=== PATIENT | male | born 1975 | race Caucasian/White ===

== ENCOUNTER 2023-11-08 01:48 | Day surgery (SDC) | payer BC, SELFPAY ==
[2023-10-27 09:20] VITALS: BMI 40.2
[2023-11-08 10:56] VITALS: BP 140/90; PULSE 82; RESP 18; TEMP 36.1; O2SAT 100
--- NOTE | 2023-11-08 11:04 | P.PNAN_ITS ---
Anes - Initial Pre Proc Eval Procedure: Operation Date: 11/08/23 15:00 Proposed Procedures p Colonoscopy - Miguel Jett MD Date/Time: 11/08/23 11:04 Surgeon: Miguel Jett MD Pre Op Diagnosis: anemia Patient Data Age: 48 Gender: M Height: 1.73 m Weight: 114.8 kg Last Vital Signs Temp 96.9 F L 11/08/23 10:56 Pulse 82 11/08/23 10:56 Resp 82 H 11/08/23 10:56 BP 140/90 11/08/23 10:56 Pulse Ox 100 11/08/23 10:56 O2 Del Method Room Air 11/08/23 10:56 Allergies Allergy/AdvReac Type Severity Reaction Status Date / Time No Known Allergies Allergy Verified 11/08/23 10:53 Home Medications Medication Instructions Recorded Confirmed Type amlodipine 10 mg-benazepril 40 mg 1 cap PO DAILY 10/27/23 11/08/23 History capsule atorvastatin 10 mg tablet 10 mg PO DAILY 10/27/23 11/08/23 History metformin 500 mg tablet 1,000 mg PO BID 10/27/23 11/08/23 History metoprolol tartrate 50 mg tablet 50 mg PO BID 10/27/23 11/08/23 History semaglutide 2 mg/dose (8 mg/3 mL) 2 mg subcut WEEKLY 10/27/23 11/08/23 History subcutaneous pen injector (Ozempic) triamterene 37.5 1 tablet PO DAILY 10/27/23 11/08/23 History mg-hydrochlorothiazide 25 mg tablet Patient hx anesthesia problems: none Family hx anesthesia problems: none Results Review: All pre-operative results and documents have been reviewed as part of the pre- operative evaluation. PMFSH Social History Social History Drinks per week: 1 Living arrangements: with family Spiritual care concerns: No Anes - Eval Final PreProcedure Day of Procedure 11/08/23 11:04 Patient weight: obese Heart: regular rate and rhythm Lungs: clear to auscultation Airway: Mallampati scale class II Neurological: alert and oriented Last oral intake: >/= 8 hours ASA classification: III Emergent: no Anesthetic plan: proceed Anesthesia type and monitoring: general GIVS and standard monitoring Results Review: All pre-operative results and documents have been reviewed as part of the pre- operative evaluation. Informed Consent: The patient's anesthetic plan and its attendant risks and benefits were discussed with the patient/family/POA. Questions were solicited and answers provided to the satisfaction of the patient/family/POA.
[2023-11-08] MEDS: LACTATED RINGERS 1,000 ML 150 ML IV CONT (11:06)
[2023-11-08 11:07] LABS: Glucose Point of Care 120 mg/dl (65-105)
--- NOTE | 2023-11-08 11:10 | PM.HPGS ---
History of Present Illness History of Present Illness Consent: Risks, benefits, and alternatives have been discussed and questions answered. Patient agrees to proceed with procedure. Chief complaint: anemia Narrative: Reji Smith is a 48 year old male with anemia, also noted small amount of blood after defecation- ? hemorrhoids, never had colonoscopy Review of Systems Review of Systems: All systems reviewed & are unremarkable except as noted in HPI and below PMFSH Past Medical History Medical History (Updated 11/08/23 @ 11:11 by Miguel Jett MD) Anemia Social History Social History Drinks per week: 1 Living arrangements: with family Spiritual care concerns: No Meds Home Medications and Allergies Home Medications Medication Instructions Recorded Confirmed Type amlodipine 10 mg-benazepril 40 mg 1 cap PO DAILY 10/27/23 11/08/23 History capsule atorvastatin 10 mg tablet 10 mg PO DAILY 10/27/23 11/08/23 History metformin 500 mg tablet 1,000 mg PO BID 10/27/23 11/08/23 History metoprolol tartrate 50 mg tablet 50 mg PO BID 10/27/23 11/08/23 History semaglutide 2 mg/dose (8 mg/3 mL) 2 mg subcut WEEKLY 10/27/23 11/08/23 History subcutaneous pen injector (Ozempic) triamterene 37.5 1 tablet PO DAILY 10/27/23 11/08/23 History mg-hydrochlorothiazide 25 mg tablet Allergies Allergy/AdvReac Type Severity Reaction Status Date / Time No Known Allergies Allergy Verified 11/08/23 10:53 Vital Signs Vital Signs - 24 hr 11/08/23 10:56 Temperature 96.9 F L Pulse Rate 82 Respiratory Rate 82 H Blood Pressure 140/90 Pulse Oximetry 100 Oxygen Delivery Room Air Exam Const: General: comfortable and no acute distress HENMT: Face/Nose/Sinus: Normal nares present Eyes: General: appearance normal, both eyes and all related structures Neck: Neck: no JVD Resp: Auscultation: clear to auscultation bilaterally Cardio: Rate: regular rate Rhythm: regular rhythm GI: Inspection: non-distended GI Palp: Yes Soft to palpation Skin: General skin exam: normal color Neuro: General: gait normal Speech: normal speech Extrem: General: normal to inspection Psych: Mental Status: mental status grossly normal Assessment and Plan Assessment and plan (1) Anemia: Code(s): D64.9 - Anemia, unspecified Status: Acute Assessment and Plan: colonoscopy
[2023-11-08 11:28] VITALS: BP 117/70; PULSE 83; RESP 20; O2SAT 100
[2023-11-08 11:38] VITALS: BP 136/91; PULSE 82; RESP 17; O2SAT 99
[2023-11-08 11:48] VITALS: BP 139/94; PULSE 83; RESP 18; O2SAT 98
== END 2023-11-08 12:02 | disposition home or self-care (01) ==
PROVIDERS: Visit Provider Internal Medicine Gastroenterology
PROC: 0DJD8ZZ Inspection of Lower Intestinal Tract, Via Natural or Artificial Opening Endoscopic (ICD-10-PCS; CPT 45378; principal; 2023-11-08 15:00)
DX: C20 Malignant neoplasm of rectum (principal); D64.9 Anemia, unspecified; E66.9 Obesity, unspecified; Z68.38 Body mass index [BMI] 38.0-38.9, adult; Z79.84 Long term (current) use of oral hypoglycemic drugs; Z79.85 Long-term (current) use of injectable non-insulin antidiabetic drugs
CPT/HCPCS: 45380; 82948; 88305; 88342; J2704; J7120

== ENCOUNTER 2023-11-11 13:08 | Outpatient (CLI) | payer BC, SELFPAY ==
--- NOTE | ~2023-11-11 | CT_ITS ---
CT of the Abdomen and Pelvis: Indication: Rectal mass Technique: 2.5 mm axial scans were obtained through the abdomen and pelvis following intravenous adm inistration of 100 cc of Omnipaque 350. Dose reduction technique was used on this scan by utilizing a utomated exposure control and iterative reconstruction technique. The dose-length product (DLP) was 1 194.42 mGy-cm. Findings: Scans through the lung bases are unremarkable. The liver, spleen, pancreas, gallbladder, adrenals and kidneys are within normal limits. No evidence of aortic aneurysm. No para-aortic lymphadenopathy. There is circumferential wall thickening of the distal rectum, consistent with rectal adenocarcinoma. No bowel obstruction. Images through the pelvis were performed. There is an enlarged left pelvic sidewall lymph node measur ing 2.1 x 1.7 cm (axial image 154). There are enlarged bilateral inguinal lymph nodes, measuring 4.0 x 2.2 cm on the left, and 4.0 x 2.4 cm and the right. Suspected mildly enlarged right pelvic lymph no de measuring 1.6 cm in diameter (axial image 150). Impression: Circumferential wall thickening of distal rectum is consistent with rectal adenocarcinoma. Lesion racheal sures approximately 7 cm in length. Probable metastatic lymphadenopathy in the bilateral inguinal regions, left pelvic sidewall, and ques tionably in the posterior pelvis. Please see details above. Consider PET/CT to further evaluate/stage, as indicated. Reviewed, dictated and finalized at [facility]. Impression: Circumferential wall thickening of distal rectum is consistent with rectal bonnie ocarcinoma. Lesion measures approximately 7 cm in length. Probable metastatic lymphadenopathy in the bilateral inguinal regions, left pel toyin sidewall, and questionably in the posterior pelvis. Please see details abov e. Consider PET/CT to further evaluate/stage, as indicated.
[2023-11-11 13:30] LABS: Estimated Glomerular Filt Rate > 60
== END 2023-11-11 13:09 ==
PROVIDERS: PCP Internal Medicine Gastroenterology; Visit Provider Internal Medicine Gastroenterology
DX: D64.9 Anemia, unspecified (principal); K62.89 Other specified diseases of anus and rectum
CPT/HCPCS: 74177; Q9967

== ENCOUNTER 2023-11-15 11:38 | Outpatient (CLI) | payer BC, SELFPAY ==
[2023-11-15 11:55] LABS: Basophils Percent Auto 0.4 % (0.2-1.2); Eosinophils Absolute Auto 0.2 K/mm3 (0-0.3); Eosinophils Percent Auto 2.2 % (0-4.4); Hematocrit 30.2 % (42.0-52.0); Hemoglobin 9.3 g/dL (14.0-18.0); Immature Granulocyte Absolute 0.04 K/mm3 (0.00-0.031); Immature Granulocyte Percent A 0.4 % (0-0.5); Lymphocytes Absolute Auto 1.88 K/mm3 (0.9-3.2); Lymphocytes Percent Auto 18.7 % (18.3-44.2); Mean Corpuscular HGB Conc 30.8 g/dl (32-36); Mean Corpuscular Hemoglobin 24.3 pg (26-34); Mean Corpuscular Volume 78.9 fl (80-100); Mean Platelet Volume 8.3 fl (7.4-10.4); Monocytes Absolute Auto 0.6 K/mm3 (0.1-0.6); Neutrophils Absolute Auto 7.3 K/mm3 (1.3-6.7); Neutrophils Percent Auto 72.3 % (45.5-73.1); Platelet Count Result 369 k/mm3 (150-375); Red Blood Count 3.83 M/mm3 (4.6-6.20); Red Cell Distribution Width 15.8 % (11.5-14.5); White Blood Count 10.1 K/mm3 (4.5-10.0)
[2023-11-15 12:00] LABS: Anisocytosis 1+; Microcytosis 1+ (NORMAL); Platelet Estimate Adequate (Adequate); Schistocytes None Seen; Stomatocytes 1+
[2023-11-15 19:37] LABS: Iron 40 ug/dL (49-181)
[2023-11-15 19:59] LABS: Percent Iron Saturation 9 % (20-50)
[2023-11-15 20:01] LABS: Alanine Aminotransferase 12 U/L (6-50); Albumin Level 4.2 g/dL (3.5-5.1); Alkaline Phosphatase 82 U/L (38-126); Anion Gap 8 mmol/L (8-16); Aspartate Amino Transferase 18 U/L (17-59); Bilirubin,Total 0.6 mg/dL (0.2-1.3); Blood Urea Nitrogen 19 mg/dL (9-20); Calcium 9.6 mg/dL (8.4-10.2); Carbon Dioxide 25 mmol/L (22-30); Chloride 101 mmol/L (98-107); Estimated Glomerular Filt Rate > 60; Glucose 154 mg/dL (65-110); Potassium 4.3 mmol/L (3.4-5.0); Sodium 134 mmol/L (137-145)
[2023-11-15 20:14] LABS: Ferritin 7.42 ng/mL (17.9-464)
[2023-11-15 21:07] LABS: Folic Acid > 20.0 ng/mL (2.76->20)
== END 2023-11-15 11:39 | disposition home or self-care (01) ==
LOC: ANHLAB 11:39
PROVIDERS: PCP Internal Medicine Gastroenterology; Visit Provider Internal Medicine Hematology & Oncology
DX: D64.9 Anemia, unspecified (principal)
CPT/HCPCS: 36415; 80053; 82607; 82728; 82746; 83540; 83550; 85025

== ENCOUNTER 2023-11-18 08:51 | Outpatient (CLI) | payer BC, SELFPAY ==
--- NOTE | ~2023-11-18 | PE_ITS ---
EXAMINATION: PET skull to mid thigh DATE: 11/18/2023 11:38 INDICATION: Rectal cancer metastasized intrapelvic lymph node. TECHNIQUE: Blood glucose level was 130 mg/dL. 10.295 mCi of 18-fluorodeoxyglucose (18-FDG) was admini stered i.v. Low dose computed tomography (CT) images were acquired from the base of the brain to the proximal thighs for attenuation correction and anatomic localization. Automated exposure control was employed. Dose-length product (DLP) was 1430 mGy-cm. Positron emission tomography (PET) images were a cquired in the same distribution. COMPARISON: CT abdomen and pelvis 11/11/2023 FINDINGS: Head/neck: There are no pathologically enlarged lymph nodes. Chest: The lungs demonstrate mosaic attenuation, likely small airways disease. No pleural effusion. T he heart size is normal. No pericardial effusion. There are coronary artery calcifications. There are no pathologically enlarged lymph nodes. Abdomen/pelvis/proximal thighs: There is a 2.1 cm mass in left hepatic lobe with maximum SUV of 6.2. The gallbladder is distended, likely secondary to fasting. The spleen, pancreas, adrenal glands, and kidneys are normal. The bladder is distended. There are bilateral inguinal hernias containing fat. Th ere is wall thickening of the anus and rectum with maximum SUV of 19.8. There are no dilated loops of bowel. There are enlarged perirectal, bilateral internal iliac, left external iliac, and bilateral i nguinal lymph nodes with increased activity. For example, a 3.9 x 2.4 cm right inguinal node demonstr ates maximum SUV of 10.1. There is no free intraperitoneal fluid. IMPRESSION: 1. Wall thickening of the anus and rectum with increased activity, consistent with primary malignancy . 2. Pelvic lymphadenopathy and liver mass with increased activity, consistent with metastatic disease. Reviewed, dictated and finalized at location A. IMPRESSION: 1. Wall thickening of the anus and rectum with increased activity, consistent w ith primary malignancy. 2. Pelvic lymphadenopathy and liver mass with increased activity, consistent wi th metastatic disease.
[2023-11-18 09:18] LABS: Glucose Point of Care 130 mg/dl (65-105)
== END 2023-11-18 08:52 | disposition home or self-care (01) ==
PROVIDERS: Visit Provider Internal Medicine Hematology & Oncology
DX: C20 Malignant neoplasm of rectum (principal); C77.5 Secondary and unspecified malignant neoplasm of intrapelvic lymph nodes
CPT/HCPCS: 78815; A9552

== ENCOUNTER 2023-11-24 02:06 | Day surgery (SDC) | payer BC, SELFPAY ==
[2023-11-16 13:08] VITALS: BMI 38.6
--- NOTE | 2023-11-16 13:12 | PC.NURSE ---
Report to the Outpatient Waiting Room, entrance under the green pavilion located off [facility], at time 0630 on date 11/24/23. Planned Procedure Time: 0830. Time changes happen often and if your time is changed the preop area will call you the afternoon before. - You and your visitor will be asked to self-screen and do not enter if you have any COVID symptoms. - A mask is optional within the hospital at this time. Patients may have clear liquids (water, carbonated beverages, clear teas, apple juice) until 3 hours prior to surgery with a maximum of 20 ounces. - No food from midnight until time of surgery Take the following medications with a SIP of water the morning of surgery: METOPROLOL DO NOT STOP ANY OF YOUR OTHER PRESCRIPTION MEDICATIONS PRIOR TO SURGERY ?EXCEPT THE FOLLOWING Medications to discontinue per physician: VITAMINS/SUPPLEMENTS Date to take last dose: 11/20/23 Please no make-up, nail upper sorbian, hairspray, perfume, deodorant, or body powder the day of surgery. No jewelry (including any body piercings) or valuables the day of surgery, leave them at home. Please take a shower or bath the night before, or the morning of, surgery with an antibacterial soap. Wear comfortable, loose fitting clothing. - Jewelry must be removed prior to entering the operating room. Rings and piercings that are not removed may be cut off. - The hospital will not accept responsibility for valuables. - Please leave all valuables, including medications, at home the day of surgery. If you are going home after surgery, a licensed tower truck driver must drive you home. - NO public transportation without another adult if you receive anesthesia. - We recommend that an adult stay with you for 24 hours following discharge. - We also recommend that you do not drive, make important decision, drink alcoholic beverages, or take any drugs that were not prescribed by your health care provider for at least 24 hours after your discharge time. Follow any additional instructions given to you from your surgeon. If you or anyone in your household have experienced Covid symptoms in the past week, please notify your surgeon or the nurse liaison at the phone number below for possible testing. Telephone instructions given to NAGELA BURGOS and asked if any additional questions and then verbalized understanding. Patient advised to call surgeon office or pre surgery nurse liaison [phone] if any additional questions.
--- NOTE | 2023-11-23 17:43 | PM.SD2 ---
Same Day Admit/Disch: HPI History of Present Illness Chief complaint: Stage IV rectal cancer Narrative: Reji Smith is a 48 year old male with a large adenocarcinoma the rectum diagnosed at colonoscopy with biopsy. PET CT scan shows a suspicious lesion in the liver as well as inguinal suspicious lesions. He has been referred for placement of a Port-A-Cath as neoadjuvant chemo radiation therapy is planned. He is taken to the operating room at this time for Port-A-Cath placement. [facility] Past Medical History Medical History Anemia Rectal mass Social History Social History Smoking status: Never smoker Alcohol intake: current Drinks per week: 1 Alcohol use details: VERY RARE Substance use: never Substance use type: does not use Living arrangements: with family Spiritual care concerns: No Same Day Admit/Disch: Med Pre-admit Medications Home Medications Medication Instructions Recorded Confirmed Type amlodipine 10 mg-benazepril 40 mg 1 cap PO DAILY 10/27/23 11/23/23 History capsule atorvastatin 10 mg tablet 10 mg PO DAILY 10/27/23 11/23/23 History metformin 500 mg tablet 1,000 mg PO BID 10/27/23 11/23/23 History metoprolol tartrate 50 mg tablet 50 mg PO BID 10/27/23 11/23/23 History semaglutide 2 mg/dose (8 mg/3 mL) 2 mg subcut WEEKLY 10/27/23 11/23/23 History subcutaneous pen injector (Ozempic) triamterene 37.5 1 tablet PO DAILY 10/27/23 11/23/23 History mg-hydrochlorothiazide 25 mg tablet ascorbic acid (vitamin C) 500 mg 500 mg PO DAILY 11/16/23 11/23/23 History tablet (Vitamin C) ferrous sulfate 325 mg (65 mg 325 mg PO BID 11/16/23 11/23/23 History iron) tablet (Iron (ferrous sulfate)) ibuprofen 600 mg tablet 600 mg PO Q6H PRN pain #14 tabs 11/24/23 Rx oxycodone-acetaminophen 5 mg-325 0.5 - 1 tablet PO Q6H PRN pain #10 11/24/23 Rx mg tablet tabs Review of Systems Review of Systems All systems reviewed & are unremarkable except as noted in HPI and below (HPI) Exam Const: General: comfortable, no acute distress, alert and awake HENMT: Head: normocephalic and atraumatic Mouth: Yes Normal oral and palatal mucosa present Eyes: Conjunctivae: conjunctivae normal Pupils: Equal, round and reactive pupils present EOM: EOMs intact bilaterally Neck: Neck: normal visual inspection, no lymphadenopathy and nontender Resp: Effort & Inspection: normal respiratory effort Auscultation: clear to auscultation bilaterally Cardio: Rate: regular rate Rhythm: regular rhythm Heart sounds: no gallops, no murmurs and no rubs GI: Inspection: non-distended GI Palp: Yes Soft to palpation, No Tenderness to palpation present (GI), No Hepatomegaly present and No Splenomegaly present Skin: Lesions: no lesions Rashes: no rashes Neuro: General: no focal motor deficits and CN's II-XI intact bilaterally Cranial nerves: Yes Equal, round and reactive pupils present, Yes Bilaterally intact EOM present, Yes facial symmetry and Yes Midline tongue present Speech: normal speech Motor exam (neuro): 5/5 motor strength present throughout and Motor abnormalities not present Extrem: General: no clubbing, cyanosis or edema and edema Psych: Affect: normal affect Thought process: Normal thought process present Insight: Good insight present (Psych) DS: Summary Time Spent with Patient Time attestation: Total time spent providing and/or coordinating discharge services: DS: Admitting Diagnosis Discharge Date 11/24/2023 Admitting Diagnosis Stage IV rectal cancer Inadequate venous access for chemotherapy-plan to proceed with placement of Port-A-Cath under anesthesia using ultrasound and fluoroscopic guidance. I discussed the procedure, risks, alternatives, benefits with the patient. The usual length of the procedure as well as recovery were discussed. All questions were answered. He unders
--- NOTE | ~2023-11-24 | XR_ITS ---
EXAMINATION: XR chest port-a-cath/central DATE: 11/24/2023 10:26 INDICATION: Port placement. TECHNIQUE: A single frontal view of the chest was obtained. COMPARISON: PET/CT 11/18/2023 FINDINGS: There is no pneumonia, pleural effusion, or pneumothorax. The heart size is normal. There i s a left subclavian port with tip at superior cavoatrial junction. IMPRESSION: 1. Port tip at superior cavoatrial junction. Reviewed, dictated and finalized at location A.
--- NOTE | ~2023-11-24 | XR_ITS ---
EXAMINATION: XR fl guide central line place DATE: 11/24/2023 09:16 INDICATION: Port placement. TECHNIQUE: 2 intraoperative fluoroscopic views of the chest were obtained. I was not present. Fluoros copy exposure time was 42 seconds. COMPARISON: Chest single view 11/24/2023 FINDINGS: There is a left subclavian port with tip not included. IMPRESSION: 1. Left subclavian port with tip not included, but at least to the superior vena cava. Reviewed, dictated and finalized at location A. IMPRESSION: 1. Left subclavian port with tip not included, but at least to the superior wai a cava.
[2023-11-24] MEDS: LACTATED RINGERS 1,000 ML 30 ML IV CONT (07:20)
[2023-11-24] MEDS: KETOROLAC 15 MG/ML VIAL (*BKC) IV PUSH (08:08)
[2023-11-24 08:11] VITALS: BP 138/89; PULSE 91; RESP 16; TEMP 37; O2SAT 100
--- NOTE | 2023-11-24 08:12 | WPDHPUPDATE1 ---
History and Physical Update Update Date/Time: 11/24/23 08:12 History and Physical has been reviewed, including an updated exam of the patient. There are NO changes in the patient's condition. Risks, benefits, and alternatives have been discussed and questions answered. Patient agrees to proceed with procedure.
--- NOTE | 2023-11-24 08:21 | WPDANESEPPF ---
Anes - Initial Pre Proc Eval Procedure: Operation Date: 11/24/23 08:30 Proposed Procedures p Insertion Anahi Cath - Jason Woods MD Date/Time: 11/24/23 08:21 Surgeon: Jason Woods MD Pre Op Diagnosis: Stage IV rectal cancer Patient Data Age: 48 Gender: M Height: 1.74 m Weight: 117 kg Last Vital Signs Temp 98.6 F 11/24/23 08:11 Pulse 91 11/24/23 08:11 Resp 16 11/24/23 08:11 BP 138/89 11/24/23 08:11 Pulse Ox 100 11/24/23 08:11 O2 Del Method Room Air 11/24/23 08:11 Allergies Allergy/AdvReac Type Severity Reaction Status Date / Time No Known Allergies Allergy Verified 11/24/23 06:37 Home Medications Medication Instructions Recorded Confirmed Type amlodipine 10 mg-benazepril 40 mg 1 cap PO DAILY 10/27/23 11/23/23 History capsule atorvastatin 10 mg tablet 10 mg PO DAILY 10/27/23 11/23/23 History metformin 500 mg tablet 1,000 mg PO BID 10/27/23 11/23/23 History metoprolol tartrate 50 mg tablet 50 mg PO BID 10/27/23 11/23/23 History semaglutide 2 mg/dose (8 mg/3 mL) 2 mg subcut WEEKLY 10/27/23 11/23/23 History subcutaneous pen injector (Ozempic) triamterene 37.5 1 tablet PO DAILY 10/27/23 11/23/23 History mg-hydrochlorothiazide 25 mg tablet ascorbic acid (vitamin C) 500 mg 500 mg PO DAILY 11/16/23 11/23/23 History tablet (Vitamin C) ferrous sulfate 325 mg (65 mg 325 mg PO BID 11/16/23 11/23/23 History iron) tablet (Iron (ferrous sulfate)) Laboratory Tests 11/24/23 07:29 PT Pending INR Pending APTT Pending Patient hx anesthesia problems: none and other (Pts reports that the pt was restless during his colonoscopy anesthetic. ) Family hx anesthesia problems: none Results Review: All pre-operative results and documents have been reviewed as part of the pre-operative evaluation. [facility] Past Medical History Medical History Anemia Rectal mass Social History Social History Smoking status: Never smoker Alcohol intake: current Drinks per week: 1 Alcohol use details: VERY RARE Substance use: never Substance use type: does not use Living arrangements: with family Spiritual care concerns: No Anes - Eval Final PreProcedure Day of Procedure 11/24/23 08:21 Patient weight: obese Heart: regular rate and rhythm Lungs: clear to auscultation Airway: Mallampati scale class II Neurological: alert and oriented Last oral intake: >/= 8 hours ASA classification: III Emergent: no Anesthetic plan: proceed Anesthesia type and monitoring: general and standard monitoring Results Review: All pre-operative results and documents have been reviewed as part of the pre-operative evaluation. Informed Consent: The patient's anesthetic plan and its attendant risks and benefits were discussed with the patient/family/POA. Questions were solicited and answers provided to the satisfaction of the patient/family/POA.
[2023-11-24 08:29] LABS: Prothrombin Time 13.5 Seconds (11.1-14.7)
[2023-11-24 08:30] LABS: Partial Thromboplastin Time 26.7 Seconds (22.3-36.8)
[2023-11-24 08:37] LABS: Glucose Point of Care 124 mg/dl (65-105)
[2023-11-24] MEDS: ceFAZolin 2 GM/D5W 50 ML 2 GM/50 ML BAG IVPB (08:38)
--- NOTE | 2023-11-24 08:43 | P.OP_ITS ---
Procedure Note - Detailed Date of Procedure 11/24/23 Pre-op Diagnosis Stage IV rectal cancer, inadequate venous access for chemotherapy Post-op Diagnosis Same Procedure Performed Placement left subclavian Port-A-Cath under fluoroscopy Surgeon Jason Woosd MD [employer] Dodie Weathers [facility] Anesthesia MAC and Local Indications Patient has been found to have rectal cancer with liver metastases. He is going to be receiving chemo radiation therapy, then possibly surgery. He is taken for placement of a Port-A-Cath as requested by his oncologist. Findings Port-A-Cath tip in distal SVC, right atrial junction. Description of Procedure Patient was taken to surgery and anesthesia was introduced. The left upper chest and left neck were prepped and draped. The proposed Port-A-Cath incision was marked on the skin under the left clavicle. Local anesthetic was infiltrated in the area of the anticipated incision as well as the deeper subcutaneous tissues. Incision was made and dissection was carried down through the subcutaneous and through the pectoralis major fascia. More local was infiltrated. A subfascial pocket was then created. Cautery was used for hemostasis. The left subclavian vein was then cannulated and a guidewire was able to be passed into the superior vena cava as documented by C-arm fluoroscopy. The Port-A-Cath was then placed over the tract of the guidewire and the length of intravenous tubing was estimated. The Port-A-Cath tubing was then cut to the appropriate length. The tract was dilated and a sheath was left behind. The Port-A-Cath was passed through the sheath and into the distal SVC, right atrial junction. Port-A-Cath was tested and it aspirated blood easily and flushed well with heparin. All looked good. We closed the wound in layers with Vicryl suture. The skin was closed with running subcuticular 4-0 Monocryl skin suture. The wound was dressed with Exofin surgical adhesive. Patient was awakened and taken to recovery in good condition. Portable chest x-ray is pending. Sponge and needle counts were correct x2. Implants Vortex Port-A-Cath Estimated Blood Loss -5 Drains No Packing No Pathology None sent Complications No immediate complications Condition Stable Disposition Same day [facility] Billing Surgery - Charge Forward: Surgery Billing (Placement Port-A-Cath under fluoroscopy)
[2023-11-24] MEDS: BUPIVACAINE/EPINEPHRINE 0.5% 50 ML VIAL 30 ML INFILTRATE (09:01)
[2023-11-24] MEDS: HEPARIN SODIUM 1,000 UNITS/ML VIAL 1000 UNITS IV PUSH (09:01)
[2023-11-24 09:26] VITALS: BP 124/73; PULSE 91; RESP 16; O2SAT 99
[2023-11-24 09:35] LABS: Glucose Point of Care 155 mg/dl (65-105)
[2023-11-24 09:55] VITALS: BP 122/79; PULSE 92; RESP 16
[2023-11-24 10:13] VITALS: BP 129/85; PULSE 86; RESP 16
== END 2023-11-24 10:37 | disposition home or self-care (01) ==
PROVIDERS: Visit Provider Surgery
PROC: (CPT 36561; principal; 2023-11-24 08:30)
DX: C20 Malignant neoplasm of rectum (principal); C78.7 Secondary malignant neoplasm of liver and intrahepatic bile duct; D64.9 Anemia, unspecified; Z79.84 Long term (current) use of oral hypoglycemic drugs; Z79.85 Long-term (current) use of injectable non-insulin antidiabetic drugs
CPT/HCPCS: 36561; 36415; 77001; 82948; 85610; 85730; C1788; J0690; J1644; J1885; J2250; J2405; J2704; J3010; J7030; J7120

== ENCOUNTER 2023-12-06 13:18 | Outpatient (CLI) | payer BC, SELFPAY ==
--- NOTE | ~2023-12-06 | MR_ITS ---
EXAMINATION: MR abdomen wo/w con DATE: 12/06/2023 15:32 INDICATION: Liver mass. TECHNIQUE: Magnetic resonance imaging (MRI) of the abdomen was performed without and with 20 mL Multi Jael intravenous contrast. COMPARISON: PET/CT 11/18/2023 FINDINGS: There is low signal in the liver and spleen, consistent with siderosis. There is a 2.1 cm enhancing m ass in left hepatic lobe. There is a gallstone in the gallbladder, which is distended, likely seconda ry to fasting. There is an 8 mm cyst in the tail of the pancreas. The adrenal glands are normal. Ther e are cysts in the kidneys measuring up to 19 mm on the right. There are no dilated loops of bowel. T here are no pathologically enlarged lymph nodes. There is no free intraperitoneal fluid. IMPRESSION: 1. 2.1 cm enhancing mass in left hepatic lobe, consistent with metastatic disease. 2. 8 mm cyst in the tail of the pancreas. The differential diagnosis includes pseudocyst, intraductal papillary mucinous neoplasm (IPMN), mucinous cystic neoplasm (MCN), serous cystadenoma, and neuroend ocrine tumor. Consider abdomen MRI without and with contrast in one year. Reviewed, dictated and finalized at location E. IMPRESSION: 1. 2.1 cm enhancing mass in left hepatic lobe, consistent with metastatic disea se. 2. 8 mm cyst in the tail of the pancreas. The differential diagnosis includes p seudocyst, intraductal papillary mucinous neoplasm (IPMN), mucinous cystic neop lasm (MCN), serous cystadenoma, and neuroendocrine tumor. Consider abdomen MRI without and with contrast in one year.
== END 2023-12-06 13:19 | disposition home or self-care (01) ==
PROVIDERS: Visit Provider Radiology Radiation Oncology
DX: C78.7 Secondary malignant neoplasm of liver and intrahepatic bile duct (principal); K86.2 Cyst of pancreas
CPT/HCPCS: 74183; A9577

== ENCOUNTER 2023-12-07 09:05 | Outpatient (CLI) | payer BC, SELFPAY ==
[2023-11-30 15:01] VITALS: BMI 38.6
--- NOTE | 2023-11-30 15:01 | PC.NURSE ---
Pre Radiology instructions Report to the RADIOLOGY/IMAGING ENTRANCE on date 12/07/23 at time 0900 for procedure Time: 0930. YOU MAY BE MONITORED AT HOSPITAL FOR UP TO 4 HOURS AFTER YOUR PROCEDURE. A visitor will be allowed to accompany the patient into the hospital. You and your visitor will be asked to self-screen and do not enter if you have any COVID symptoms. A mask is OPTIONAL within the hospital. Patients are to have no food or drink 6 hours prior to procedure time Driving will be restricted after the procedure, you must have a person to drive you home. Labs will be drawn in preop area and once reviewed, you will be taken to radiology area for procedure. When the procedure is completed, you will be taken to outpatient where you will be monitored for several hours. You may have one visitor in this area. Other than holding anti-coagulants, patient may take other medication(s) as scheduled. Prior to your appointment date patients are instructed to hold anti-coagulants after discussing with ordering provider to stop. If unable to discontinue anti-coagulants please notify radiologist. ? No aspirin or warfarin (Coumadin) for 7 days prior to the procedure. ? No clopidogrel (Plavix), ticagrelor (Brilinta), prasugrel (Effient) or dabigatran (Pradaxa) for 5 days prior to the procedure. ? No rivaroxaban (Xarelto), apixaban (Eliquis), dipyridamole (Aggrenox or Persantine) or cilostazol (Pletal) for 2 days prior to the procedure. Medications to discontinue per physician: N/A Date to take last dose: N/A Please leave all valuables, including medications, at home the day of procedure. The hospital will not accept responsibility for valuables. Wear comfortable, loose fitting clothing.? Follow any additional instructions given to you from ordering provider. Telephone instructions given to ANGELA BURGOS and asked if any additional questions and then verbalized understanding. Patient advised to call scheduling provider office or registration scheduling [phone] if any additional questions.
[2023-12-07] VITALS (11 sets, daily range): BP systolic 109–128; BP diastolic 66–91; PULSE 83–88; O2SAT 98–100
--- NOTE | ~2023-12-07 | US_ITS ---
EXAMINATION: US biopsy liver DATE: 12/07/2023 10:35 INDICATION: FDG avid liver lesions suspicious for metastatic disease TECHNIQUE: The procedure including the risks and benefits was discussed with the patient. Risks discu ssed included bleeding and infection. The patient understood the risks and agreed to proceed. The sk in overlying the left hepatic lobe was prepped and draped in usual sterile fashion. Anesthetic was a dministered with 1% lidocaine subcutaneously. An 18 gauge core biopsy needle was advanced under cont inuous ultrasound observation to the lesion of interest. 4 core biopsy specimens were obtained. The needle was removed and the entry site was cleaned and dressed. Post procedure ultrasound demonstrat ed no hemorrhage. FINDINGS: Ultrasound images demonstrate subtle decreased echogenicity and associated bulge along the anterior capsule of the liver associated with the previous noted enhancing mass. The mass can also be identified by its position at the cephalad anterior margin of the hyperechoic fat at the left raheem hepatis. IMPRESSION: 1. Successful Ultrasound-guided biopsy of an approximately 2 cm left hepatic lobe mass. Reviewed, dictated and finalized at location A. IMPRESSION: 1. Successful Ultrasound-guided biopsy of an approximately 2 cm left hepatic lo be mass.
[2023-12-07 10:33] LABS: Glucose Point of Care 116 mg/dl (65-105)
== END 2023-12-07 14:27 | disposition home or self-care (01) ==
PROVIDERS: Referring Provider Radiology Radiation Oncology; Visit Provider Radiology Diagnostic Radiology
PROC: BF45ZZZ Ultrasonography of Liver (ICD-10-PCS; CPT 47000; principal; 2023-12-07 09:30)
DX: C78.7 Secondary malignant neoplasm of liver and intrahepatic bile duct (principal)
CPT/HCPCS: 47000; 76942; 82948; 88307; 88342

== ENCOUNTER 2024-02-22 08:37 | Outpatient (CLI) | payer BC, SELFPAY ==
--- NOTE | ~2024-02-22 | CT_ITS ---
CT chest abdomen pelvis w con Ordering provider: Olaf Nath MD History: . RECTAL CANCER METASTASIZED . Comparison: November 11, 2023 Technique: CT chest, abdomen and pelvis was performed following timed intravenous injection of contr ast. Thin slice axial images and reformatted coronal images were obtained. Three dimensional reformat nova images of the chest were also obtained using a [employer] workstation. Radiation reduction technique utilized. DLP is 1849.64 mGy. 100 mL of Omnipaque 350 was given IV. FINDINGS: Left central line with the tip in the superior vena cava. CHEST: --THORACIC AORTA: Mild atheromatous disease. No aneurysm, dissection or mediastinal hematoma. --GREAT VESSELS: Normal as visualized. --PULMONARY ARTERIES: No pulmonary embolus. --VISUALIZED THORACIC INLET: Normal. --MEDIASTINUM: Coronary arteries: Mild atheromatous disease. Heart/other: The heart is not enlarged. Lymph nodes: No mediastinal or hilar adenopathy. Small paratracheal and prevascular lymph nodes are n oted. --LUNGS: No pulmonary nodules or masses. No infiltrates or effusions. No pneumothorax. Focal atelectatic focus seen in the right lower lobe laterally. --MUSCULOSKELETAL: Superficial soft tissues: The superficial soft tissues are normal. Bones: Age appropriate degenerative changes of the spine. ABDOMEN/PELVIS: --MUSCULOSKELETAL: Bones: Age appropriate degenerative changes of the spine. Superficial soft tissues: Bilateral fat containing inguinal hernias. Bilateral inguinal enlarged lymp h nodes measuring 3.5 cm. Otherwise, The superficial soft tissues are normal. --UPPER ABDOMINAL ORGANS: Liver: Small focal area seen near to the interlobar fissure which measures 1.5 cm most likely focal f at infiltration. Metastatic lesion cannot be excluded although less likely. Follow-up advised.. Gallbladder: Distended with no stones. Spleen: Slight splenomegaly measuring 16 cm. Stomach/duodenum: Normal. Pancreas: Normal. Adrenals: tiny cysts in the left kidney upper pole and lower pole. Very tiny calcifications in the le ft kidney lower pole. Tiny cyst in the right kidney upper, middle and lower poles. Kidneys: Normal. --PELVIC ORGANS: The bladder is normal. No bladder stones. --BOWEL AND MESENTERY: Colon: Slightly thickened wall of the rectum. Clinical evaluation advised. No definite mass is seen i n the colon. Fecal material is filling of the colon. The appendix is not well demonstrated. Small Bowel: Normal. No obstruction. Peritoneum/mesentery: No free air or free fluid. No mesenteric lymphadenopathy. Left pararectal lymph node measuring 1.3 cm is noted. --RETROPERITONEUM: No retroperitoneal lymphadenopathy. Small are aortic lymph nodes are noted with t he largest measures 1.8 cm. --ARTERIES: ABDOMINAL AORTA: Mild atheromatous disease. No aneursym or dissection. IMPRESSION: CHEST: 1. ABDOMEN/PELVIS: 1. Thickening of the wall of the rectum. Clinical evaluation and sigmoidoscopy is advised. Left para rectal lymph node is noted. 2. No definite metastatic lesions in the liver. Small focal area seen near to the interlobar fissure which is most likely fat infiltration area unchanged from previous examination. 3. Enlarged bilateral inguinal lymph nodes. 4. Bilateral tiny renal cysts. 5. Splenomegaly. 6. Bilateral fat containing inguinal hernias. Reviewed, dictated and finalized at location A. IMPRESSION: CHEST: 1. ABDOMEN/PELVIS: 1. Thickening of the wall of the rectum. Clinical evaluation and sigmoidoscopy is advised. Left pararectal lymph node is noted. 2. No definite metastatic lesions in the liver. Small focal area seen near to the interlobar fiss
== END 2024-02-22 08:38 | disposition home or self-care (01) ==
LOC: ANHIMG 08:41
PROVIDERS: Visit Provider Internal Medicine Hematology & Oncology
DX: C20 Malignant neoplasm of rectum (principal); C77.5 Secondary and unspecified malignant neoplasm of intrapelvic lymph nodes
CPT/HCPCS: 71260; 74177; Q9967

== ENCOUNTER 2024-05-03 20:35 | Emergency (ER) | payer BC, SELFPAY ==
--- NOTE | ~2024-05-03 | XR_ITS ---
XR heel RT min 2V Ordering provider: Jessi Colon PA-C History: . DM wound TO LATERAL SIDE OF CALCANEOUS . Comparison: None. FINDINGS: BONES: No acute fracture or dislocation. Calcaneal spur. JOINT SPACES: Well maintained. SOFT TISSUES: Soft tissue swelling seen on the plantar aspect in the area of the calcaneus. Radiopaqu e foreign bodies are seen in the area. IMPRESSION: No acute osseous abnormality. Cellulitis. Foreign bodies seen in the soft tissues in the same area. Reviewed, dictated and finalized at location A.
[2024-05-03 21:03] VITALS: BP 136/81; PULSE 105; RESP 20; TEMP 36.5; O2SAT 100
--- NOTE | 2024-05-03 21:35 | PC.NURSE ---
pt returned from imaging via wheelchair at this time.
[2024-05-03 22:11] LABS: Basophils Percent Auto 0.5 % (0.2-1.2); Eosinophils Absolute Auto 0.2 K/mm3 (0-0.3); Hematocrit 29.9 % (42.0-52.0); Hemoglobin 10.3 g/dL (14.0-18.0); Immature Granulocyte Absolute 0.04 K/mm3 (0.00-0.031); Immature Granulocyte Percent A 0.5 % (0-0.5); Lymphocytes Percent Auto 31.3 % (18.3-44.2); Mean Corpuscular HGB Conc 34.4 g/dl (32-36); Mean Corpuscular Hemoglobin 31.4 pg (26-34); Mean Corpuscular Volume 91.2 fl (80-100); Mean Platelet Volume 9.7 fl (7.4-10.4); Monocytes Absolute Auto 1.2 K/mm3 (0.1-0.6); Monocytes Percent Auto 15.3 % (2.6-8.5); Neutrophils Percent Auto 50.4 % (45.5-73.1); Platelet Count Result 278 k/mm3 (150-375); Red Blood Count 3.28 M/mm3 (4.6-6.20); Red Cell Distribution Width 17.2 % (11.5-14.5)
[2024-05-03 22:14] LABS: Hemoglobin A1C 7.5 % (<5.7)
[2024-05-03 22:17] LABS: Prothrombin Time 13.5 Seconds (11.1-14.7)
[2024-05-03 22:18] LABS: Partial Thromboplastin Time 26.8 Seconds (22.3-36.8)
[2024-05-03 22:20] LABS: Lactic Acid Reflex 2.3 mmol/L (0.7-2.0)
[2024-05-03 22:22] LABS: Alanine Aminotransferase 15 U/L (6-50); Albumin Level 4.6 g/dL (3.5-5.1); Alkaline Phosphatase 112 U/L (38-126); Anion Gap 15 mmol/L (4-12); Aspartate Amino Transferase 22 U/L (17-59); Blood Urea Nitrogen 42 mg/dL (9-20); CRP 4.1 mg/dL (<1.0); Calcium 9.2 mg/dL (8.4-10.2); Carbon Dioxide 23 mmol/L (22-30); Chloride 95 mmol/L (98-107); Estimated CRCL calculation 67 ml/min; Estimated Glomerular Filt Rate 54; Glucose 276 mg/dL (65-110); Potassium 3.9 mmol/L (3.4-5.0); Sodium 133 mmol/L (137-145)
--- NOTE | 2024-05-03 23:17 | ED.WOUNDLAC ---
HPI - Wound/Laceration General Chief Complaint: Wound/Laceration Stated Complaint: heal wound Time Seen by Provider: 05/03/24 21:23 Source: patient Mode of arrival: ambulatory Limitations: no limitations History of Present Illness HPI narrative: Patient is a 48-year-old male, with pmh of DM, metastatic rectal CA currently on [id number] chemotherapy infusions, who presents to the ED with c/o R foot wound. Patient reports over the last few days, he has noticed areas of streaking redness throughout his right foot and heel. He states this would wax and wane with rest. He then noticed a blood blister like lesion to his right outer he will today, which prompted him to come to the ED. patient denies any fevers. He does not routinely check his blood sugars. Denies numbness, known injury. Denies lower leg pain or swelling. Related Data Home Medications Medication Instructions Recorded Confirmed amlodipine 10 mg-benazepril 40 mg 1 cap PO DAILY 10/27/23 04/27/24 capsule atorvastatin 10 mg tablet 10 mg PO DAILY 10/27/23 04/27/24 metformin 500 mg tablet 1,000 mg PO BID 10/27/23 04/27/24 metoprolol tartrate 50 mg tablet 50 mg PO BID 10/27/23 04/27/24 semaglutide 2 mg/dose (8 mg/3 mL) 2 mg subcut WEEKLY 10/27/23 04/27/24 subcutaneous pen injector (Ozempic) triamterene 37.5 1 tablet PO DAILY 10/27/23 04/27/24 mg-hydrochlorothiazide 25 mg tablet ascorbic acid (vitamin C) 500 mg 500 mg PO DAILY 11/16/23 04/27/24 tablet (Vitamin C) ferrous sulfate 325 mg (65 mg 325 mg PO BID 11/16/23 04/27/24 iron) tablet (Iron (ferrous sulfate)) Allergies Allergy/AdvReac Type Severity Reaction Status Date / Time No Known Allergies Allergy Verified 05/03/24 21:02 Review of Systems Review of Systems: All systems reviewed & are unremarkable except as noted in HPI. All systems reviewed & are unremarkable except as noted in HPI and below PMFSH Past Medical History Medical History (Updated 05/04/24 @ 03:47 by Jessi Colon PA-C) Anemia Diabetes Rectal mass Secondary malignant neoplasm of liver and intrahepatic bile duct Social History Social History Smoking status: Never smoker Alcohol intake: current Drinks per week: 1 Alcohol use details: VERY RARE Substance use: never Substance use type: does not use Living arrangements: with family Spiritual care concerns: No Exam Narrative: GENERAL: Appears older than stated age, obese with BMI of 32.4, non-toxic, in no acute distress. HEAD: Normocephalic, atraumatic. RESPIRATORY: Airway patent, respirations nonlabored. CARDIOVASCULAR: Regular rate and rhythm without murmurs, rubs, or gallops. Peripheral pulses are intact and easily palpable. MUSCULOSKELETAL: Moves all extremities. No gross deformities. Right foot with small irregular streak like areas of erythema to medial heel and arch, as well as right lateral/outer heel. Minimal warmth. Pinpoint puncture wound vs foreign body to middle of heel on plantar surface. Blister formation vs abscess to plantar surface along lateral heel with a second pinpoint puncture wound vs foreign body. Focal TTP along this region with some fluctuance. Sensation intact. Capillary refill intact. No tenderness or swelling throughout right lower leg/calf. SKIN: Warm, dry, normal color. NEURO: A&O X3. Speech clear. Cranial nerves II-XII grossly intact. Steady gait. No ataxic movements. PSYCHIATRIC: Appropriate mood and affect. Normal interaction. Course Vital Signs Vital signs: Vital Signs Temperature 97.7 F 05/03/24 21:03 Pulse Rate 105 H 05/03/24 21:03 Respiratory Rate 20 05/03/24 21:03 Blood Pressure 136/81 05/03/24 21:03 Pulse Oximetry 100 05/03/24 21:03 Oxygen Delivery Room Air 05/03/24 21:03 Temperature 97.9 F 05/04/24 01:24 Pulse Rate 78 05/04/24 01:24 Respiratory Rate 16 05/04/24 01:24 Blood Pressure 137/79 /1
[2024-05-03 23:32] LABS: Erythrocyte Sedimentation Rate 89 mm/hr (0-20)
[2024-05-04] MEDS: levoFLOXacin 750 MG TABLET PO (00:18)
[2024-05-04] MEDS: SODIUM CHLORIDE 0.9% IV 1,000 ML 999 ML IV CONT (00:18)
[2024-05-04] MEDS: SULFAMETHOXAZOLE/TRIMETHOPRIM 800/160 MG DS TABLET 1 TAB PO (00:18)
[2024-05-04] MEDS: metroNIDAZOLE 500 MG TABLET PO (00:18)
[2024-05-04 01:03] LABS: Reflex Lactic Acid Yes or No Add Lactic
[2024-05-04 01:24] VITALS: BP 137/79; PULSE 78; RESP 16; TEMP 36.6; O2SAT 98
== END 2024-05-04 01:26 | disposition home or self-care (01) ==
PROVIDERS: Emergency Provider Physician Assistant
DX: L03.115 Cellulitis of right lower limb (principal); L02.611 Cutaneous abscess of right foot; M79.5 Residual foreign body in soft tissue; E11.9 Type 2 diabetes mellitus without complications; C20 Malignant neoplasm of rectum; C78.7 Secondary malignant neoplasm of liver and intrahepatic bile duct
CPT/HCPCS: 36415; 73650; 80053; 83036; 83605; 85025; 85610; 85652; 85730; 86140; 87040; 87070; 87205; 96360; 99283; A9270; J7030

== ENCOUNTER 2024-06-06 12:46 | Outpatient (CLI) | payer BC, SELFPAY ==
--- NOTE | ~2024-06-06 | CT_ITS ---
Clinical Indication: Rectal cancer CT Scan of the Chest, Abdomen, and Pelvis with Contrast: Technique: Contiguous sections were acquired throughout the chest, abdomen, and pelvis after intraven ous administration of 100 cc of Omnipaque 350. Dose reduction technique was used on this scan by magda delcid automated exposure control and iterative reconstruction technique. The dose-length product (DL P) was 1807.53 mGy-cm. Comparison: 02/22/2024 Findings: There is no evidence of any significant mediastinal, hilar or axillary lymphadenopathy. The mediastin al soft tissues appear normal. There is no evidence of pleural or pericardial effusion. There are grouped centimeter nodules focally at the right lung base, stable from prior exam, suggesti ve of small impacted airways or focal small airways infectious process. There is a new 6 mm left lowe r lobe pulmonary nodule (axial image 65).. The liver, spleen, pancreas, gallbladder, adrenals and kidneys are within normal limits. No evidence of aortic aneurysm. No lymphadenopathy. Suspected irregular wall thickening the very distal rectum, near the anal canal. No bowel obstruction . Multiple mildly prominent perirectal lymph nodes are noted, similar to prior exam. Largest node pro bably measures 12 mm in short axis (axial image 25).. Urinary bladder is unremarkable. No pelvic mass seen. No ascites. Fat-containing bilateral inguinal h ernias are present. Impression: Probable irregular wall thickening of distal rectum, consistent with history of rectal adenocarcinoma . Multiple mildly enlarged perirectal lymph nodes, suspicious for local perirectal chana metastatic dis ease. These are similar to prior exam. Reviewed, dictated and finalized at location . Impression: Probable irregular wall thickening of distal rectum, consistent with history of rectal adenocarcinoma. Multiple mildly enlarged perirectal lymph nodes, suspicious for local perirecta l chana metastatic disease. These are similar to prior exam.
== END 2024-06-06 12:47 | disposition home or self-care (01) ==
PROVIDERS: Visit Provider Internal Medicine Hematology & Oncology
DX: C20 Malignant neoplasm of rectum (principal); C77.5 Secondary and unspecified malignant neoplasm of intrapelvic lymph nodes
CPT/HCPCS: 71260; 74177; Q9967

== ENCOUNTER 2024-10-25 08:24 | Outpatient (CLI) | payer BC, SELFPAY ==
--- OUTSIDE RECORDS SUMMARY | 2024-10-25 08:39 | XMS_ITS | Clinical Summary ---
Author Organization [facility] Address [address] [address] Phone Care Team Providers Care Locomotive Engineer Diesel Name Role Phone John Paul Antunez NP Primary Care Provider [phone] Miguel Serrano MD Unavailable + Lane Montano MD Unavailable [phone] Olaf Nath MD Unavailable [phone] Chidi Simons MD Unavailable Allergies No known active allergies Medications docosahexaenoi c acid-epa 120-180 mg capsule Take by mouth daily 7 Active blood glucose diagnostic (OneTouch Verio test strips) strip daily Active blood-glucose meter mis OneTouch Verio Reflect Meter USE DIRECTED Active lancets 33 gauge [facility] OneTouch Delica Plus Lancet 33 gauge CHECK BLOOD SUGARS TWICE DAILY Active tadalafiL (CIALIS) 20 mg tablet Take 1 tablet (20 mg total) by mouth daily as needed for erectile dysfunction 4 tablet 2 3 Active atorvastatin (LIPITOR) 10 mg tablet Take 1 tablet (10 mg total) by mouth daily 90 tablet 3 4 11/04/19 25 Active triamterene-hy droCHLOROthiaz hanane 37.5-25 mg per tablet TAKE 1 TABLET BY MOUTH EVERY DAY 90 tablet 3 4 Active amLODIPine-todd azepriL (LOTREL) 10-40 mg per capsule TAKE 1 CAPSULE BY MOUTH EVERY DAY 90 capsule 3 4 Active metoprolol tartrate (LOPRESSOR) 50 mg immediate release tablet TAKE 1 TABLET BY MOUTH TWICE A DAY 180 tablet 3 4 Active venlafaxine XR (EFFEXOR-XR) 75 mg 24 hr capsule Take 1 capsule (75 mg total) by mouth daily Take with food. 90 capsule 1 4 12/22/19 25 Active Additional Information Patient not taking.Reported on 10/02/2024 zolpidem (AMBIEN) 5 mg tablet Take 1 tablet (5 mg total) by mouth nightly as needed 4 Active ondansetron (ZOFRAN) 8 mg tablet Take 1 tablet (8 mg total) by mouth every 8 (eight) hours as needed for nausea or vomiting Active semaglutide (OZEMPIC) 2 mg/dose (8 mg/3 mL) pen injector injection Inject 2 mg under the skin every 7 days 9 mL 3 4 Active empagliflozin (JARDIANCE) 10 mg tablet Take 1 tablet (10 mg total) by mouth daily 90 tablet 1 5 Active capecitabine (XELODA) 500 mg tablet TAKE 3 TABLETS (1500 MG) TWICE DAILY WITH MEALS ON DAYS OF ONLY (WEDNESDAY THROUGH WEDNESDAY) 4 Active pregabalin (LYRICA) 150 mg capsule Take 1 capsule (150 mg total) by mouth 2 times daily 5 Active lactulose 0.67 gram/mL solution TAKE 30 ML BY MOUTH 2 TIMES DAILY NEEDED. 5 Active pregabalin (LYRICA) 75 mg capsule TAKE 1 CAPSULE (75 MG) BY MOUTH EVERY 12 HOURS. 5 10/02/19 25 Discontin ued(Alter regla therapy) Active Problems Problem Noted Date Diagnosed Date Rectal cancer metastasized to intrapelvic lymph node 12/31/2023 Assessment & Plan (12/31/2023 12:44 PM CDT): Under care of oncology - treatment determined by response to chemo Rectal cancer 12/14/2023 Class 2 severe obesity due t o excess calories with serious comorbidity and body mass index (BMI) of 35.0 to 35.9 in adult 08/05/2022 Assessment & Plan (10/02/2024 9:38 AM CALENDERING MACHINE OPERATOR): Plan for weight loss is to decrease calories in diet and increase activity Assessment & Plan (04/07/2024 11:50 AM CDT): Plan for weight loss is to decrease calories in diet and increase activity Assessment & Plan (12/31/2023 12:46 PM CDT): Losing weight on ozempic and through chemo he was cautioned by oncology to monitor weight loss and try to not lose too much weight too fast Assessment & Plan (08/31/2023 9:37 AM CALENDERING MACHINE OPERATOR): Plan for weight loss is to decrease calories in diet and increase activity Assessment & Plan (01/13/2023 3:03 PM CDT): Plan for weight loss is to decrease calories in diet and increase activity Assessment & Plan (08/05/2022 3:19 PM CALENDERING MACHINE OPERATOR): Plan for weight loss is to decrease calories in diet and increase activity Hypertension associated with diabetes 08/05/2022 Assessment & Plan (10/02/2024 9:38 AM CALENDERING MACHINE OPERATOR): B/p goal <140/90 Today - 129/87 Continue - amlodipine, benazepril, metoprolol. Chronic stable condition. Assessment & Plan (04/07/2024 11:48 AM CDT): B/p goal <140/90 Today - 124/68 Continue - dyazide, amlodipine, benazepril, metoprolol Chronic stable condition Assessment & Plan (12/31/2023 12:46 PM CDT): B/p goal <140/90 Today - 121/79 Continue - dyazide, metoprolol, amlodipine, benazepril Chronic stable condition Assessment & Plan (08/31/2023 9:37 AM CALENDERING MACHINE OPERATOR): B/p goal <140/90 Today - 124/81 Continue - metoprolol, amlodipine, benazepril Chronic stable condition Assessment & Plan (01/13/2023 3:03 PM CDT): B/p goal <140/90 Today - 131/86 Continue - metoprolol, dyazide, amlodipin, benazepril Chronic stable condition Assessment & Plan (09/15/2022 4:22 PM CALENDERING MACHINE OPERATOR): B/p goal <140/90 Today - 135/88 Continue - dyazide, amlodipine, benazepril, metoprolol Chronic stable condition Assessment & Plan (08/05/2022 3:19 PM CALENDERING MACHINE OPERATOR): B/p goal <140/90 Today - 136/92 Continue - metoprolol, amlodipine, benazepril, dyazide Chronic stable condition Type 2 diabetes mellitus without complication Assessment & Plan (10/02/2024 9:39 AM CALENDERING MACHINE OPERATOR): A1c in July 7.1. Continue Jardiance, Ozempic, and diet to control diabetes. Condition stable. Assessment & Plan (04/07/2024 11:48 AM CDT): A1C 7.8 - increased possibly due to chemotherapy - continue current diet and metformin will continue to monitor Assessment & Plan (12/31/2023 12:45 PM CDT): A1C - 6.0 Condition stable - continue ozempic Assessment & Plan (08/31/2023 9:36 AM CALENDERING MACHINE OPERATOR): A1c increased to 7.6 Increase ozempic to 2mg weekly Decrease sugars in diet and increase activity Assessment & Plan (01/13/2023 3:02 PM CDT): A1c increased to 7.4 Counseled on dietary changes Continue ozempic and metformin Condition worsening Assessment & Plan (09/15/2022 4:21 PM CALENDERING MACHINE OPERATOR): Chronic stable condition Continue metformin and ozempic Assessment & Plan (08/05/2022 3:20 PM CALENDERING MACHINE OPERATOR): Continue ozempic, metformin Diabetes stable Other acute kidney failure 10/04/2016 Hyperlipidemia associated with type 2 diabetes m diamond 10/04/2016 Overview (12/31/2023): Converted unresolved ICD9, potential mismatch. Assessment & Plan (10/02/2024 9:39 AM CALENDERING MACHINE OPERATOR): Continue statin. Cholesterol stable. Assessment & Plan (04/07/2024 11:50 AM CDT): Continue statin Cholesterol stable Essential (primary) hypertension 10/04/2016 Encounters Date Type Department Care Team Description 10/02/2024 7:45 AM CALENDERING MACHINE OPERATOR Office Visit [facility] at [address] [address] John Paul Antunez NP Type 2 diabetes mellitus without complication, without long-term current use of insulin (HCC) (Primary Dx); Hypertension associated with diabetes (HCC); Hyperlipidemia associated with type 2 diabetes mellitus (HCC); Class 2 severe obesity due to excess calories with serious comorbidity and body mass index (BMI) of 35.0 to 35.9 in adult (HCC) 09/08/2024 Orders Only [facility] at [address] [address] John Paul Antunez NP from Last 3 Months Immunizations Immunization Administration Dates Next Due Influenza, Unspecified 10/02/2024,2024(Deferred: Patient Refused),05/27/2023(Deferred: Patient Refused),08/05/2022(Deferred: Patient Refused),04/23/2021(Deferred: Patient Refused) Surgical History Surgery Date Site/Laterality Comments PORTACATH PLACEMENT 11/11/2023 [facility] Medical History Medical History Date Comments Diabetes mellitus (HCC) Hypertension Cancer (HCC) liver Rectal cancer (HCC) Family History Medical History Relation Name Comments Heart attack Father Dad Hypertension Father Dad Alcohol abuse Mother Mom Relation Name Status Comments Father Dad Mother Mom Social History Tobacco Use Types Packs/Day Years Used Date Smoking Tobacco: Never Cigarettes Smokeless Tobacco: Never Tobacco Cessation:Counseling Given: Not Answered AUDIT-C Answer Date Recorded Q1: How often do you have a drink containing alcohol? Never 12/14/2023 Q2: How many drinks containi ng alcohol do you have on a typical day when you are drinking? Patient does not drink Q3: How often do you have si x or more drinks on one occasion? Never 12/14/2023 PHQ-2 Answer Date Recorded PHQ-2 Total Score (If total score is 3 or more points, staff should administer the PHQ-9) 0 12/31/2023 Sex and Gender Information Value Date Recorded Sex Assigned at Not on file Legal Sex Male 4:58 PM CDT Gender Identity Not on file Sexual Orientation Not on file Obstetrics History Last Filed Vital Signs Vital Sign Reading Time Taken Comments Blood Pressure 129/87 10/02/2024 7:05 AM CALENDERING MACHINE OPERATOR Pulse 81 10/02/2024 7:05 AM CALENDERING MACHINE OPERATOR Temperature 36.2 C (97.2 F) 08/05/2022 1:20 PM CALENDERING MACHINE OPERATOR Respiratory Rate - - Oxygen Saturation 10% 12/14/2023 2:11 PM CDT Inhaled Oxygen Concentration - - Weight 112.8 kg (248 lb 9.6 oz) 04/07/2024 7:49 AM CDT Height 177.8 cm (5' 10 ) 10/02/2024 7:05 AM CALENDERING MACHINE OPERATOR Body Mass Index 35.67 04/07/2024 7:49 AM CDT Plan of Treatment Health Maintenance Due Date Last Done Comments Hepatitis C Screening 1974 Prostate Cancer Screening-PSA 1974 Dilated Eye Exam 1974 Hepatitis B Screening 1992 Regular Well Visit/Exam 18-64 1992 Pneumococcal vaccine <65 (1 of 2 - PCV) 1993 Zoster Vaccine (1 of 2) 1993 Albumin Creatinine Ratio, Urine 08/28/2024 4, 08/05/2022 Lipid Panel 08/28/2024 08/28/2023, 08/05/2022 eGFR 08/28/2024 08/28/2023, 08/05/2022 Hemoglobin A1C 10/08/2024 04/07/2024, 12/21, 08/28/2023, Additional history exists Depression Screening 12/30/2024 12/31/2023, 01/13/2023, 08/05/2022 Foot Exam 04/07/2025 04/07/2024, 01/13/2023 Colon Cancer Screening-Colonoscopy 11/07/2033 11/08/2023 Influenza Vaccine Completed 10/02/2024 DTaP/Tdap/Td Vaccine Discontinued Procedures Procedure Name Priority Date/Time Associated Diagnosis Comments POCT HEMOGLOBIN A1C Routine 04/07/2024 1 0:16 AM CDT Type 2 diabetes mellitus without complication, without long-term current use of insulin (HCC) COMPREHENSIVE METABOLIC PANEL Routine 08/28/2023 8:02 AM CALENDERING MACHINE OPERATOR Hypertension associated with diabetes (HCC) Type 2 diabetes mellitus without complication, without long-term current use of insulin (HCC) LIPID PANEL Routine 08/28/2023 8:02 AM CALENDERING MACHINE OPERATOR Hypertension associated with diabetes (HCC) Type 2 diabetes mellitus without complication, without long-term current use of insulin (HCC) ALBUMIN CREATININE RATIO, URINE Routine 08/28/2023 8:02 AM CALENDERING MACHINE OPERATOR Hypertension associated with diabetes (HCC) Type 2 diabetes mellitus without complication, without long-term current use of insulin (HCC) from Last 3 Months or Most Recently Relevant to Health Maintenance Results * (ABNORMAL) POCT hemoglobin A1c (04/07/2024 10:16 AM CDT) Hemoglobin A1C, POC 7.8 4.0 - 5.6 % Blood 04/07/2024 10:1 6 AM CDT John Paul Antunez NP POINT OF CARE TEST ORDERABLES Final Result * (ABNORMAL) Albumin Creatinine Ratio, Urine (08/28/2023 8:02 AM CALENDERING MACHINE OPERATOR) Creatinine, ur 71 20 - 320 mg/dL [facility] Microalbumin, ur 82.3 See Note: mg/dL [facility] Comment: Reference Range: Reference Range Not established Verified by repeat analysis. Microalbumin/crea t ratio 1,159(H) <30 mcg/mg creat [facility] Comment: The ADA defines abnormalities in albumin excretion as follows: Albuminuria Category Result (mcg/mg creatinine) Normal to Mildly increased <30 Moderately increased 30-299 Severely increased > OR = 300 The ADA recommends that at least two of three specimens collected within a 3-6 month period be abnormal before considering a patient to be within a diagnostic category. Urine 08/28/2023 8:02 AM CALENDERING MACHINE OPERATOR 08/28/2023 8:03 AM CALENDERING MACHINE OPERATOR Narrative [facility] - 08/29/2023 2:07 PM CALENDERING MACHINE OPERATOR FASTING:YES FASTING: YES John Paul Antunez NP LAB URINE ORDERABLES Final Re sult [facility] [address] [place] [address] * (ABNORMAL) Lipid panel (08/28/2023 8:02 AM CALENDERING MACHINE OPERATOR) Pathologist [facility] Cholesterol 163 <200 mg/dL [facility] HDL 29(L) > OR = 40 mg/dL [facility] Triglycerides 409(H) <150 mg/dL [facility] Comment: If a non-fasting specimen was collected, consider repeat triglyceride testing on a fasting specimen if clinically indicated. Mouna et al. J. of Clin. Lipidol. 2015;9:129-169. LDL mg/dL (calc) [facility] Comment: LDL cholesterol not calculated. Triglyceride levels greater than 400 mg/dL invalidate calculated LDL results. Reference range: <100 Desirable range <100 mg/dL for primary prevention; <70 mg/dL for patients with CHD or diabetic patients with > or = 2 CHD risk factors. LDL-C is now calculated using the Jf calculation, which is a validated novel method providing better accuracy than the Friedewald equation in the estimation of LDL-C. Jesse YA et al. OLMAN. 2013;310(19): 7897-2717 (http://education.[employer]/faq/FQJ713) Chol/HDL ratio 5.6(H) <5.0 (calc) [facility] Non-HDL, (LDL+VLDL) 134(H) <130 mg/dL (calc) [facility] Comment: For patients with diabetes plus 1 major ASCVD risk factor, treating to a non-HDL-C goal of <100 mg/dL (LDL-C of <70 mg/dL) is considered a therapeutic option. Blood 08/28/2023 8:02 AM CALENDERING MACHINE OPERATOR 08/28/2023 8:03 AM CALENDERING MACHINE OPERATOR Narrative [facility] - 08/29/2023 2:07 PM CALENDERING MACHINE OPERATOR FASTING:YES FASTING: YES us John Paul Antunez EAR NOSE THROAT SURGEON LAB BLOOD ORDERABLES Final Re sult [facility] [address] [address] [place] [address] * (ABNORMAL) Comprehensive metabolic panel (08/28/2023 8:02 AM CALENDERING MACHINE OPERATOR) Pathologist [facility] Glucose 193(H) 65 - 99 mg/dL [facility] Comment: Fasting reference interval For someone without known diabetes, a glucose value >125 mg/dL indicates that they may have diabetes and this should be confirmed with a follow-up test. BUN 21 7 - 25 mg/dL [facility] Creatinine 0.86 0.60 - 1.29 mg/dL [facility] eGFR 107 > OR = 60 mL/min/1.7 3m2 [facility] BUN/creat ratio SEE NOTE: 6 - 22 (calc) [facility] Comment: Not Reported: BUN and Creatinine are within reference range. Sodium 136 135 - 146 mmol/L [facility] Potassium, pl 4.2 3.5 - 5.3 mmol/L [facility] Chloride 99 98 - 110 mmol/L [facility] CO2 28 20 - 32 mmol/L [facility] Calcium 8.6 8.6 - 10.3 mg/dL [facility] Protein, sr 6.9 6.1 - 8.1 g/dL [facility] Albumin 4.1 3.6 - 5.1 g/dL [facility] GLOBULIN 2.8 1.9 - 3.7 g/dL (calc) [facility] Alb/glob ratio 1.5 1.0 - 2.5 (calc) [facility] Bilirubin, total 0.5 0.2 - 1.2 mg/dL [facility] Alk phos 69 36 - 130 U/L [facility] AST 11 10 - 40 U/L [facility] ALT (SGPT) 13 9 - 46 U/L [facility] Blood 08/28/2023 8:02 AM CALENDERING MACHINE OPERATOR 08/28/2023 8:03 AM CALENDERING MACHINE OPERATOR Narrative [facility] - 08/29/2023 2:07 PM CALENDERING MACHINE OPERATOR FASTING:YES FASTING: YES us John Paul Antunez EAR NOSE THROAT SURGEON LAB BLOOD ORDERABLES Final Re sult [facility] [address] [place] [address] from Last 3 Months or Most Recently Relevant to Health Maintenance Insurance ANTHEM ACCESS ANTHEM ACCESS Care Teams Locomotive Engineer Diesel Relationship Specialty [place] [address] [place] [address] PCP - General Family Medicine 08/05/22 Miguel Serrano MD [address] [place] [address] Referring Physician Gastroenterology 11/16/23 Lane Montano MD [address] [facility] [id number] [place] [address] Surgeon Colon and Rectal Surgery 12/15/23 Olaf Nath MD [address] [facility] [address] [place] [address] Turkey Egg Gatherer Hematology 12/15/23 Chidi Simons MD [address] [facility] [place] [address] Radiation Oncologist Radiation Oncology 12/15/23
--- OUTSIDE RECORDS SUMMARY | 2024-10-25 08:39 | XMS_ITS | Clinical Summary ---
Author Organization [facility] Hermelinda Zavala Address [address] [place] [address] Care Team Providers Care Tower Operator Name Role Phone Unavailable Primary Care Provider Unavailabl e Allergies No known active allergies Medications atorvastatin (LIPITOR) 10 mg tablet Take 10 mg by mouth daily. 4 025 Active amLODIPine-benaz epril (LOTREL) 10-40 mg capsule Take 1 Capsule by mouth daily. 3 Active metoprolol tartrate (LOPRESSOR) 50 mg tablet Take 50 mg by mouth 2 times daily. 3 Active semaglutide (OZEMPIC) 2 mg/dose (8 mg/3 mL) Pen Injector Inject 2 mg by subcutaneous injection every 7 days. 4 Active triamterene-hydr oCHLOROthiazide (MAXZIDE 25) 37.5-25 mg tablet Take by mouth daily. 3 Active capecitabine (XELODA) 500 mg tablet TAKE 3 TABLETS (1500 MG) TWICE DAILY WITH MEALS ON DAYS OF RADIAITON ONLY (WEDNESDAY THROUGH WEDNESDAY) 42 Tablet 4 Active silver sulfADIAZINE (SILVADENE) 1 % Cream Apply to affected area daily. 400 Gram 2 4 Active zolpidem (AMBIEN) 5 mg tabletIndication s:Insomnia, unspecified type Take 1 Tablet (5 mg) by mouth nightly as needed for Insomnia. 30 Tablet 1 4 Active metroNIDAZOLE (FLAGYL) 500 mg tablet Take one tablet by mouth 1:00 p.m., 2:00 p.m. and 10:00 p.m. day prior to surgery 3 Tablet 4 Active neomycin (MYCIFRADIN) 500 mg tablet Take 2 (two) tablets at 1 p.m., 2 p.m., 10 p.m. on day prior to surgery 6 Tablet 4 Active lactulose (ENULOSE) 10 gram/15 mL oral solution TAKE 30 ML BY MOUTH 2 TIMES DAILY NEEDED. 5400 mL 1 5 Active pregabalin (Lyrica) 150 mg Capsule Take 1 Capsule (150 mg) by mouth every 12 hours. 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 5 Active Active Problems Problem Noted Date Diagnosed Date Rectal cancer metastasized to liver 06/24/2024 Class 2 severe obesity due t o excess calories with serious comorbidity and body mass index (BMI) of 35.0 to 35.9 in adult 08/05/2022 Essential (primary) hypertension 10/04/2016 Hyperlipidemia associated with type 2 diabetes martina fields 10/04/2016 Overview (06/26/2024): Converted unresolved ICD9, potential mismatch. 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 [address] [place] [phone] Olaf Nath MD 09/27/2024 8:45 AM ECONOMICS ANALYST Office Visit 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) 09/22/2024 Orders Only [facility] - [place] [address] [place] [phone] Olaf Nath MD 09/21/2024 Orders Only [facility] - [place] [address] [place] [phone] Olaf Nath MD 09/21/2024 Telephone [facility] - [place] [address] [place] [phone] Olaf Nath MD Procrit Injections 09/20/2024 Orders Only [facility] - [place] [address] [place] [phone] Olaf Nath MD 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) (Primary Dx) 09/20/2024 Orders Only [facility] - [place] [address] [place] [phone] Olaf Nath MD Chronic anemia (Primary Dx) 09/19/2024 External Device Data STL ABSTRACTION Provider, Abstract 09/13/2024 External Device Data STL ABSTRACTION Provider, Abstract 09/13/2024 External Device Data STL ABSTRACTION Provider, Abstract 09/12/2024 Refill [facility] - [place] [address] [place] [phone] Olaf Nath MD 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) (Primary Dx); Anemia due to chemotherapy 09/06/2024 External Device Data STL ABSTRACTION Provider, Abstract 09/06/2024 Chart Note [facility] [id number] [place] [address] Monae Gil MD 09/05/2024 2:28 PM ECONOMICS ANALYST Anesthesia Event [facility] [address] [place] [address] Shruthi Pacheco MD 09/05/2024 10:50 AM ECONOMICS ANALYST - 09/05/2024 11:59 PM ECONOMICS ANALYST Hospital Encounter [facility] [address] [place] [address] Monae Gil MD [address], [address] [facility], [facility] Shruthi Butler MD Discharge Disposition: Home or Self Care 09/05/2024 10:04 AM ECONOMICS ANALYST - 09/05/2024 5:15 PM ECONOMICS ANALYST Hospital Encounter [facility] [address] [place] [address] Isabella Campbell MD [address], [address] [facility], [facility] Shruthi Butler MD Rectal cancer metastasized to liver (CMS/HCC) Discharge Disposition: Home or Self Care 08/30/2024 Prep for Surgery [facility] [address] [place] [address] Isabella Campbell MD Rectal cancer metastasized to liver (CMS/HCC) (Primary Dx) 08/29/2024 1:00 PM ECONOMICS ANALYST Video Visit [facility] [address] [place] [address] Isabella Campbell MD Rectal cancer metastasized to liver (CMS/HCC) (Primary Dx) 08/29/2024 Orders Only [facility] [address] [place] [address] Isabella Campbell MD Rectal cancer metastasized to liver (CMS/HCC) (Primary Dx) 08/28/2024 Orders Only 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) 08/25/2024 Refill [facility] [address] [place] [address] Olaf Nath MD 08/24/2024 8:25 AM ECONOMICS ANALYST Office Visit [facility] [address] [place] [address] Roderick Perry MD Rectal cancer metastasized to liver (CMS/HCC) (Primary Dx) 08/24/2024 Telephone [facility] [address] [place] [address] Isabella Campbell MD Appointment Verification 08/22/2024 Chart Note [facility] [id number] [place] [phone] Sherie Santos RN 08/21/2024 9:00 AM ECONOMICS ANALYST Office Visit [facility] [id number] [place] [address] Monae Gil MD Rectal cancer (CMS/HCC) (Primary Dx); Type 2 diabetes mellitus without complication, without long-term current use of insulin (CMS/HCC) 08/14/2024 Refill [facility] [address] [place] [address] Jhon Nguyễn MD Insomnia, unspecified type 08/14/2024 Orders Only 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 [address] [place] [address] Olaf Nath MD Insomnia, unspecified type 08/10/2024 Orders Only [facility] [address] [place] [address] Chidi Simons MD 08/10/2024 Orders Only [facility] [address] [place] [address] Chidi Simons MD 08/01/2024 Orders Only [facility] [id number] [facility] [address] [place] [address] Monae Gil MD Rectal cancer (CMS/HCC) (Primary Dx) 07/31/2024 Telephone [facility] [address] [place] [address] Reji Quinteros MD Referral 07/31/2024 Chart Note [facility] [id number] [place] [address] Sherie Santos RN 07/31/2024 Orders Only [facility] [id number] [facility] [address] [place] [address] Monae Gil MD Rectal cancer (CMS/HCC) (Primary Dx) 07/31/2024 Orders Only 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 [address] [place] [address] Olaf Nath MD from Last 3 Months Family History Medical History Relation Name Comments Heart Disease Father Relation Name Status Comments Daughter Alive Father Mother Sister 1 Alive Sister 2 Alive Son Alive Social History Tobacco Use Types Packs/Day Years Used Date Smoking Tobacco: Never Smokeless Tobacco: Never Tobacco Cessation:Counseling Given: Not Answered Alcohol Use Standard Drinks/Week Comments Yes 0 (1 standard drink = 0.6 oz pur e alcohol) rarely Sex and Gender Information Value Date Recorded Sex Assigned at Not on file Legal Sex Male 3:22 PM CDT Gender Identity Not on file Sexual Orientation Not on file Last Filed Vital Signs Vital Sign Reading Time Taken Comments Blood Pressure 110/69 10/25/2024 8:35 AM ECONOMICS ANALYST Pulse 94 10/25/2024 8:35 AM ECONOMICS ANALYST Temperature 36.7 C (98.1 F) 10/25/2024 8:35 AM ECONOMICS ANALYST Respiratory Rate 15 10/25/2024 8:35 AM ECONOMICS ANALYST Oxygen Saturation 93% 10/25/2024 8:35 AM ECONOMICS ANALYST Inhaled Oxygen Concentration - - Weight 110.1 kg (242 lb 12.8 oz) 10/25/2024 8:35 AM ECONOMICS ANALYST Height 175.3 cm (5' 9 ) 09/05/2024 10:3 1 AM ECONOMICS ANALYST Body Mass Index 35.86 09/05/2024 10:31 AM ECONOMICS ANALYST Plan of Treatment Health Maintenance Due Date Last Done Comments DIABETES ANNUAL RETINAL EXAM 1992 DIABETES MICROALBUMIN ANNUAL SCREEN 1992 LDL CHOLESTEROL ANNUAL 1992 DTAP/TDAP/TD VACCINES (1 - Tdap) 1993 HEPATITIS B VACCINES (1 of 3 - 19+ 3-dose series) 1993 ZOSTER VACCINE (1 of 2) 1993 INFLUENZA VACCINE (#1) 2024 Preventative Visit- Commercial 08/23/2024 DIABETES HBA1C Q 6 MONTHS 02/19/20252023, 04/07/2024, 12/31/2023, Additional history exists DIABETES ANNUAL FOOT EXAM 04/07/2025 04/07/2024 Procedures Procedure Name Priority Date/Time Associated Diagnosis Comments IRON PANEL Routine 09/20/2024 4:31 PM ECONOMICS ANALYST BASIC METABOLIC PANEL Routine 09/20/2024 9:50 AM ECONOMICS ANALYST COMPREHENSIVE METABOLIC PANEL Routine 09/20/2024 9:46 AM ECONOMICS ANALYST VITAMIN B12 LEVEL Routine 09/20/2024 9:1 0 AM ECONOMICS ANALYST TEMPUS XF Routine 09/15/2024 3:31 PM ECONOMICS ANALYST 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) [facility] XT DNA AND RNA Routine 09/06/2024 2:16 PM ECONOMICS ANALYST 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) [facility] XT NORMAL BLOOD Routine 09/06/2024 2:16 PM ECONOMICS ANALYST 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) [facility] XT DNA AND RNA SOLID TUMOR Routine 09/06/2024 2:16 PM ECONOMICS ANALYST 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) CBC WITH DIFFERENTIAL Routine 09/06/2024 11:46 AM ECONOMICS ANALYST MRI ABDOMEN W WO CONTRAST Stat 09/05/2024 3:54 PM ECONOMICS ANALYST Rectal cancer metastasized to liver (CMS/HCC) MRI PELVIS WO CONTRAST Routine 09/05/2024 3:45 PM ECONOMICS ANALYST Rectal cancer (CMS/HCC) DE ANES INSERT ENDOTRACHEAL AIRWAY Routine 09/05/2024 2:33 PM ECONOMICS ANALYST BASIC METABOLIC PANEL Stat 09/05/2024 10:43 AM ECONOMICS ANALYST HEMOGLOBIN A1C Routine 08/21/2024 10:46 AM ECONOMICS ANALYST Type 2 diabetes mellitus without complication, without long-term current use of insulin (CMS/HCC) from Last 3 Months Results * IRON PANEL (09/20/2024 4:31 PM ECONOMICS ANALYST) Blood us Olaf Nath MD CHEMISTRY ORDERABLES Final Resu lt * BASIC METABOLIC PANEL (09/20/2024 9:50 AM ECONOMICS ANALYST) Only the most recent of2 resultswithin the time period is included. Blood us Olaf Nath MD CHEMISTRY ORDERABLES Final Resu lt * COMPREHENSIVE METABOLIC PANEL (09/20/2024 9:46 AM ECONOMICS ANALYST) Blood us Olaf Nath MD CHEMISTRY ORDERABLES Final Resu lt * VITAMIN B12 LEVEL (09/20/2024 9:10 AM ECONOMICS ANALYST) Blood us Olaf Nath MD CHEMISTRY ORDERABLES Final Resu lt * [facility]PUS XF (09/15/2024 3:31 PM ECONOMICS ANALYST) Reason for Study To identify mutations relevant to patient's cancer. 09/15/2024 3:31 PM ECONOMICS ANALYST [facility] Genetic Diseases Assessed Cancer 09/15/2024 3:31 PM ECONOMICS ANALYST [facility] Description of Ranges of DNA Sequences Examined 105 gene liquid biopsy 09/15/2024 3:31 PM ECONOMICS ANALYST [facility] Overall Interpretation positive 09/15/2024 3:31 PM ECONOMICS ANALYST [facility] [email or web address] 09/15/2024 3:31 PM ECONOMICS ANALYST [facility] Comment:[facility] link Low Coverage Regions [email or web address] 09/15/2024 3:31 PM ECONOMICS ANALYST [facility] Therapy Count 14 09/15/2024 3:31 PM ECONOMICS ANALYST [facility]: Potential Therapy 1 Gene: N/A Variant: ERBB2 (HER2) Copy number gain; no detection of pathogenic GOF variants in KRAS, NRAS or BRAF Match Type: wildType Match Type Description: ERBB2 (HER2) Copy number gain; no detection of pathogenic GOF variants in KRAS, NRAS or BRAF Agent: Tucatinib + Trastuzumab Drug Class: Combination (HER2 Inhibitor + Anti-HER2 MAb) Tissue: Colorectal Cancer Association: Response Evidence Status: Consensus Evidence ID: NCCN NCCN Associated Evidence: Consensus, Colorectal Cancer MSK Associated Evidence: MSK OncoKB, Level 1 Label: FDA On Label FDA Approved?: Yes On label?: Yes 09/15/2024 3:31 PM ECONOMICS ANALYST [facility]: Potential Therapy 2 Gene: 3430^ERBB2^HGNC Variant: ERBB2 Copy number gain Match Type: cnv Match Type Description: ERBB2 Copy number gain Agent: Ado-Trastuzumab Emtansine Drug Class: Anti-HER2 MAb Tissue: Breast Cancer Association: Response Evidence Status: Consensus Evidence ID: NCCN Label: FDA Off Label FDA Approved?: Yes On label?: No 09/15/2024 3:31 PM ECONOMICS ANALYST [facility]: Potential Therapy 3 Gene: 3430^ERBB2^HGNC Variant: ERBB2 Copy number gain Match Type: cnv Match Type Description: ERBB2 Copy number gain Agent: Margetuximab-cmkb Drug Class: Anti-HER2 MAb Tissue: Breast Cancer Association: Response Evidence Status: Consensus Evidence ID: NCCN Label: FDA Off Label FDA Approved?: Yes On label?: No 09/15/2024 3:31 PM ECONOMICS ANALYST [facility]: Potential Therapy 4 Gene: 3430^ERBB2^HGNC Variant: ERBB2 Copy number gain Match Type: cnv Match Type Description: ERBB2 Copy number gain Agent: Trastuzumab Drug Class: Anti-HER2 MAb Tissue: Gastroesophageal Junction Adenocarcinoma Association: Response Evidence Status: Consensus Evidence ID: NCCN Label: FDA Off Label FDA Approved?: Yes On label?: No 09/15/2024 3:31 PM ECONOMICS ANALYST [facility]: Potential Therapy 5 Gene: 3430^ERBB2^HGNC Variant: ERBB2 Copy number gain Match Type: cnv Match Type Description: ERBB2 Copy number gain Agent: Capecitabine + Neratinib Drug Class: Combination (Pyrimidine Analog + Cadet-HER TKI) Tissue: Breast Cancer Association: Response Evidence Status: Consensus Evidence ID: NCCN Label: FDA Off Label FDA Approved?: Yes On label?: No 09/15/2024 3:31 PM ECONOMICS ANALYST [facility]: Potential Therapy 6 Gene: 3430^ERBB2^HGNC Variant: ERBB2 Copy number gain Match Type: cnv Match Type Description: ERBB2 Copy number gain Agent: Capecitabine + Trastuzumab + Tucatinib Drug Class: Combination (Pyrimidine Analog + Anti-HER2 MAb + HER2 Inhibitor) Tissue: Breast Cancer Association: Response Evidence Status: Consensus Evidence ID: NCCN Label: FDA Off Label FDA Approved?: Yes On label?: No 09/15/2024 3:31 PM ECONOMICS ANALYST [facility]: Potential Therapy 7 Gene: 3430^ERBB2^HGNC Variant: ERBB2 Copy number gain Match Type: cnv Match Type Description: ERBB2 Copy number gain Agent: Lapatinib + Capecitabine Drug Class: Combination (Cadet-HER TKI + Pyrimidine Analog) Tissue: Breast Cancer Association: Response Evidence Status: Consensus Evidence ID: NCCN Label: FDA Off Label FDA Approved?: Yes On label?: No 09/15/2024 3:31 PM ECONOMICS ANALYST [facility]: Potential Therapy 8 Gene: 3430^ERBB2^HGNC Variant: ERBB2 Copy number gain Match Type: cnv Match Type Description: ERBB2 Copy number gain Agent: Neratinib Drug Class: Cadet-HER TKI Tissue: Breast Cancer Association: Response Evidence Status: Consensus Evidence ID: NCCN Label: FDA Off Label FDA Approved?: Yes On label?: No 09/15/2024 3:31 PM ECONOMICS ANALYST [facility]: Potential Therapy 9 Gene: 3430^ERBB2^HGNC Variant: ERBB2 Copy number gain Match Type: cnv Match Type Description: ERBB2 Copy number gain Agent: Lapatinib Drug Class: Cadet-HER TKI Tissue: Gastric Cancer Association: Response Evidence Status: Clinical research Evidence ID: [id number] Evidence URL: http://www.ncbi.nlm .nih.gov/pubmed/248 39887 Evidence Title: Lapatinib plus paclitaxel versus paclitaxel alone in the second-line treatment of HER2-amplified advanced gastric cancer in populations: TyTAN--a randomized, phase III study - PubMed Label: FDA Off Label FDA Approved?: Yes On label?: No 09/15/2024 3:31 PM ECONOMICS ANALYST [facility]: Potential Therapy 10 Gene: 3430^ERBB2^HGNC Variant: ERBB2 Copy number gain Match Type: cnv Match Type Description: ERBB2 Copy number gain Agent: Trastuzumab + Paclitaxel + Carboplatin Drug Class: Combination (Anti-HER2 MAb + Anti-Tubulin Agent + [place] Agent) Tissue: Uterine Serous Carcinoma Association: Response Evidence Status: Consensus Evidence ID: NCCN Label: FDA Off Label FDA Approved?: Yes On label?: No 09/15/2024 3:31 PM ECONOMICS ANALYST [facility]: Potential Therapy 11 Gene: 3430^ERBB2^HGNC Variant: ERBB2 Copy number gain Match Type: cnv Match Type Description: ERBB2 Copy number gain Agent: Trastuzumab + Pembrolizumab Drug Class: Combination (Anti-HER2 MAb + Anti-PD-1 MAb) Tissue: Gastric Adenocarcinoma Association: Response Evidence Status: Consensus Evidence ID: NCCN Label: FDA Off Label FDA Approved?: Yes On label?: No 09/15/2024 3:31 PM ECONOMICS ANALYST [facility]: Potential Therapy 12 Gene: 3430^ERBB2^HGNC Variant: ERBB2 Copy number gain Match Type: cnv Match Type Description: ERBB2 Copy number gain Agent: Trastuzumab Deruxtecan Drug Class: MAb-Drug Conjugate Tissue: Gastric Adenocarcinoma Association: Response Evidence Status: Consensus Evidence ID: NCCN Label: FDA Off Label FDA Approved?: Yes On label?: No 09/15/2024 3:31 PM ECONOMICS ANALYST [facility]: Potential Therapy 13 Gene: N/A Variant: ERBB2 (HER2) Copy number gain; no detection of pathogenic GOF variants in KRAS, NRAS or BRAF Match Type: wildType Match Type Description: ERBB2 (HER2) Copy number gain; no detection of pathogenic GOF variants in KRAS, NRAS or BRAF Agent: Trastuzumab + Lapatinib Drug Class: Combination (Anti-HER2 MAb + Cadet-HER TKI) Tissue: Colorectal Cancer Association: Response Evidence Status: Consensus Evidence ID: NCCN NCCN Associated Evidence: Consensus, Colorectal Cancer MSK Associated Evidence: MSK OncoKB, Level 2 Label: FDA Off Label FDA Approved?: Yes On label?: No 09/15/2024 3:31 PM ECONOMICS ANALYST [facility]: Potential Therapy 14 Gene: N/A Variant: ERBB2 (HER2) Copy number gain; no detection of pathogenic GOF variants in KRAS, NRAS or BRAF Match Type: wildType Match Type Description: ERBB2 (HER2) Copy number gain; no detection of pathogenic GOF variants in KRAS, NRAS or BRAF Agent: Trastuzumab + Pertuzumab Drug Class: Combination (Anti-HER2 MAbs) Tissue: Colorectal Cancer Association: Response Evidence Status: Consensus Evidence ID: NCCN NCCN Associated Evidence: Consensus, Colorectal Cancer MSK Associated Evidence: MSK OncoKB, Level 2 Label: FDA Off Label FDA Approved?: Yes On label?: No 09/15/2024 3:31 PM ECONOMICS ANALYST [facility] Trial Count 3 09/15/2024 3:31 PM ECONOMICS ANALYST [facility]: Clinical Trial Match 1 Clinical Trial NCT ID: [id number] Clinical Trial Title: Testing the Combination of Two Anti-cancer Drugs, [id number] and [id number], for The Treatment of Patients With Advanced Solid Tumors Expressing the HER2 Protein or Gene, The DASH Trial Clinical Trial URL: https://clinicaltri als.gov/ct2/show/[place] [email or web address] Clinical Phase: Phase 1 Clinical Trial Matches: ERBB2 (HER2) amplification Clinical Trial Distance and Location: [address] [place], [place] 09/15/2024 3:31 PM ECONOMICS ANALYST [facility]: Clinical Trial Match 2 Clinical Trial NCT ID: [id number] Clinical Trial Title: A Study of [id number] in Patients With Advanced Solid Tumors and Lymphomas Clinical Trial URL: https://clinicaltri als.gov/ct2/show/NC [email or web address] Clinical Phase: Phase 1/Phase 2 Clinical Trial Matches: [id number]* mutation Clinical Trial Distance and Location: [address] [place], [place] 09/15/2024 3:31 PM ECONOMICS ANALYST [facility] Tempus: Clinical Trial Match 3 Clinical Trial NCT ID: [id number] Clinical Trial Title: Study of ATRN-119 in Patients with Advanced Solid Tumors Clinical Trial URL: https://clinicaltri als.gov/ct2/show/NC [email or web address] Clinical Phase: Phase 1/Phase 2 Clinical Trial Matches: TP53 p.W53* mutation, ARID1A p.S1085* mutation Clinical Trial Distance and Location: [address] [place], [place] 09/15/2024 3:31 PM ECONOMICS ANALYST [facility] Tumor Mutational [place] 4.3 m/MB 09/15/2024 3:31 PM ECONOMICS ANALYST [facility] Microsatellite Instability Note MSI-High not detected 09/15/2024 3:31 PM ECONOMICS ANALYST [facility] Blood specimen (specimen) 09/08/2024 10:45 PM ECONOMICS ANALYST Narrative This result has genomic variants that were not included in this document. us Olaf Nath MD MOLECULAR ORDERABLES Final Resu lt Performing Organization Address [facility] Co de Phone Number [facility] [address] [facility], [address] [place] [id number], [facility] [address] [facility], [address] [phone] * [facility] NORMAL BLOOD (09/06/2024 2:16 PM ECONOMICS ANALYST) Pathologist [facility] [place] [facility] 09/06/2024 11:00 PM ECONOMICS ANALYST [facility] Comment:See NGS Report for R esults. Blood specimen (specimen) 09/06/2024 2:16 PM ECONOMICS ANALYST 09/06/2024 2:18 PM ECONOMICS ANALYST us Olaf Nath MD MOLECULAR ORDERABLES Final Resu lt Performing Organization Address [facility] Co de Phone Number [facility] [address] [facility], [address] [place] [id number], [place] [phone] [facility] [address] [facility], [address] [place] [phone] * [facility] DNA AND RNA SOLID TUMOR (09/06/2024 2:16 PM ECONOMICS ANALYST) Pathologist [facility] [place] Reason for Study To identify somatic and germline mutations relevant to patient's cancer. 09/23/2024 3:08 PM ECONOMICS ANALYST [facility] Genetic Diseases Assessed Cancer 09/23/2024 3:08 PM ECONOMICS ANALYST [facility] Description of Ranges of DNA Sequences Examined 648 gene panel 09/23/2024 3:08 PM ECONOMICS ANALYST [facility] Overall Interpretation positive 09/23/2024 3:08 PM ECONOMICS ANALYST [facility] MSI Stable 09/23/2024 3:08 PM ECONOMICS ANALYST [facility] TMB 3.7 m/MB 09/23/2024 3:08 PM ECONOMICS ANALYST [facility] Portal [id number] 09/23/2024 3:08 PM ECONOMICS ANALYST [facility] Comment:[facility] link Pertinent Negatives KRAS, BRAF, NRAS 09/23/2024 3:08 PM ECONOMICS ANALYST [facility] Low Coverage Regions EPHB2, PTPN22 09/23/2024 3:08 PM ECONOMICS ANALYST [facility] Therapy Count 15 09/23/2024 3:08 PM ECONOMICS ANALYST [facility]: Potential Therapy 1 Gene: N/A Variant: Wild type: KRAS, NRAS Match Type: wildType Match Type Description: Wild type: KRAS, NRAS Agent: Cetuximab or Panitumumab Drug Class: Anti-EGFR MAb Tissue: Colorectal Cancer Association: Response Evidence Status: Consensus Evidence ID: NCCN NCCN Associated Evidence: Consensus, Colorectal Cancer MSK Associated Evidence: MSK OncoKB, Level 1 Label: FDA On Label FDA Approved?: Yes On label?: Yes 09/23/2024 3:08 PM ECONOMICS ANALYST [facility]: Potential Therapy 2 Gene: N/A Variant: ERBB2 (HER2) Copy number gain; no detection of pathogenic GOF variants in KRAS, NRAS or BRAF Match Type: wildType Match Type Description: ERBB2 (HER2) Copy number gain; no detection of pathogenic GOF variants in KRAS, NRAS or BRAF Agent: Tucatinib + Trastuzumab Drug Class: Combination (HER2 Inhibitor + Anti-HER2 MAb) Tissue: Colorectal Cancer Association: Response Evidence Status: Consensus Evidence ID: NCCN NCCN Associated Evidence: Consensus, Colorectal Cancer MSK Associated Evidence: MSK OncoKB, Level 1 Label: FDA On Label FDA Approved?: Yes On label?: Yes 09/23/2024 3:08 PM ECONOMICS ANALYST [facility]: Potential Therapy 3 Gene: 3430^ERBB2^HGNC Variant: ERBB2 Copy number gain Match Type: cnv Match Type Description: ERBB2 Copy number gain Agent: Ado-Trastuzumab Emtansine Drug Class: Anti-HER2 MAb Tissue: Breast Cancer Association: Response Evidence Status: Consensus Evidence ID: NCCN Label: FDA Off Label FDA Approved?: Yes On label?: No 09/23/2024 3:08 PM ECONOMICS ANALYST [facility]: Potential Therapy 4 Gene: 3430^ERBB2^HGNC Variant: ERBB2 Copy number gain Match Type: cnv Match Type Description: ERBB2 Copy number gain Agent: Margetuximab-cmkb Drug Class: Anti-HER2 MAb Tissue: Breast Cancer Association: Response Evidence Status: Consensus Evidence ID: NCCN Label: FDA Off Label FDA Approved?: Yes On label?: No 09/23/2024 3:08 PM ECONOMICS ANALYST [facility]: Potential Therapy 5 Gene: 3430^ERBB2^HGNC Variant: ERBB2 Copy number gain Match Type: cnv Match Type Description: ERBB2 Copy number gain Agent: Trastuzumab Drug Class: Anti-HER2 MAb Tissue: Gastroesophageal Junction Adenocarcinoma Association: Response Evidence Status: Consensus Evidence ID: NCCN Label: FDA Off Label FDA Approved?: Yes On label?: No 09/23/2024 3:08 PM ECONOMICS ANALYST [facility]: Potential Therapy 6 Gene: 3430^ERBB2^HGNC Variant: ERBB2 Copy number gain Match Type: cnv Match Type Description: ERBB2 Copy number gain Agent: Capecitabine + Neratinib Drug Class: Combination (Pyrimidine Analog + Cadet-HER TKI) Tissue: Breast Cancer Association: Response Evidence Status: Consensus Evidence ID: NCCN Label: FDA Off Label FDA Approved?: Yes On label?: No 09/23/2024 3:08 PM ECONOMICS ANALYST [facility]: Potential Therapy 7 Gene: 3430^ERBB2^HGNC Variant: ERBB2 Copy number gain Match Type: cnv Match Type Description: ERBB2 Copy number gain Agent: Capecitabine + Trastuzumab + Tucatinib Drug Class: Combination (Pyrimidine Analog + Anti-HER2 MAb + HER2 Inhibitor) Tissue: Breast Cancer Association: Response Evidence Status: Consensus Evidence ID: NCCN Label: FDA Off Label FDA Approved?: Yes On label?: No 09/23/2024 3:08 PM ECONOMICS ANALYST [facility]: Potential Therapy 8 Gene: 3430^ERBB2^HGNC Variant: ERBB2 Copy number gain Match Type: cnv Match Type Description: ERBB2 Copy number gain Agent: Lapatinib + Capecitabine Drug Class: Combination (Cadet-HER TKI + Pyrimidine Analog) Tissue: Breast Cancer Association: Response Evidence Status: Consensus Evidence ID: NCCN Label: FDA Off Label FDA Approved?: Yes On label?: No 09/23/2024 3:08 PM ECONOMICS ANALYST [facility]: Potential Therapy 9 Gene: 3430^ERBB2^HGNC Variant: ERBB2 Copy number gain Match Type: cnv Match Type Description: ERBB2 Copy number gain Agent: Neratinib Drug Class: Cadet-HER TKI Tissue: Breast Cancer Association: Response Evidence Status: Consensus Evidence ID: NCCN Label: FDA Off Label FDA Approved?: Yes On label?: No 09/23/2024 3:08 PM ECONOMICS ANALYST [facility]: Potential Therapy 10 Gene: 3430^ERBB2^HGNC Variant: ERBB2 Copy number gain Match Type: cnv Match Type Description: ERBB2 Copy number gain Agent: Lapatinib Drug Class: Cadet-HER TKI Tissue: Gastric Cancer Association: Response Evidence Status: Clinical research Evidence ID: [id number] Evidence URL: http://www.ncbi.nlm .nih.gov/pubmed/248 06567 Evidence Title: Lapatinib plus paclitaxel versus paclitaxel alone in the second-line treatment of HER2-amplified advanced gastric cancer in populations: TyTAN--a randomized, phase III study - PubMed Label: FDA Off Label FDA Approved?: Yes On label?: No 09/23/2024 3:08 PM ECONOMICS ANALYST [facility]: Potential Therapy 11 Gene: 3430^ERBB2^HGNC Variant: ERBB2 Copy number gain Match Type: cnv Match Type Description: ERBB2 Copy number gain Agent: Trastuzumab + Paclitaxel + Carboplatin Drug Class: Combination (Anti-HER2 MAb + Anti-Tubulin Agent + [place] Agent) Tissue: Uterine Serous Carcinoma Association: Response Evidence Status: Consensus Evidence ID: NCCN Label: FDA Off Label FDA Approved?: Yes On label?: No 09/23/2024 3:08 PM ECONOMICS ANALYST [facility]: Potential Therapy 12 Gene: 3430^ERBB2^HGNC Variant: ERBB2 Copy number gain Match Type: cnv Match Type Description: ERBB2 Copy number gain Agent: Trastuzumab + Pembrolizumab Drug Class: Combination (Anti-HER2 MAb + Anti-PD-1 MAb) Tissue: Gastric Adenocarcinoma Association: Response Evidence Status: Consensus Evidence ID: NCCN Label: FDA Off Label FDA Approved?: Yes On label?: No 09/23/2024 3:08 PM ECONOMICS ANALYST [facility]: Potential Therapy 13 Gene: 3430^ERBB2^HGNC Variant: ERBB2 Copy number gain Match Type: cnv Match Type Description: ERBB2 Copy number gain Agent: Trastuzumab Deruxtecan Drug Class: MAb-Drug Conjugate Tissue: Gastric Adenocarcinoma Association: Response Evidence Status: Consensus Evidence ID: NCCN Label: FDA Off Label FDA Approved?: Yes On label?: No 09/23/2024 3:08 PM ECONOMICS ANALYST [facility]: Potential Therapy 14 Gene: N/A Variant: ERBB2 (HER2) Copy number gain; no detection of pathogenic GOF variants in KRAS, NRAS or BRAF Match Type: wildType Match Type Description: ERBB2 (HER2) Copy number gain; no detection of pathogenic GOF variants in KRAS, NRAS or BRAF Agent: Trastuzumab + Lapatinib Drug Class: Combination (Anti-HER2 MAb + Cadet-HER TKI) Tissue: Colorectal Cancer Association: Response Evidence Status: Consensus Evidence ID: NCCN NCCN Associated Evidence: Consensus, Colorectal Cancer MSK Associated Evidence: MSK OncoKB, Level 2 Label: FDA Off Label FDA Approved?: Yes On label?: No 09/23/2024 3:08 PM ECONOMICS ANALYST [facility]: Potential Therapy 15 Gene: N/A Variant: ERBB2 (HER2) Copy number gain; no detection of pathogenic GOF variants in KRAS, NRAS or BRAF Match Type: wildType Match Type Description: ERBB2 (HER2) Copy number gain; no detection of pathogenic GOF variants in KRAS, NRAS or BRAF Agent: Trastuzumab + Pertuzumab Drug Class: Combination (Anti-HER2 MAbs) Tissue: Colorectal Cancer Association: Response Evidence Status: Consensus Evidence ID: NCCN NCCN Associated Evidence: Consensus, Colorectal Cancer MSK Associated Evidence: MSK OncoKB, Level 2 Label: FDA Off Label FDA Approved?: Yes On label?: No 09/23/2024 3:08 PM ECONOMICS ANALYST [facility] Trial Count 4 09/23/2024 3:08 PM ECONOMICS ANALYST [facility]: Clinical Trial Match 1 Clinical Trial NCT ID: [id number] Clinical Trial Title: Targeted Therapy Directed by Genetic Testing in Treating Patients With Locally Advanced or Advanced Solid Tumors, The ComboMATCH Screening Trial Clinical Trial URL: https://clinicaltri als.gov/ct2/show/NC H63451413 Clinical Phase: Phase 2 Clinical Trial Matches: ERBB2 (HER2) amplification Clinical Trial Distance and Location: [address] [place], [place] 09/23/2024 3:08 PM ECONOMICS ANALYST [facility]: Clinical Trial Match 2 Clinical Trial NCT ID: [id number] Clinical Trial Title: Testing the Combination of Two Anti-cancer Drugs, [id number] and [id number], for The Treatment of Patients With Advanced Solid Tumors Expressing the HER2 Protein or Gene, The DASH Trial Clinical Trial URL: https://clinicaltri als.gov/ct2/show/NC J05884394 Clinical Phase: Phase 1 Clinical Trial Matches: ERBB2 (HER2) amplification Clinical Trial Distance and Location: [address] [place], [place] 09/23/2024 3:08 PM ECONOMICS ANALYST [facility]: Clinical Trial Match 3 Clinical Trial NCT ID: [id number] Clinical Trial Title: A Study of CPI-0209 in Patients With Advanced Solid Tumors and Lymphomas Clinical Trial URL: https://clinicaltri als.gov/ct2/show/NC [id number] Clinical Phase: Phase 1/Phase 2 Clinical Trial Matches: ARID1A p.S1085* mutation Clinical Trial Distance and Location: [address] [place], [place] 09/23/2024 3:08 PM ECONOMICS ANALYST [facility]: Clinical Trial Match 4 Clinical Trial NCT ID: [id number] Clinical Trial Title: Study of ATRN-119 in Patients with Advanced Solid Tumors Clinical Trial URL: https://clinicaltri als.gov/ct2/show/NC U04949281 Clinical Phase: Phase 1/Phase 2 Clinical Trial Matches: TP53 p.W53* mutation, ARID1A p.S1085* mutation Clinical Trial Distance and Location: [address] [place], [place] 09/23/2024 3:08 PM ECONOMICS ANALYST [facility] xR Result 1 NEGATIVE Negative - This report is being issued to report the results of gene rearrangement and altered splicing analysis from RNA sequencing. No gene rearrangements nor reportable altered splicing events were identified from RNA sequencing. 09/23/2024 3:08 PM ECONOMICS ANALYST [facility] Germline Variant Note No potential germline variants were found in the limited set of genes on which we report. 09/23/2024 3:08 PM ECONOMICS ANALYST [facility] Tissue specimen (specimen) 09/06/2024 2:16 PM ECONOMICS ANALYST 09/08/2024 11:27 AM ECONOMICS ANALYST Narrative This result has genomic variants that were not included in this document. us Olaf Nath MD MOLECULAR ORDERABLES Final Resu lt [facility] [address], [address] [place] [address], [facility] [address] [facility], [address] [place] [address] * CBC WITH DIFFERENTIAL (09/06/2024 11:46 AM ECONOMICS ANALYST) Blood us Olaf Nath MD HEMATOLOGY ORDERABLES Final Res ult * MRI ABDOMEN W WO CONTRAST (09/05/2024 3:54 PM ECONOMICS ANALYST) Anatomical Region Laterality Modality Abdomen Magnetic Resonan ce 09/05/2024 3:54 PM ECONOMICS ANALYST Impressions 09/06/2024 7:55 AM ECONOMICS ANALYST IMPRESSION: 1. MR findings consistent with progression of hepatic metastatic disease with development of at least 10 subcentimeter bilobar hypoenhancing, diffusion restricting lesions (suspicious for new sites of hepatic metastatic disease). Previously identified 1.3 cm lesion within hepatic segment 4A is stable. DICTATION LOCATION: Location [address] [place] [address] Narrative 09/06/2024 7:55 AM ECONOMICS ANALYST EXAMINATION: Abdominal MRI without and with contrast HISTORY: Rectal cancer metastasized to liver TECHNIQUE: Multiplanar, multisequence images were obtained through the abdomen before and after the uneventful administration of intravenous gadolinium contrast (10 mL Eovist) according to routine protocol. COMPARISON: MRI of the abdomen performed 06/30/2024 FINDINGS: Liver: Parenchyma: No evidence of hepatic steatosis. No evidence of cirrhosis. Focal lesions: Previously identified hypoenhancing, diffusion restricting subcapsular lesion within hepatic segment 4A adjacent to the falciform ligament is stable in size in compared to prior exam measuring 1.3 cm (series 24, image 82). There has interval development of multiple (at least 10) subcentimeter bilobar hypoenhancing, diffusion restricting lesions, suspicious for new sites of hepatic metastatic disease. For reference, the largest measures 9 mm within hepatic segment seven (series 28, image 99) and hepatic segment three (series 28, image 73). Vasculature: The hepatic veins are normal. The portal veins are normal. Biliary tree: No significant intrahepatic or extrahepatic biliary ductal dilatation is identified. Gallbladder: Cholelithiasis without MR evidence of acute cholecystitis. Spleen: The spleen remains enlarged measuring 16.6 cm maximum craniocaudal dimension. No focal splenic lesion is identified. Pancreas: A 7 mm T2 hyperintense, nonenhancing cystic lesion within the tail the pancreas is stable and likely represents a sidebranch IPMN. No significant pancreatic ductal dilatation is identified. Adrenal glands: Normal in appearance without focal lesion. Kidneys: Bilateral T2 hyperintense, nonenhancing simple renal cysts are noted. No solidly enhancing, suspicious renal lesions are identified. No hydronephrosis. Additional findings: Bilateral dependent atelectasis is noted in the visible lung bases. No suspicious intraosseous lesions are identified. No abdominal lymphadenopathy or ascites. Procedure Note Duke Cummins MD - 09/06/2024 EXAMINATION: Abdominal MRI without and with contrast HISTORY: Rectal cancer metastasized to liver TECHNIQUE: Multiplanar, multisequence images were obtained through the abdomen before and after the uneventful administration of intravenous gadolinium contrast (10 mL Eovist) according to routine protocol. COMPARISON: MRI of the abdomen performed 06/30/2024 FINDINGS: Liver: Parenchyma: No evidence of hepatic steatosis. No evidence of cirrhosis. Focal lesions: Previously identified hypoenhancing, diffusion restricting subcapsular lesion within hepatic segment 4A adjacent to the falciform ligament is stable in size in compared to prior exam measuring 1.3 cm (series 24, image 82). There has interval development of multiple (at least 10) subcentimeter bilobar hypoenhancing, diffusion restricting lesions, suspicious for new sites of hepatic metastatic disease. For reference, the largest measures 9 mm within hepatic segment seven (series 28, image 99) and hepatic segment three (series 28, image 73). Vasculature: The hepatic veins are normal. The portal veins are normal. Biliary tree: No significant intrahepatic or extrahepatic biliary ductal dilatation is identified. Gallbladder: Cholelithiasis without MR evidence of acute cholecystitis. Spleen: The spleen remains enlarged measuring 16.6 cm maximum craniocaudal dimension. No focal splenic lesion is identified. Pancreas: A 7 mm T2 hyperintense, nonenhancing cystic lesion within the tail the pancreas is stable and likely represents a sidebranch IPMN. No significant pancreatic ductal dilatation is identified. Adrenal glands: Normal in appearance without focal lesion. Kidneys: Bilateral T2 hyperintense, nonenhancing simple renal cysts are noted. No solidly enhancing, suspicious renal lesions are identified. No hydronephrosis. Additional findings: Bilateral dependent atelectasis is noted in the visible lung bases. No suspicious intraosseous lesions are identified. No abdominal lymphadenopathy or ascites. IMPRESSION: 1. MR findings consistent with progression of hepatic metastatic disease with development of at least 10 subcentimeter bilobar hypoenhancing, diffusion restricting lesions (suspicious for new sites of hepatic metastatic disease). Previously identified 1.3 cm lesion within hepatic segment 4A is stable. DICTATION LOCATION: Location [address] [place] [address] Isabella Campbell MD MR ORDERABLES Final Result * MRI PELVIS WO CONTRAST (09/05/2024 3:45 PM ECONOMICS ANALYST) Anatomical Region Laterality Modality Pelvis Magnetic Resonan ce 09/05/2024 3:45 PM ECONOMICS ANALYST Impressions 09/06/2024 9:52 AM ECONOMICS ANALYST IMPRESSION: Tumor regression grade (TRG): TRG 3 - moderate (Fibrosis predominant (>50%), visible tumor signal) yT category: yT3b; previously identified dictated tumor signal noted in the posterior aspect of the prostate gland has been replaced with T2 hypointense post treatment fibrosis Maximum EMD of invasion: 4 mm Low rectal tumor component: Suspected invasion of tumor signal into the intersphincteric space without definite invasion of the puborectalis sling/external sphincter. Mesorectal LN/tumor deposits: Mild interval decrease in size of previously identified mesorectal and superior rectal lymph nodes as above (N2). EMVI: Absent Extramesorectal LN: None DICTATION LOCATION: [address] Narrative 09/06/2024 9:52 AM ECONOMICS ANALYST EXAMINATION: MRI of the pelvis without contrast CLINICAL INFORMATION: Rectal cancer, assess treatment response COMPARISON: MRI pelvis performed 06/30/2024 PROCEDURE: MR of the pelvis was performed on a 3T magnet utilizing diffusion and T2 weighted imaging. FINDINGS: TUMOR REGRESSION GRADE: Fibrosis predominant (>50%), visible tumor signal (TRG 3 - moderate) TUMOR LOCATION AND CHARACTERISTICS: Location (from anal verge): Low Distance of anal verge to distal tumor margin: 3.1 cm Is the lowest extent of the tumor at or below the puborectalis sling: Yes Distance of lowest extent of tumor from top of anal sphincter: 0.8 cm Relationship to anterior peritoneal reflection: Below Craniocaudal length: 2.0 cm Clock face of tumor: Hemicircumferential (6:00-8:00) Mucinous: No EXTRAMURAL DEPTH OF INVASION AND yT-CATEGORY: Extramural depth of invasion: 3 mm yT category: yT3b If T4, indicate structures with possible invasion: Previously identified suspected invasion of the posterior aspect of the prostate gland with tumor signal has been replaced with T2 hypointense posttreatment fibrosis (series 11, image 23). For low rectal tumors (maximum tumor depth at or below puborectalis sling: Tumor signal appears to invade through the internal sphincter and into the intersphincteric space without definite invasion of the external sphincter/puborectalis sling. RELATIONSHIP TO MESORECTAL FASCIA (MRF): N/A EXTRAMURAL VASCULAR INVASION (EMVI): Absent MESORECTAL LYMPH NODES AND TUMOR DEPOSITS: Any suspicious mesorectal lymph nodes and/or tumor deposits (suspicious= irregular border, mixed signal intensity and/or >8mm): Previously identified enlarged mesorectal lymph node at the 2:00 position is mildly decreased in size now measuring 0.8 cm (series 11, image 13), previously 1.0 cm. Additional enlarged superior rectal lymph nodes have also mildly decreased in size measuring up to 1.0 cm (series 7, image 91, 92, and 93), previously 1.2 cm. EXTRAMESORECTAL LYMPH NODES: None ADDITIONAL COMMENTS: Bilateral fat-containing inguinal hernias are noted. Procedure Note uDke Cummins MD - 09/06/2024 EXAMINATION: MRI of the pelvis without contrast CLINICAL INFORMATION: Rectal cancer, assess treatment response COMPARISON: MRI pelvis performed 06/30/2024 PROCEDURE: MR of the pelvis was performed on a 3T magnet utilizing diffusion and T2 weighted imaging. FINDINGS: TUMOR REGRESSION GRADE: Fibrosis predominant (>50%), visible tumor signal (TRG 3 - moderate) TUMOR LOCATION AND CHARACTERISTICS: Location (from anal verge): Low Distance of anal verge to distal tumor margin: 3.1 cm Is the lowest extent of the tumor at or below the puborectalis sling: Yes Distance of lowest extent of tumor from top of anal sphincter: 0.8 cm Relationship to anterior peritoneal reflection: Below Craniocaudal length: 2.0 cm Clock face of tumor: Hemicircumferential (6:00-8:00) Mucinous: No EXTRAMURAL DEPTH OF INVASION AND yT-CATEGORY: Extramural depth of invasion: 3 mm yT category: yT3b If T4, indicate structures with possible invasion: Previously identified suspected invasion of the posterior aspect of the prostate gland with tumor signal has been replaced with T2 hypointense posttreatment fibrosis (series 11, image 23). For low rectal tumors (maximum tumor depth at or below puborectalis sling: Tumor signal appears to invade through the internal sphincter and into the intersphincteric space without definite invasion of the external sphincter/puborectalis sling. RELATIONSHIP TO MESORECTAL FASCIA (MRF): N/A EXTRAMURAL VASCULAR INVASION (EMVI): Absent MESORECTAL LYMPH NODES AND TUMOR DEPOSITS: Any suspicious mesorectal lymph nodes and/or tumor deposits (suspicious= irregular border, mixed signal intensity and/or >8mm): Previously identified enlarged mesorectal lymph node at the 2:00 position is mildly decreased in size now measuring 0.8 cm (series 11, image 13), previously 1.0 cm. Additional enlarged superior rectal lymph nodes have also mildly decreased in size measuring up to 1.0 cm (series 7, image 91, 92, and 93), previously 1.2 cm. EXTRAMESORECTAL LYMPH NODES: None ADDITIONAL COMMENTS: Bilateral fat-containing inguinal hernias are noted. IMPRESSION: Tumor regression grade (TRG): TRG 3 - moderate (Fibrosis predominant (>50%), visible tumor signal) yT category: yT3b; previously identified dictated tumor signal noted in the posterior aspect of the prostate gland has been replaced with T2 hypointense post treatment fibrosis Maximum EMD of invasion: 4 mm Low rectal tumor component: Suspected invasion of tumor signal into the intersphincteric space without definite invasion of the puborectalis sling/external sphincter. Mesorectal LN/tumor deposits: Mild interval decrease in size of previously identified mesorectal and superior rectal lymph nodes as above (N2). EMVI: Absent Extramesorectal LN: None DICTATION LOCATION: Location [address] [place] [address] Result [facility] Monae Gil MD MR ORDERABLES Fin al Result * DE ANES INSERT ENDOTRACHEAL AIRWAY (09/05/2024 2:33 PM ECONOMICS ANALYST) Narrative Jame Panda AA-C - 09/05/2024 2:33 PM ECONOMICS ANALYST Jame Panda AA-C 09/05/2024 2:41 PM Airway Date/Time: 09/05/2024 2:33 PM Location: OR Plan: routine intubation Patient Identity Confirmed by: Verbally with patient and armband Airway: not difficult Staffing Performed: ROLL REPAIRER/CAA Authorized by: Brianna Singh Prepost Performed by: Jame Panda AA-C Indications and Patient Condition: Indications for Airway Management: Anesthesia Sedation Level: general anesthesia Preoxygenated: yes Patient Position: Sniffing Mask Difficulty Assessment: 0 - not attempted Plan to extubate at end of case: Yes Final Airway Details: Final Airway Type: Endotracheal airway ETT Cuffed: Yes Cuff Volume (mL): 4 Technique Used for Successful ETT Placement: Direct laryngoscopy Blade Type: straight blade Blade Size: 2 Insertion Site: Oral ETT Size (mm): 7.0 Measured from: Teeth ETT to Teeth (cm): 23 Tube secured with: Tape Placement Verified by: auscultation, end tidal CO2 and chest rise Cormack-Lehane Classification: Grade I - full view of glottis Number of Attempts at Approach: 1 Additional Procedure Information: atraumatic and dentition unchanged Result [facility] Stlo Prepost 5 PROCEDURE/MINOR SURGICAL ORDERAB LES Final Result * (ABNORMAL) HEMOGLOBIN A1C (08/21/2024 10:46 AM ECONOMICS ANALYST) HEMOGLOBIN A1C 7.1(H) <5.7 % of total Hgb [facility] Comment: For someone without known diabetes, a hemoglobin A1c value of 6.5% or greater indicates that they may have diabetes and this should be confirmed with a follow-up test. For someone with known diabetes, a value <7% indicates that their diabetes is well controlled and a value greater than or equal to 7% indicates suboptimal control. A1c targets should be individualized based on duration of diabetes, age, comorbid conditions, and other considerations. Currently, no consensus exists regarding use of hemoglobin A1c for diagnosis of diabetes for children. ESTIMATED AVERAGE GLUCOSE (MG/DL) 157 mg/dL [facility] ESTIMATED AVERAGE GLUCOSE (MMOL/L) 8.7 mmol/L [facility] Comment: Test Performed at: [facility] [address] [address] [phone] [facility] Blood 08/21/2024 10:4 6 AM ECONOMICS ANALYST 08/21/2024 10:47 AM ECONOMICS ANALYST us Monae Gil MD CHEMISTRY ORDERABLE S Final Result [facility] [phone] [facility] [place] [address] [address] [place] [phone] from Last [address] [facility] [employer] [facility]
--- OUTSIDE RECORDS SUMMARY | 2024-10-25 08:39 | XMS_ITS | Referral Summary ---
Author Organization [facility] Address [address] [facility] [address] [place] [address] Phone Care Team Providers Care Veterinarian Poultry Name Role Phone John Paul Antunez NP Primary Care Provider [phone] Miguel Serrano MD Unavailable + Lane Montano MD Unavailable [phone] Olaf Nath MD Unavailable [phone] Chidi Simons MD Unavailable Encounters Date Type Department Care Team Description 10/02/2024 7:45 AM HYDROLOGY PROFESSOR Office Visit [facility] at [address] [address] John Paul Antunez NP Type 2 diabetes mellitus without complication, without long-term current use of insulin (HCC) (Primary Dx); Hypertension associated with diabetes (HCC); Hyperlipidemia associated with type 2 diabetes mellitus (HCC); Class 2 severe obesity due to excess calories with serious comorbidity and body mass index (BMI) of 35.0 to 35.9 in adult (HCC) 09/08/2024 Orders Only [facility] [address] [address] John Paul Antunez NP from Last 3 Months Allergies No known active allergies Medications docosahexaenoi c acid-epa 120-180 mg capsule Take by mouth daily 7 Active blood glucose diagnostic (OneTouch Verio test strips) strip daily Active blood-glucose meter misc OneTouch Verio Reflect Meter USE DIRECTED Active [...] 08/05/2022 Assessment & Plan (10/02/2024 9:38 AM HYDROLOGY PROFESSOR): Plan for weight loss is to decrease [...] fast Assessment & Plan (08/31/2023 9:37 AM HYDROLOGY PROFESSOR): Plan for weight loss is to decrease calories in diet and increase activity Assessment & Plan (01/13/2023 3:03 PM CDT): Plan for weight loss is to decrease calories in diet and increase activity Assessment & Plan (08/05/2022 3:19 PM HYDROLOGY PROFESSOR): Plan for weight loss is to decrease calories in diet and increase activity Hypertension associated with diabetes 08/05/2022 Assessment & Plan (10/02/2024 9:38 AM HYDROLOGY PROFESSOR): B/p goal <140/90 Today - 129/87 Continue [...] condition Assessment & Plan (08/31/2023 9:37 AM HYDROLOGY PROFESSOR): B/p goal <140/90 Today - 124/81 Continue - metoprolol, amlodipine, benazepril Chronic stable condition Assessment & Plan (01/13/2023 3:03 PM CDT): B/p goal <140/90 Today - 131/86 Continue - metoprolol, dyazide, amlodipin, benazepril Chronic stable condition Assessment & Plan (09/15/2022 4:22 PM HYDROLOGY PROFESSOR): B/p goal <140/90 Today - 135/88 Continue - dyazide, amlodipine, benazepril, metoprolol Chronic stable condition Assessment & Plan (08/05/2022 3:19 PM HYDROLOGY PROFESSOR): B/p goal <140/90 Today - 136/92 Continue - metoprolol, amlodipine, benazepril, dyazide Chronic stable condition Type 2 diabetes mellitus without complication Assessment & Plan (10/02/2024 9:39 AM HYDROLOGY PROFESSOR): A1c in July 7.1. Continue Jardiance, Ozempic, and diet to control diabetes. Condition stable. Assessment & Plan (04/07/2024 11:48 AM CDT): A1C 7.8 - increased possibly due to chemotherapy - continue current diet and metformin will continue to monitor Assessment & Plan (12/31/2023 12:45 PM CDT): A1C - 6.0 Condition stable - continue ozempic Assessment & Plan (08/31/2023 9:36 AM HYDROLOGY PROFESSOR): A1c increased to 7.6 Increase ozempic to 2mg weekly Decrease sugars in diet and increase activity Assessment & Plan (01/13/2023 3:02 PM CDT): A1c increased to 7.4 Counseled on dietary changes Continue ozempic and metformin Condition worsening Assessment & Plan (09/15/2022 4:21 PM HYDROLOGY PROFESSOR): Chronic stable condition Continue metformin and ozempic Assessment & Plan (08/05/2022 3:20 PM HYDROLOGY PROFESSOR): Continue ozempic, metformin Diabetes stable Other acute kidney failure 10/04/2016 Hyperlipidemia associated with type 2 diabetes martina fields 10/04/2016 Overview (12/31/2023): Converted unresolved ICD9, potential mismatch. Assessment & Plan (10/02/2024 9:39 AM HYDROLOGY PROFESSOR): Continue statin. Cholesterol stable. Assessment & Plan (04/07/2024 11:50 AM CDT): Continue statin Cholesterol stable Essential (primary) hypertension 10/04/2016 Immunizations Immunization Administration Dates Next Due Influenza, Unspecified 10/02/2024,2024(Deferred: Patient Refused),05/27/2023(Deferred: Patient Refused),08/05/2022(Deferred: Patient Refused),04/23/2021(Deferred: Patient Refused) Social History Tobacco Use Types Packs/Day Years [...] Comments Blood Pressure 129/87 10/02/2024 7:05 AM HYDROLOGY PROFESSOR Pulse 81 10/02/2024 7:05 AM HYDROLOGY PROFESSOR Temperature 36.2 C (97.2 F) 08/05/2022 1:20 PM HYDROLOGY PROFESSOR Respiratory Rate - - Oxygen Saturation 10% 12/14/2023 2:11 PM CDT Inhaled Oxygen Concentration - - Weight 112.8 kg (248 lb 9.6 oz) 04/07/2024 7:49 AM CDT Height 177.8 cm (5' 10 ) 10/02/2024 7:05 AM HYDROLOGY PROFESSOR Body Mass Index 35.67 04/07/2024 7:49 AM CDT Plan of Treatment Not on file Procedures Procedure Name Priority Date/Time Associated Diagnosis Comments POCT HEMOGLOBIN A1C Routine 04/07/2024 1 0:16 AM CDT Type 2 diabetes mellitus without complication, without long-term current use of insulin (HCC) COMPREHENSIVE METABOLIC PANEL Routine 08/28/2023 8:02 AM HYDROLOGY PROFESSOR Hypertension associated with diabetes (HCC) Type 2 diabetes mellitus without complication, without long-term current use of insulin (HCC) LIPID PANEL Routine 08/28/2023 8:02 AM HYDROLOGY PROFESSOR Hypertension associated with diabetes (HCC) Type 2 diabetes mellitus without complication, without long-term current use of insulin (HCC) ALBUMIN CREATININE RATIO, URINE Routine 08/28/2023 8:02 AM HYDROLOGY PROFESSOR Hypertension associated with diabetes (HCC) Type 2 diabetes mellitus without complication, without long-term current use of insulin (HCC) from Last 3 Months or Most Recently Relevant to Health Maintenance Results * (ABNORMAL) POCT hemoglobin A1c (04/07/2024 10:16 AM CDT) Hemoglobin A1C, POC 7.8 4.0 - 5.6 % Blood 04/07/2024 10:1 6 AM CDT us John Paul Antunez BATHROOM TILING PROFESSIONAL POINT OF CARE TEST ORDERABLES Final Result * (ABNORMAL) Albumin Creatinine Ratio, Urine (08/28/2023 8:02 AM HYDROLOGY PROFESSOR) Creatinine, ur 71 20 - 320 mg/dL [...] a diagnostic category. Urine 08/28/2023 8:02 AM HYDROLOGY PROFESSOR 08/28/2023 8:03 AM HYDROLOGY PROFESSOR Narrative [facility] - 08/29/2023 2:07 PM HYDROLOGY PROFESSOR FASTING:YES FASTING: YES us John Paul Antunez BATHROOM TILING PROFESSIONAL LAB URINE ORDERABLES Final Re sult [facility] [address] [place] [address] * (ABNORMAL) Lipid panel (08/28/2023 8:02 AM HYDROLOGY PROFESSOR) Cholesterol 163 <200 mg/dL [facility] [...] factors. LDL-C is now calculated using the Jesse-Garcia calculation, which is a validated novel method providing better accuracy than the Friedewald equation in the estimation of LDL-C. Jesse YA et al. OLMAN. 2013;310(19): 6554-0070 (http://education.[employer]/faq/DIZ894) Chol/HDL ratio 5.6(H) <5.0 (calc) [facility] Non-HDL, (LDL+VLDL) 134(H) <130 mg/dL (calc) [facility] Comment: For patients with diabetes plus 1 major ASCVD risk factor, treating to a non-HDL-C goal of <100 mg/dL (LDL-C of <70 mg/dL) is considered a therapeutic option. Blood 08/28/2023 8:02 AM HYDROLOGY PROFESSOR 08/28/2023 8:03 AM HYDROLOGY PROFESSOR Narrative [facility] - 08/29/2023 2:07 PM HYDROLOGY PROFESSOR FASTING:YES FASTING: YES John Paul Antunez NP LAB BLOOD ORDERABLES Final Re sult [facility] [address] [place] [address] * (ABNORMAL) Comprehensive metabolic panel (08/28/2023 8:02 AM HYDROLOGY PROFESSOR) [facility] Glucose 193(H) 65 - 99 mg/dL [...] [facility] Blood 08/28/2023 8:02 AM HYDROLOGY PROFESSOR 08/28/2023 8:03 AM HYDROLOGY PROFESSOR Narrative [facility] - 08/29/2023 2:07 PM HYDROLOGY PROFESSOR FASTING:YES FASTING: YES John Paul Antunez NP LAB BLOOD ORDERABLES Final Re sult [facility] [address] [place] [phone] from Last 3 Months or Most Recently Relevant to Health Maintenance Insurance ANTHEM ACCESS ANTHEM ACCESS Care Teams Veterinarian Poultry Relationship Specialty [place] [address] [facility] [address] [place] [address] PCP - General Family Medicine 08/05/22 Miguel Serrano MD [address] [place] [address] Referring Physician Gastroenterology 11/16/23 Lane Montano MD [address] [facility] [phone] [place] [address] Surgeon Colon and Rectal Surgery 12/15/23 Olaf Nath MD [address] [phone] Contact Lens Curve Grinder Hematology 12/15/23 Chidi Simons MD [address] [facility], [address] [place] [address] Radiation Oncologist Radiation Oncology 12/15/23
--- OUTSIDE RECORDS SUMMARY | 2024-10-25 08:39 | XMS_ITS | Clinical Summary ---
Author Organization [facility] Address [address], [place] [address] Phone Care Team Providers Care Wage Adjuster Name Role Phone Unavailable Primary Care Provider Unavailabl e Medications Medication Sig Dispensed Refills Start Date End Date Status metoprolol tartrate (LOPRESSOR) 50 MG tablet 1 tab/cap bid 0 10/04/2016 Active metFORMIN (GLUCOPHAGE) 500 MG tablet 1 tab/cap bid 0 10/04/2016 Active omega-3 (FISH OIL) 1000 MG capsule 1 tab/cap bid 0 10/04/2016 Active amLODIPine-benazepril (LOTREL) 10-40 MG per capsule 1 tab/cap qday 0 10/04/2016 Active triamterene-hydroCHLOROth iazide (MAXZIDE-25) 37.5-25 MG per tablet 1 tab/cap qday 0 10/04/2016 Active Active Problems Problem Noted Date Diagnosed Date Other acute kidney failure 10/04/2016 Type 2 diabetes mellitus without complication Essential (primary) hypertension 10/04/2016 Other hyperlipidemia 10/04/2016 Overview (11/05/2018): Converted unresolved ICD9, potential mismatch. Family History Medical History Relation Comments Coronary arteriosclerosis Father Diabetes mellitus Father Heart disease Father Hypertensive disorder Father Kidney disease Neg Hx Kidney stone Neg Hx Relation Status Comments Father Social History Tobacco Use Types Packs/Day Years Used Date Smoking Tobacco: Never Assessed Sex and Gender Information Value Date Recorded Sex Assigned at Not on file Gender Identity Not on file Sexual Orientation Not on file Last Filed Vital Signs Vital Sign Reading Time Taken Comments Blood Pressure 124/72 12/16/2016 12:01 AM CDT Si tting, Right Pulse - - Temperature 36.7 C (98 F) 12/16/2016 12:01 AM CDT Respiratory Rate - - Oxygen Saturation - - Inhaled Oxygen Concentration - - Weight 129 kg (285 lb) 12/16/2016 12:01 AM CDT Height 177.8 cm (5' 10 ) 12/16/2016 12:01 AM CDT Body Mass Index 40.89 12/16/2016 12:01 AM CDT Plan of Treatment Not on file
--- OUTSIDE RECORDS SUMMARY | 2024-10-25 08:39 | XMS_ITS | Encounter Summary ---
Author Organization [facility] Address [address] [place] [address] Care Team Providers Care Public Health Professor Name Role Phone Unavailable Primary Care Provider Unavailabl e Encounter Details Date Type Department Care Team (Late st Contact Info) Description 10/24/2024 External Device Data [facility] ABSTRACTION Provider, Abstract NO ADDRESS ON FILE Social History Tobacco Use Types Packs/Day Years Used Date Smoking Tobacco: Never Smokeless Tobacco: Never Alcohol Use Standard Drinks/Week Comments Yes 0 (1 standard drink = 0.6 oz pur e alcohol) rarely Sex and Gender Information Value Date Recorded Sex Assigned at Not on file Legal Sex Male 3:22 PM CDT Gender Identity Not on file Sexual Orientation Not on file documented as of this encounter Plan of Treatment Not on file documented as of this encounter Visit Diagnoses Not on filedocumented in this encounter
[2024-10-25 10:06] LABS: Cholesterol 111 mg/dL (0-200); HDL Direct 24 mg/dL; Triglycerides 142 mg/dL (<150)
[2024-10-25 10:17] LABS: LDL Cholesterol Direct 48 mg/dL
== END 2024-10-25 08:25 | disposition home or self-care (01) ==
LOC: ANHLAB 08:25
DX: E11.9 Type 2 diabetes mellitus without complications (principal)
CPT/HCPCS: 36415; 80061

== ENCOUNTER 2024-12-13 08:38 | Outpatient (CLI) | payer BC, SELFPAY ==
--- NOTE | ~2024-12-13 | CT_ITS ---
Clinical Indication: Rectal cancer CT Scan of the Chest, Abdomen, and Pelvis with Contrast: Technique: Contiguous sections were acquired throughout the chest, abdomen, and pelvis after intraven ous administration of 100 cc of Omnipaque 350. Dose reduction technique was used on this scan by magda dickinsoning automated exposure control and iterative reconstruction technique. The dose-length product (DL P) was 1675.68 mGy-cm. Comparison: 06/06/2024 Findings: There is no evidence of any significant mediastinal, hilar or axillary lymphadenopathy. The mediastin al soft tissues appear normal. There is no evidence of pleural or pericardial effusion. The lungs are clear. No pulmonary nodules or infiltrates are noted. There are numerous hypodense hepatic masses scattered throughout the liver, largest lesion measuring approximately 2.5 cm in diameter. The spleen, pancreas, gallbladder, adrenals and kidneys are within normal limits. No evidence of aortic aneurysm. No lymphadenopathy. Probable interval improvement in rectal wall thickening from prior exam. No bowel obstruction. Urinary bladder is unremarkable. Small bilateral fat-containing inguinal hernias are present. Urinary bladder unremarkable. No pelvic mass evident. No ascites. Impression: Extensive hepatic metastatic disease, as detailed above, new from prior exam. Probable interval improvement in distal rectal wall thickening since prior exam. Reviewed, dictated and finalized at location . Impression: Extensive hepatic metastatic disease, as detailed above, new from prior exam. Probable interval improvement in distal rectal wall thickening since prior exam .
--- OUTSIDE RECORDS SUMMARY | 2024-12-13 09:15 | XMS_ITS | Encounter Summary ---
Author Organization [facility] [employer] [facility] Address [address] [place] [address] Care Team Providers Care Laser Set Up Operator Name Role Phone Unavailable Primary Care Provider Unavailabl e Encounter Details Date Type Department Care Team (Late Contact Info) Description 12/06/2024 Orders Only [facility] Oncology and Hematology [facility] [address] [place] [phone] Olaf Nath MD [address] [place] [address] [employer] [address] [place] [phone] Social History Tobacco Use Types Packs/Day Years [...] as of this encounter Plan of Treatment Upcoming Encounters Date Type Department Care Team (Late st Contact Info) Description 12/20/2024 8:30 AM CDT Office Visit [facility] Oncology and Hematology Rajeev [address] [place] [address] Olaf Nath MD [address] [place], [place] [address] [address] [place] [phone] documented as of this encounter Procedures Procedure Name Priority Date/Time Associated Diagnosis Comments BASIC METABOLIC PANEL Routine 12/06/2024 11:39 AM CDT documented in this encounter Results * BASIC METABOLIC PANEL (12/06/2024 11:39 AM CDT) Blood us Olaf Nath MD CHEMISTRY ORDERABLES Final Resu lt documented in this encounter Visit Diagnoses Not on filedocumented in this encounter
--- OUTSIDE RECORDS SUMMARY | 2024-12-13 09:15 | XMS_ITS | Encounter Summary ---
Author Organization [facility] [employer] [facility] Address [address] [place] [address] Care Team Providers Care Aeroplane Pilot Name Role Phone Unavailable Primary Care Provider Unavailabl e Encounter Details Date Type Department Care Team (Late Contact Info) Description 12/11/2024 Orders Only [facility] Oncology [facility] [address] [place] [address] Olaf Nath MD [address] [place] [address] [employer] [address] [place] [phone] 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) Social History Tobacco Use Types Packs/Day Years [...] Description 12/20/2024 8:30 AM CDT Office Visit [facility] Oncology and [facility] [address] [place] [address] Olaf Nath MD [address] [employer] [address] [place] [phone] documented as of this encounter Visit Diagnoses Diagnosis 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) documented in this encounter
--- OUTSIDE RECORDS SUMMARY | 2024-12-13 09:15 | XMS_ITS | Clinical Summary ---
Author Organization [facility] Address [address] [address] Phone Care Team Providers Care Backhoe Operator Name Role Phone John Paul Antunez NP Primary Care Provider [phone] Miguel Serrano MD Unavailable + Lane Montano MD Unavailable [phone] Olaf Nath MD Unavailable [phone] Chidi Simons MD Unavailable Allergies No known active allergies Medications docosahexaenoi c acid-epa 120-180 mg capsule Take by mouth daily 7 Active blood glucose diagnostic (OneTouch Verio test strips) strip daily Active blood-glucose meter mis OneTouch Verio Reflect Meter USE DIRECTED Active lancets 33 gauge [facility] OneTouch Delica Plus Lancet 33 gauge CHECK BLOOD SUGARS TWICE DAILY Active tadalafiL (CIALIS) 20 mg tablet Take 1 tablet (20 mg total) by mouth daily as needed for erectile dysfunction 4 tablet 2 3 Active triamterene-hy droCHLOROthiaz hanane 37.5-25 mg per [...] 7 days 9 mL 3 4 Active capecitabine (XELODA) 500 mg tablet TAKE 3 TABLETS (1500 MG) TWICE DAILY WITH MEALS ON DAYS OF RADIAITON ONLY (WEDNESDAY THROUGH WEDNESDAY) 4 Active pregabalin (LYRICA) 150 mg capsule Take 1 capsule (150 mg total) by mouth 2 times daily 5 Active lactulose 0.67 gram/mL solution TAKE 30 ML BY MOUTH 2 TIMES DAILY NEEDED. 5 Active atorvastatin (LIPITOR) 10 mg tablet TAKE 1 TABLET BY MOUTH EVERY DAY 90 tablet 3 5 Active glipiZIDE (GLUCOTROL) 5 mg tabletIndicati ons:type 2 diabetes mellitus Take 1 tablet (5 mg total) by mouth daily with breakfast 30 tablet 1 5 12/24/19 25 Active empagliflozin (JARDIANCE) 25 mg tablet Take 1 tablet (25 mg total) by mouth daily 90 tablet 3 5 11/24/19 25 Discontin ued(Alter regla therapy) Active Problems [...] 08/05/2022 Assessment & Plan (10/02/2024 9:38 AM DIAMOND SETTER): Plan for weight loss is to decrease [...] fast Assessment & Plan (08/31/2023 9:37 AM DIAMOND SETTER): Plan for weight loss is to decrease calories in diet and increase activity Assessment & Plan (01/13/2023 3:03 PM CDT): Plan for weight loss is to decrease calories in diet and increase activity Assessment & Plan (08/05/2022 3:19 PM DIAMOND SETTER): Plan for weight loss is to decrease calories in diet and increase activity Hypertension associated with diabetes 08/05/2022 Assessment & Plan (10/02/2024 9:38 AM DIAMOND SETTER): B/p goal <140/90 Today - 129/87 Continue [...] condition Assessment & Plan (08/31/2023 9:37 AM DIAMOND SETTER): B/p goal <140/90 Today - 124/81 Continue - metoprolol, amlodipine, benazepril Chronic stable condition Assessment & Plan (01/13/2023 3:03 PM CDT): B/p goal <140/90 Today - 131/86 Continue - metoprolol, dyazide, amlodipin, benazepril Chronic stable condition Assessment & Plan (09/15/2022 4:22 PM DIAMOND SETTER): B/p goal <140/90 Today - 135/88 Continue - dyazide, amlodipine, benazepril, metoprolol Chronic stable condition Assessment & Plan (08/05/2022 3:19 PM DIAMOND SETTER): B/p goal <140/90 Today - 136/92 Continue - metoprolol, amlodipine, benazepril, dyazide Chronic stable condition Type 2 diabetes mellitus without complication Assessment & Plan (10/02/2024 9:39 AM DIAMOND SETTER): A1c in July 7.1. Continue Jardiance, Ozempic, and diet to control diabetes. Condition stable. Assessment & Plan (04/07/2024 11:48 AM CDT): A1C 7.8 - increased possibly due to chemotherapy - continue current diet and metformin will continue to monitor Assessment & Plan (12/31/2023 12:45 PM CDT): A1C - 6.0 Condition stable - continue ozempic Assessment & Plan (08/31/2023 9:36 AM DIAMOND SETTER): A1c increased to 7.6 Increase ozempic to 2mg weekly Decrease sugars in diet and increase activity Assessment & Plan (01/13/2023 3:02 PM CDT): A1c increased to 7.4 Counseled on dietary changes Continue ozempic and metformin Condition worsening Assessment & Plan (09/15/2022 4:21 PM DIAMOND SETTER): Chronic stable condition Continue metformin and ozempic Assessment & Plan (08/05/2022 3:20 PM DIAMOND SETTER): Continue ozempic, metformin Diabetes stable Other acute kidney failure 10/04/2016 Hyperlipidemia associated with type 2 diabetes m diamond 10/04/2016 Overview (12/31/2023): Converted unresolved ICD9, potential mismatch. Assessment & Plan (10/02/2024 9:39 AM DIAMOND SETTER): Continue statin. Cholesterol stable. Assessment & Plan (04/07/2024 11:50 AM CDT): Continue statin Cholesterol stable Essential (primary) hypertension 10/04/2016 Encounters Date Type Department Care Team Description 11/09/2024 Orders Only [facility] at [address] [address] John Paul Antunez NP 10/02/2024 7:45 AM DIAMOND SETTER Office Visit [facility] at [address] [address] John Paul Antunez, CHIDI Type 2 diabetes mellitus without complication, without long-term current use of insulin (HCC) (Primary Dx); Hypertension associated with diabetes (HCC); Hyperlipidemia associated with type 2 diabetes mellitus (HCC); Class 2 severe obesity due to excess calories with serious comorbidity and body mass index (BMI) of 35.0 to 35.9 in adult (HCC) from Last 3 Months Immunizations Immunization Administration Dates Next Due Influenza, Unspecified 10/02/2024,2024(Deferred: Patient Refused),05/27/2023(Deferred: Patient Refused),08/05/2022(Deferred: Patient Refused),04/23/2021(Deferred: Patient Refused) Surgical History Surgery Date Site/Laterality Comments PORTACATH PLACEMENT 11/11/2023 [facility] Medical History Medical History Date Comments Diabetes [...] Comments Blood Pressure 129/87 10/02/2024 7:05 AM DIAMOND SETTER Pulse 81 10/02/2024 7:05 AM DIAMOND SETTER Temperature 36.2 C (97.2 F) 08/05/2022 1:20 PM DIAMOND SETTER Respiratory Rate - - Oxygen Saturation 10% 12/14/2023 2:11 PM CDT Inhaled Oxygen Concentration - - Weight 112.8 kg (248 lb 9.6 oz) 04/07/2024 7:49 AM CDT Height 177.8 cm (5' 10 ) 10/02/2024 7:05 AM DIAMOND SETTER Body Mass Index 35.67 04/07/2024 7:49 AM [...] 08/28/2024 08/28/2023, 08/05/2022 eGFR 08/28/2024 08/28/2023, 08/05/2022 Depression Screening 12/30/2024 12/31/2023, 01/13/2023, 08/05/2022 Hemoglobin A1C 02/19/2025 08/21/2024, 0801/2024, 12/31/2023, Additional history exists Foot Exam 04/07/2025 04/07/2024, 01/13/2023 Colon Cancer Screening-Colonoscopy 11/07/2033 11/08/2023 Influenza Vaccine Completed 10/02/2024 DTaP/Tdap/Td Vaccine Discontinued Procedures Procedure Name Priority Date/Time Associated Diagnosis Comments POCT HEMOGLOBIN A1C Routine 04/07/2024 1 0:16 AM CDT Type 2 diabetes mellitus without complication, without long-term current use of insulin (HCC) COMPREHENSIVE METABOLIC PANEL Routine 08/28/2023 8:02 AM DIAMOND SETTER Hypertension associated with diabetes (HCC) Type 2 diabetes mellitus without complication, without long-term current use of insulin (HCC) LIPID PANEL Routine 08/28/2023 8:02 AM DIAMOND SETTER Hypertension associated with diabetes (HCC) Type 2 diabetes mellitus without complication, without long-term current use of insulin (HCC) ALBUMIN CREATININE RATIO, URINE Routine 08/28/2023 8:02 AM DIAMOND SETTER Hypertension associated with diabetes (HCC) Type 2 [...] Albumin Creatinine Ratio, Urine (08/28/2023 8:02 AM DIAMOND SETTER) Creatinine, ur 71 20 - 320 mg/dL [...] a diagnostic category. Urine 08/28/2023 8:02 AM DIAMOND SETTER 08/28/2023 8:03 AM DIAMOND SETTER Narrative [facility] - 08/29/2023 2:07 PM DIAMOND SETTER FASTING:YES FASTING: YES us John Paul Antunez NP LAB URINE ORDERABLES Final Re sult [facility] [address] [place] [address] * (ABNORMAL) Lipid panel (08/28/2023 8:02 AM DIAMOND SETTER) Cholesterol 163 <200 mg/dL [facility] [...] factors. LDL-C is now calculated using the Jesse-Jose calculation, which is a validated novel method providing better accuracy than the Friedewald equation in the estimation of LDL-C. Jesse YA et al. OLMAN. 2013;310(19): 2429-4947 (http://education.Gdd Hcanalytics/faq/VRS109) Chol/HDL ratio 5.6(H) <5.0 (calc) [facility] Non-HDL, (LDL+VLDL) 134(H) <130 mg/dL (calc) [facility] Comment: For patients with diabetes plus 1 major ASCVD risk factor, treating to a non-HDL-C goal of <100 mg/dL (LDL-C of <70 mg/dL) is considered a therapeutic option. Blood 08/28/2023 8:02 AM DIAMOND SETTER 08/28/2023 8:03 AM DIAMOND SETTER Narrative [facility] - 08/29/2023 2:07 PM DIAMOND SETTER FASTING:YES FASTING: YES us John Paul Antunez NP LAB BLOOD ORDERABLES Final Re sult [facility] [address] [facility] [place] [address] * (ABNORMAL) Comprehensive metabolic panel (08/28/2023 8:02 AM DIAMOND SETTER) Glucose 193(H) 65 - 99 mg/dL [facility] [...] [facility] Blood 08/28/2023 8:02 AM DIAMOND SETTER 08/28/2023 8:03 AM DIAMOND SETTER Narrative [facility] - 08/29/2023 2:07 PM DIAMOND SETTER FASTING:YES FASTING: YES John Paul Antunez FIELD CASE MANAGER LAB BLOOD ORDERABLES [facility] [address] [facility] [place] [address] from Last 3 Months or Most Recently Relevant to Health Maintenance Insurance ANTHEM ACCESS Member Subscriber Plan / Payer (Ef fective 2023-Present) Name:Reji Smith Relation to Subscriber:Self Name:Reji Smith Payer ID:[id number] (NAIC) Type:[facility] Address: [facility] [id number] ANTHEM ACCESS Care Teams Backhoe Operator Relationship Specialty [place] [address] [place] [address] PCP - General Family Medicine 08/05/22 Miguel Serrano MD [address] [place] [address] Referring Physician Gastroenterology 11/16/23 Lane Montano MD [address] [facility] [phone] [place] [address] Surgeon Colon and Rectal Surgery 12/15/23 Olaf Nath MD [address] [place] [address] Shell Fisherman Hematology 12/15/23 Chidi Simons MD [address] [facility] [place] [address] Radiation Oncologist Radiation Oncology 12/15/23
--- OUTSIDE RECORDS SUMMARY | 2024-12-13 09:15 | XMS_ITS | Clinical Summary ---
Author Organization [facility] Hermelinda Zavala Address [address] [place] [address] Care Team Providers Care Junior Accountant Bookkeeper Name Role Phone Unavailable Primary Care Provider Unavailabl e Allergies No known active allergies Medications amLODIPine-benaz epril (LOTREL) 10-40 mg capsule Take [...] 10 mg by mouth daily. 5 Active doxycycline (MONODOX) 100 mg Capsule Take 1 Capsule (100 mg) by mouth every 12 hours. 60 Capsule 3 5 025 Active Active Problems Problem Noted Date Diagnosed Date Rectal cancer metastasized to liver 06/24/2024 Class 2 severe obesity due t o excess calories with serious comorbidity and body mass index (BMI) of 35.0 to 35.9 in adult 08/05/2022 Essential (primary) hypertension 10/04/2016 Hyperlipidemia associated with type 2 diabetes m diamond 10/04/2016 Overview (06/26/2024): Converted unresolved ICD9, potential mismatch. 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) 12/06/2024 Orders Only [facility] Rajeev [address] [place] [phone] Olaf Nath MD 12/05/2024 External Device Data STL ABSTRACTION Provider, Abstract 12/05/2024 Orders Only [facility] - Rajeev [address] [place] [phone] Olaf Nath MD 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) (Primary Dx) 12/04/2024 Orders Only [facility] - Rajeev [address] [place] [phone] Olaf Nath MD 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) 11/27/2024 Orders Only [facility] - Rajeev [address] [place] [phone] Olaf Nath MD 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) 11/22/2024 8:30 AM CDT Office Visit [facility] - Corwith [address] [place] [address] Olaf Nath MD 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) (Primary Dx) 11/22/2024 Orders Only [facility] - Rajeev [address] [place] [address] Olaf Nath MD 11/20/2024 Orders Only [facility] - Rajeev [address] [place] [address] Olaf Nath MD 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) 11/13/2024 Orders Only [facility] - Rajeev [address] [place] [phone] Olaf Nath MD 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) 11/10/2024 Orders Only [facility] - Rajeev [address] [place] [phone] Olaf Nath MD 11/08/2024 External Device Data STL ABSTRACTION Provider, Abstract 11/06/2024 Orders Only [facility] - Rajeev [address] [place] [phone] Olaf Nath MD 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) 10/31/2024 External Device Data STL ABSTRACTION Provider, Abstract 10/31/2024 External Device Data STL ABSTRACTION Provider, Abstract 10/30/2024 Orders Only [facility] - Rajeev [address] [place] [phone] Olaf Nath MD 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) 10/28/2024 External Device Data STL ABSTRACTION Provider, Abstract 10/27/2024 External Device Data STL ABSTRACTION Provider, Abstract 10/25/2024 8:30 AM MACHINE CHAIN MAKER Office Visit [facility] [address] [place] [phone] Olaf Nath MD 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) (Primary Dx) 10/25/2024 Orders Only [facility] - Rajeev [address] [place] [phone] Olaf Nath MD 10/24/2024 External Device Data STL ABSTRACTION Provider, Abstract 10/24/2024 External Device Data STL ABSTRACTION Provider, Abstract 10/16/2024 Orders Only [facility] Raje[address] [place] [phone] Olaf Nath MD 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) 10/13/2024 Abstract [facility] Rajeev [address] [place] [phone] Olaf Nath MD 10/11/2024 Orders Only [facility] - Rajeev [address] [place] [address] Olaf Nath MD 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) (Primary Dx) 10/09/2024 Orders Only [facility] - Rajeev [address] [place] [address] Olaf Nath MD 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) 10/02/2024 Orders Only [facility] - Rajeev [address] [place] [address] Olaf Nath MD 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) 09/28/2024 Abstract [facility] - Rajeev [address] [place] [phone] Olaf Nath MD 09/27/2024 8:45 AM MACHINE CHAIN MAKER Office Visit [facility] - Corwith [address] [place] [address] Olaf Nath MD 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) (Primary Dx) 09/26/2024 External Device Data STL ABSTRACTION Provider, Abstract 09/25/2024 Orders Only [facility] - Rajeev [address] [place] [phone] Olaf Nath MD 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) 09/22/2024 Orders Only [facility] - Rajeev [address] [place] [phone] Olaf Nath MD 09/21/2024 Orders Only [facility] - Rajeev [address] [place] [address] Olaf Nath MD 09/21/2024 Telephone [facility] - Rajeev [address] [place] [address] Olaf Nath MD Procrit Injections 09/20/2024 Orders Only [facility] - Rajeev [address] [place] [address] Olaf Nath MD 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) (Primary Dx) 09/20/2024 Orders Only [facility] - Rajeev [address] [place] [address] Olaf Nath MD Chronic anemia (Primary Dx) 09/19/2024 External Device Data STL ABSTRACTION Provider, Abstract from Last 3 Months Family History Medical [...] Sign Reading Time Taken Comments Blood Pressure 127/83 11/22/2024 8:46 AM CDT Pulse 85 11/22/2024 8:46 AM CDT Temperature 35.9 C (96.6 F) 11/22/2024 8:46 AM CDT Respiratory Rate 15 11/22/2024 8:46 AM CDT Oxygen Saturation 96% 11/22/2024 8:46 AM CDT Inhaled Oxygen Concentration - - Weight 112.6 kg (248 lb 3.2 oz) 11/22/2024 8:46 AM CDT Height 175.3 cm (5' 9 ) 09/05/2024 10:3 1 AM MACHINE CHAIN MAKER Body Mass Index 36.65 09/05/2024 10:31 AM MACHINE CHAIN MAKER Plan of Treatment Upcoming Encounters Date Type Department Care Team (Late st Contact Info) Description 12/20/2024 8:30 AM CDT Office Visit [facility] [address] [facility] [address] [place] [address] Olaf Nath MD [address] [facility] [address] [place] [address] Health Maintenance Due Date Last Done Comments [...] METABOLIC PANEL Routine 12/06/2024 11:39 AM CDT COMPREHENSIVE METABOLIC PANEL Routine 11/22/2024 12:52 PM CDT BASIC METABOLIC PANEL Routine 10/25/2024 11:39 AM MACHINE CHAIN MAKER IRON PANEL Routine 09/20/2024 4:31 PM MACHINE CHAIN MAKER BASIC METABOLIC PANEL Routine 09/20/2024 9:50 AM MACHINE CHAIN MAKER COMPREHENSIVE METABOLIC PANEL Routine 09/20/2024 9:46 AM MACHINE CHAIN MAKER VITAMIN B12 LEVEL Routine 09/20/2024 9:1 0 AM MACHINE CHAIN MAKER [facility] Routine 09/15/2024 3:31 PM MACHINE CHAIN MAKER 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 Blood us Olaf Nath MD CHEMISTRY ORDERABLES Final Resu lt * COMPREHENSIVE METABOLIC PANEL (11/22/2024 12:52 PM CDT) Only the most recent of2 resultswithin the time period is included. Blood us Olaf Nath MD CHEMISTRY ORDERABLES Final Resu lt * IRON PANEL (09/20/2024 4:31 PM MACHINE CHAIN MAKER) Blood us Olaf Nath MD CHEMISTRY ORDERABLES Final Resu lt * VITAMIN B12 LEVEL (09/20/2024 9:10 AM MACHINE CHAIN MAKER) Blood us Olaf Nath MD CHEMISTRY ORDERABLES Final Resu lt * [facility] XF (09/15/2024 3:31 PM MACHINE CHAIN MAKER) Reason for Study To identify mutations relevant to patient's cancer. 09/15/2024 3:31 PM MACHINE CHAIN MAKER [facility] Genetic Diseases Assessed Cancer 09/15/2024 3:31 PM MACHINE CHAIN MAKER [facility] Description of Ranges of DNA Sequences Examined 105 gene liquid biopsy 09/15/2024 3:31 PM MACHINE CHAIN MAKER [facility] Overall Interpretation positive 09/15/2024 3:31 PM MACHINE CHAIN MAKER [facility] [email or web address] 09/15/2024 3:31 PM MACHINE CHAIN MAKER [facility] Comment:[facility] link Low Coverage Regions JAK1 09/15/2024 3:31 PM MACHINE CHAIN MAKER [facility] Therapy Count 14 09/15/2024 3:31 PM MACHINE CHAIN MAKER [facility]: Potential Therapy 1 Gene: [...] Yes On label?: Yes 09/15/2024 3:31 PM MACHINE CHAIN MAKER [facility]: Potential Therapy 2 Gene: 3430^ERBB2^HGNC Variant: ERBB2 Copy number gain Match Type: cnv Match Type Description: ERBB2 Copy number gain Agent: Ado-Trastuzumab Emtansine Drug Class: Anti-HER2 MAb Tissue: Breast Cancer Association: Response Evidence Status: Consensus Evidence ID: NCCN Label: FDA Off Label FDA Approved?: Yes On label?: No 09/15/2024 3:31 PM MACHINE CHAIN MAKER [facility]: Potential Therapy 3 Gene: 3430^ERBB2^HGNC Variant: ERBB2 Copy number gain Match Type: cnv Match Type Description: ERBB2 Copy number gain Agent: Margetuximab-cmkb Drug Class: Anti-HER2 MAb Tissue: Breast Cancer Association: Response Evidence Status: Consensus Evidence ID: NCCN Label: FDA Off Label FDA Approved?: Yes On label?: No 09/15/2024 3:31 PM MACHINE CHAIN MAKER [facility]: Potential Therapy 4 Gene: 3430^ERBB2^HGNC Variant: ERBB2 Copy number gain Match Type: cnv Match Type Description: ERBB2 Copy number gain Agent: Trastuzumab Drug Class: Anti-HER2 MAb Tissue: Gastroesophageal Junction Adenocarcinoma Association: Response Evidence Status: Consensus Evidence ID: NCCN Label: FDA Off Label FDA Approved?: Yes On label?: No 09/15/2024 3:31 PM MACHINE CHAIN MAKER [facility]: Potential Therapy 5 Gene: 3430^ERBB2^HGNC Variant: ERBB2 Copy number gain Match Type: cnv Match Type Description: ERBB2 Copy number gain Agent: Capecitabine + Neratinib Drug Class: Combination (Pyrimidine Analog + Cadet-HER TKI) Tissue: Breast Cancer Association: Response Evidence Status: Consensus Evidence ID: NCCN Label: FDA Off Label FDA Approved?: Yes On label?: No 09/15/2024 3:31 PM MACHINE CHAIN MAKER [facility]: Potential Therapy 6 Gene: [...] Yes On label?: No 09/15/2024 3:31 PM MACHINE CHAIN MAKER [facility]: Potential Therapy 7 Gene: 3430^ERBB2^HGNC Variant: ERBB2 Copy number gain Match Type: cnv Match Type Description: ERBB2 Copy number gain Agent: Lapatinib + Capecitabine Drug Class: Combination (Cadet-HER TKI + Pyrimidine Analog) Tissue: Breast Cancer Association: Response Evidence Status: Consensus Evidence ID: NCCN Label: FDA Off Label FDA Approved?: Yes On label?: No 09/15/2024 3:31 PM MACHINE CHAIN MAKER [facility]: Potential Therapy 8 Gene: 3430^ERBB2^HGNC Variant: ERBB2 Copy number gain Match Type: cnv Match Type Description: ERBB2 Copy number gain Agent: Neratinib Drug Class: Cadet-HER TKI Tissue: Breast Cancer Association: Response Evidence Status: Consensus Evidence ID: NCCN Label: FDA Off Label FDA Approved?: Yes On label?: No 09/15/2024 3:31 PM MACHINE CHAIN MAKER [facility]: Potential Therapy 9 Gene: 3430^ERBB2^HGNC Variant: ERBB2 Copy number gain Match Type: cnv Match Type Description: ERBB2 Copy number gain Agent: Lapatinib Drug Class: Cadet-HER TKI Tissue: Gastric Cancer Association: Response Evidence Status: Clinical research Evidence ID: [id number] Evidence URL: http://www.ncbi.nlm .nih.gov/pubmed/248 35505 Evidence Title: Lapatinib plus paclitaxel versus paclitaxel alone in the second-line treatment of HER2-amplified advanced gastric cancer in populations: TyTAN--a randomized, phase III study - PubMed Label: FDA Off Label FDA Approved?: Yes On label?: No 09/15/2024 3:31 PM MACHINE CHAIN MAKER [facility]: Potential Therapy 10 Gene: 3430^ERBB2^HGNC Variant: ERBB2 Copy number gain Match Type: cnv Match Type Description: ERBB2 Copy number gain Agent: Trastuzumab + Paclitaxel + Carboplatin Drug Class: Combination (Anti-HER2 MAb + Anti-Tubulin Agent + Central Agent) Tissue: Uterine Serous Carcinoma Association: Response Evidence Status: Consensus Evidence ID: NCCN Label: FDA Off Label FDA Approved?: Yes On label?: No 09/15/2024 3:31 PM MACHINE CHAIN MAKER [facility]: Potential Therapy 11 Gene: 3430^ERBB2^HGNC Variant: ERBB2 Copy number gain Match Type: cnv Match Type Description: ERBB2 Copy number gain Agent: Trastuzumab + Pembrolizumab Drug Class: Combination (Anti-HER2 MAb + Anti-PD-1 MAb) Tissue: Gastric Adenocarcinoma Association: Response Evidence Status: Consensus Evidence ID: NCCN Label: FDA Off Label FDA Approved?: Yes On label?: No 09/15/2024 3:31 PM MACHINE CHAIN MAKER [facility]: Potential Therapy 12 Gene: 3430^ERBB2^HGNC Variant: ERBB2 Copy number gain Match Type: cnv Match Type Description: ERBB2 Copy number gain Agent: Trastuzumab Deruxtecan Drug Class: MAb-Drug Conjugate Tissue: Gastric Adenocarcinoma Association: Response Evidence Status: Consensus Evidence ID: NCCN Label: FDA Off Label FDA Approved?: Yes On label?: No 09/15/2024 3:31 PM MACHINE CHAIN MAKER [facility]: Potential Therapy 13 Gene: [...] Yes On label?: No 09/15/2024 3:31 PM MACHINE CHAIN MAKER [facility]: Potential Therapy 14 Gene: [...] Yes On label?: No 09/15/2024 3:31 PM MACHINE CHAIN MAKER [facility] Trial Count 3 09/15/2024 3:31 PM MACHINE CHAIN MAKER [facility]: Clinical Trial Match 1 Clinical Trial NCT ID: [id number] Clinical Trial Title: Testing the Combination of Two Anti-cancer Drugs, DS-[id number] and [id number], for The Treatment of Patients With Advanced Solid Tumors Expressing the HER2 Protein or Gene, The DASH Trial Clinical Trial URL: https://clinicaltri als.gov/ct2/show/NC X52306378 Clinical Phase: Phase 1 Clinical Trial Matches: ERBB2 (HER2) amplification Clinical Trial Distance and Location: [address] [place], [place] 09/15/2024 3:31 PM MACHINE CHAIN MAKER [facility]: Clinical Trial Match 2 Clinical Trial NCT ID: [id number] Clinical Trial Title: A Study of CPI-0209 in Patients With Advanced Solid Tumors and Lymphomas Clinical Trial URL: https://clinicaltri als.gov/ct2/show/NC [email or web address] Clinical Phase: Phase 1/Phase 2 Clinical Trial Matches: ARID1A p.S1085* mutation Clinical Trial Distance and Location: [address] [place], [place] 09/15/2024 3:31 PM MACHINE CHAIN MAKER [facility]: Clinical Trial Match 3 Clinical Trial NCT ID: [id number] Clinical Trial Title: Study of ATRN-119 in Patients with Advanced Solid Tumors Clinical Trial URL: https://clinicaltri als.gov/ct2/show/NC E10938720 Clinical Phase: Phase 1/Phase 2 Clinical Trial Matches: TP53 p.W53* mutation, ARID1A p.S1085* mutation Clinical Trial Distance and Location: [address] [place], [place] 09/15/2024 3:31 PM MACHINE CHAIN MAKER [facility] Tumor Mutational [place] 4.3 m/MB 09/15/2024 3:31 PM MACHINE CHAIN MAKER [facility] Microsatellite Instability Note MSI-High not detected 09/15/2024 3:31 PM MACHINE CHAIN MAKER [facility] Blood specimen (specimen) 09/08/2024 10:45 PM MACHINE CHAIN MAKER Narrative This result has genomic variants that were not included in this document. Olaf Nath MD MOLECULAR ORDERABLES Final Resu lt Performing Organization Address City/[facility]/ZIP Ak de Phone Number [facility] [address] [facility] [facility] [address], [address] [place] [address], [facility] [address], [address] [place] [id number] * (ABNORMAL) HEMOGLOBIN A1C (08/21/2024 10:46 AM MACHINE CHAIN MAKER) HEMOGLOBIN A1C 7.1(H) <5.7 % of total Hgb [id number] Comment: For someone without known diabetes, a [...] children. ESTIMATED AVERAGE GLUCOSE (MG/DL) 157 mg/dL [id number] ESTIMATED AVERAGE GLUCOSE (MMOL/L) 8.7 mmol/L [facility]: [facility]formed at: [facility] [address] [place] [address] Angelia Duke Blood 08/21/2024 10:4 6 AM MACHINE CHAIN MAKER 08/21/2024 10:47 AM MACHINE CHAIN MAKER Monae Gil MD CHEMISTRY ORDERABLE S Final Result [facility] [phone] [facility] [address] [place] [address] from Last 3 Months or Most Recently Relevant to Health Maintenance Insurance BS [employer] BLUE ACCESS [employer] [facility] [place] ACCESS
--- OUTSIDE RECORDS SUMMARY | 2024-12-13 09:15 | XMS_ITS | Clinical Summary ---
Author Organization [facility] Chica cassidy Address [address] [address] Phone Care Team Providers Care Heel Seat Trimmer Name Role Phone Unavailable Primary Care Provider Unavailabl e Medications metoprolol tartrate (LOPRESSOR) 50 MG tablet 1 tab/cap bid 0 10/04/2016 Active metFORMIN (GLUCOPHAGE) 500 MG tablet 1 tab/cap bid 0 10/04/2016 Active omega-3 (FISH OIL) 1000 MG capsule 1 tab/cap bid 0 10/04/2016 Active amLODIPine-benaz epril (LOTREL) 10-40 MG per capsule 1 tab/cap qday 0 10/04/2016 Active triamterene-hydr oCHLOROthiazide (MAXZIDE-25) 37.5-25 MG per tablet 1 tab/cap [...] at Not on file Legal Sex Male 7:29 AM MST Gender Identity Not on file Sexual Orientation [...]
--- OUTSIDE RECORDS SUMMARY | 2024-12-13 09:15 | XMS_ITS | Referral Summary ---
Author Organization [facility] Address [address] [address] Phone Care Team Providers Care Financial Wellness Coach Name Role Phone John Paul Antunez NP Primary Care Provider [phone] Miguel Serrano MD Unavailable + Lane Montano MD Unavailable [phone] Olaf Nath MD Unavailable [phone] Chidi Simons MD Unavailable Encounters Date Type Department Care Team Description 11/09/2024 Orders Only [facility] at [address] [phone] John Paul Antunez NP 10/02/2024 7:45 AM ELECTORAL OFFICER Office Visit [facility] at [address] [phone] John Paul Antunez NP Type 2 diabetes mellitus without complication, without long-term current use of insulin (HCC) (Primary Dx); Hypertension associated with diabetes (HCC); Hyperlipidemia associated with type 2 diabetes mellitus (HCC); Class 2 severe obesity due to excess calories with serious comorbidity and body mass index (BMI) of 35.0 to 35.9 in adult (HCC) from Last 3 Months Allergies No known active allergies Medications docosahexaenoi c acid-epa 120-180 mg capsule Take by mouth daily 7 Active blood glucose diagnostic (OneTouch Verio test strips) strip daily Active blood-glucose meter misc Oneuch Verio Reflect Meter USE DIRECTED Active lancets 33 gauge [facility] OneTouch Delica Plus Lancet 33 gauge CHECK [...] (1500 MG) TWICE DAILY WITH MEALS ON OF ONLY (WEDNESDAY THROUGH WEDNESDAY) 4 Active [...] 08/05/2022 Assessment & Plan (10/02/2024 9:38 AM ELECTORAL OFFICER): Plan for weight loss is to decrease [...] fast Assessment & Plan (08/31/2023 9:37 AM ELECTORAL OFFICER): Plan for weight loss is to decrease calories in diet and increase activity Assessment & Plan (01/13/2023 3:03 PM CDT): Plan for weight loss is to decrease calories in diet and increase activity Assessment & Plan (08/05/2022 3:19 PM ELECTORAL OFFICER): Plan for weight loss is to decrease calories in diet and increase activity Hypertension associated with diabetes 08/05/2022 Assessment & Plan (10/02/2024 9:38 AM ELECTORAL OFFICER): B/p goal <140/90 Today - 129/87 Continue [...] condition Assessment & Plan (08/31/2023 9:37 AM ELECTORAL OFFICER): B/p goal <140/90 Today - 124/81 Continue - metoprolol, amlodipine, benazepril Chronic stable condition Assessment & Plan (01/13/2023 3:03 PM CDT): B/p goal <140/90 Today - 131/86 Continue - metoprolol, dyazide, amlodipin, benazepril Chronic stable condition Assessment & Plan (09/15/2022 4:22 PM ELECTORAL OFFICER): B/p goal <140/90 Today - 135/88 Continue - dyazide, amlodipine, benazepril, metoprolol Chronic stable condition Assessment & Plan (08/05/2022 3:19 PM ELECTORAL OFFICER): B/p goal <140/90 Today - 136/92 Continue - metoprolol, amlodipine, benazepril, dyazide Chronic stable condition Type 2 diabetes mellitus without complication Assessment & Plan (10/02/2024 9:39 AM ELECTORAL OFFICER): A1c in July 7.1. Continue Jardiance, Ozempic, and diet to control diabetes. Condition stable. Assessment & Plan (04/07/2024 11:48 AM CDT): A1C 7.8 - increased possibly due to chemotherapy - continue current diet and metformin will continue to monitor Assessment & Plan (12/31/2023 12:45 PM CDT): A1C - 6.0 Condition stable - continue ozempic Assessment & Plan (08/31/2023 9:36 AM ELECTORAL OFFICER): A1c increased to 7.6 Increase ozempic to 2mg weekly Decrease sugars in diet and increase activity Assessment & Plan (01/13/2023 3:02 PM CDT): A1c increased to 7.4 Counseled on dietary changes Continue ozempic and metformin Condition worsening Assessment & Plan (09/15/2022 4:21 PM ELECTORAL OFFICER): Chronic stable condition Continue metformin and ozempic Assessment & Plan (08/05/2022 3:20 PM ELECTORAL OFFICER): Continue ozempic, metformin Diabetes stable Other acute kidney failure 10/04/2016 Hyperlipidemia associated with type 2 diabetes [place] 10/04/2016 Overview (12/31/2023): Converted unresolved ICD9, potential mismatch. Assessment & Plan (10/02/2024 9:39 AM ELECTORAL OFFICER): Continue statin. Cholesterol stable. Assessment & Plan [...] Comments Blood Pressure 129/87 10/02/2024 7:05 AM ELECTORAL OFFICER Pulse 81 10/02/2024 7:05 AM ELECTORAL OFFICER Temperature 36.2 C (97.2 F) 08/05/2022 1:20 PM ELECTORAL OFFICER Respiratory Rate - - Oxygen Saturation 10% 12/14/2023 2:11 PM CDT Inhaled Oxygen Concentration - - Weight 112.8 kg (248 lb 9.6 oz) 04/07/2024 7:49 AM CDT Height 177.8 cm (5' 10 ) 10/02/2024 7:05 AM ELECTORAL OFFICER Body Mass Index 35.67 04/07/2024 7:49 AM CDT Plan of Treatment Not on file Procedures Procedure Name Priority Date/Time Associated Diagnosis Comments POCT HEMOGLOBIN A1C Routine 04/07/2024 1 0:16 AM CDT Type 2 diabetes mellitus without complication, without long-term current use of insulin (HCC) COMPREHENSIVE METABOLIC PANEL Routine 08/28/2023 8:02 AM ELECTORAL OFFICER Hypertension associated with diabetes (HCC) Type 2 diabetes mellitus without complication, without long-term current use of insulin (HCC) LIPID PANEL Routine 08/28/2023 8:02 AM ELECTORAL OFFICER Hypertension associated with diabetes (HCC) Type 2 diabetes mellitus without complication, without long-term current use of insulin (HCC) ALBUMIN CREATININE RATIO, URINE Routine 08/28/2023 8:02 AM ELECTORAL OFFICER Hypertension associated with diabetes (HCC) Type 2 diabetes mellitus without complication, without long-term current use of insulin (HCC) from Last 3 Months or Most Recently Relevant to Health Maintenance Results * (ABNORMAL) POCT hemoglobin A1c (04/07/2024 10:16 AM CDT) Hemoglobin A1C, POC 7.8 4.0 - 5.6 % Blood 04/07/2024 10:1 6 AM CDT us John Paul Antunez COLDFUSION POINT OF CARE TEST ORDERABLES Final Result * (ABNORMAL) Albumin Creatinine Ratio, Urine (08/28/2023 8:02 AM ELECTORAL OFFICER) Creatinine, ur 71 20 - 320 mg/dL [...] a diagnostic category. Urine 08/28/2023 8:02 AM ELECTORAL OFFICER 08/28/2023 8:03 AM ELECTORAL OFFICER Narrative [facility] - 08/29/2023 2:07 PM ELECTORAL OFFICER FASTING:YES FASTING: YES John Paul Antunez COLDFUSION LAB URINE ORDERABLES Final Re sult [facility] [address] [address] [place] [phone] * (ABNORMAL) Lipid panel (08/28/2023 8:02 AM ELECTORAL OFFICER) Cholesterol 163 <200 mg/dL [facility] HDL 29(L) > OR = 40 mg/dL [facility] Triglycerides 409(H) <150 mg/dL [facility] Comment: If a non-fasting specimen was collected, consider repeat triglyceride testing on a fasting specimen if clinically indicated. Mouna carrillo al. J. of Clin. Lipidol. 2015;9:129-169. LDL [...] LDL-C. Jesse YA et al. OLMAN. 2013;310(19): 9951-9274 (http://education.[employer]/faq/TMM820) Chol/HDL ratio 5.6(H) <5.0 (calc) [facility] Non-HDL, (LDL+VLDL) 134(H) <130 mg/dL (calc) [facility] Comment: For patients with diabetes plus 1 major ASCVD risk factor, treating to a non-HDL-C goal of <100 mg/dL (LDL-C of <70 mg/dL) is considered a therapeutic option. Blood 08/28/2023 8:02 AM ELECTORAL OFFICER 08/28/2023 8:03 AM ELECTORAL OFFICER Narrative [facility] - 08/29/2023 2:07 PM ELECTORAL OFFICER FASTING:YES FASTING: YES John Paul Antunez NP LAB BLOOD ORDERABLES [facility] [address] [place] [address] * (ABNORMAL) Comprehensive metabolic panel (08/28/2023 8:02 AM ELECTORAL OFFICER) [facility] Glucose 193(H) 65 - 99 mg/dL [...] [facility] Blood 08/28/2023 8:02 AM ELECTORAL OFFICER 08/28/2023 8:03 AM ELECTORAL OFFICER Narrative [facility] - 08/29/2023 2:07 PM ELECTORAL OFFICER FASTING:YES FASTING: YES us John Paul Antunez COLDFUSION LAB BLOOD ORDERABLES Final Re sult [facility] [address] [address] [place] [phone] from Last 3 Months or Most Recently Relevant to Health Maintenance Insurance ANTHEM ACCESS ANTHEM ACCESS Care Teams Financial Wellness Coach Relationship Specialty [place] [id number] [facility] [address] [place] [address] PCP - General Family Medicine 08/05/22 Miguel Serrano MD [address] [place] [address] Referring Physician Gastroenterology 11/16/23 Lane Montano MD [address] [facility] [phone] [place] [address] Surgeon Colon and Rectal Surgery 12/15/23 Olaf Nath MD [address] [phone] Brand Marketing Specialist Hematology 12/15/23 Chidi Simons MD [address] [facility], [address] [place] [address] Radiation Oncologist Radiation Oncology 12/15/23
== END 2024-12-13 08:39 | disposition home or self-care (01) ==
PROVIDERS: Visit Provider Internal Medicine Hematology & Oncology
DX: C20 Malignant neoplasm of rectum (principal); C77.5 Secondary and unspecified malignant neoplasm of intrapelvic lymph nodes
CPT/HCPCS: 71260; 74177; Q9967

== ENCOUNTER 2025-01-05 12:30 | Outpatient (RCR) | payer BC, SELFPAY ==
[2023-12-06 10:53] LABS: Basophils Percent Auto 0.3 % (0.2-1.2); Eosinophils Absolute Auto 0.1 K/mm3 (0-0.3); Eosinophils Percent Auto 1.2 % (0-4.4); Hematocrit 27.8 % (42.0-52.0); Hemoglobin 8.7 g/dL (14.0-18.0); Immature Granulocyte Absolute 0.03 K/mm3 (0.00-0.031); Immature Granulocyte Percent A 0.3 % (0-0.5); Lymphocytes Percent Auto 18.5 % (18.3-44.2); Mean Corpuscular HGB Conc 31.3 g/dl (32-36); Mean Corpuscular Volume 79.9 fl (80-100); Mean Platelet Volume 8.9 fl (7.4-10.4); Monocytes Absolute Auto 0.6 K/mm3 (0.1-0.6); Monocytes Percent Auto 6.5 % (2.6-8.5); Neutrophils Absolute Auto 7.1 K/mm3 (1.3-6.7); Neutrophils Percent Auto 73.2 % (45.5-73.1); Platelet Count Result 388 k/mm3 (150-375); Red Blood Count 3.48 M/mm3 (4.6-6.20); Red Cell Distribution Width 17.4 % (11.5-14.5); White Blood Count 9.7 K/mm3 (4.5-10.0)
[2023-12-06 10:56] VITALS: BP 120/72; PULSE 91; TEMP 36.6; O2SAT 100
[2023-12-06 10:57] LABS: Anisocytosis 1+; Hypochromasia 1+; Microcytosis 1+ (NORMAL); Platelet Estimate Adequate (Adequate); Schistocytes None Seen
[2023-12-06] MEDS: ACETAMINOPHEN 325 MG TABLET 650 MG PO (11:07)
[2023-12-06] MEDS: diphenhydrAMINE HCl INJ 50 MG/ML VIAL 25 MG IV PUSH (11:08)
[2023-12-06] MEDS: ferumoxytoL 510 MG in SODIUM CHLORIDE 0.9% IV 83 ML 300 MG IVPB (11:19)
[2023-12-06 11:58] LABS: Urine Protein Dipstick 2+ (N)
[2023-12-06] MEDS: HEPARIN SODIUM LOCK FLUSH 500 UNITS/5 ML SYRINGE IV PUSH (12:42)
[2023-12-06 21:44] LABS: Alanine Aminotransferase 12 U/L (6-50); Albumin Level 4.4 g/dL (3.5-5.1); Alkaline Phosphatase 67 U/L (38-126); Anion Gap 12 mmol/L (4-12); Aspartate Amino Transferase 23 U/L (17-59); Bilirubin,Total 0.7 mg/dL (0.2-1.3); Blood Urea Nitrogen 25 mg/dL (9-20); Calcium 9.8 mg/dL (8.4-10.2); Carbon Dioxide 22 mmol/L (22-30); Chloride 102 mmol/L (98-107); Estimated Glomerular Filt Rate > 60; Glucose 128 mg/dL (65-110); Potassium 4.5 mmol/L (3.4-5.0); Sodium 136 mmol/L (137-145)
[2023-12-08 08:27] LABS: Basophils Percent Auto 0.3 % (0.2-1.2); Eosinophils Absolute Auto 0.1 K/mm3 (0-0.3); Hematocrit 29.6 % (42.0-52.0); Hemoglobin 9.2 g/dL (14.0-18.0); Immature Granulocyte Absolute 0.04 K/mm3 (0.00-0.031); Immature Granulocyte Percent A 0.4 % (0-0.5); Lymphocytes Absolute Auto 1.35 K/mm3 (0.9-3.2); Lymphocytes Percent Auto 13.3 % (18.3-44.2); Mean Corpuscular HGB Conc 31.1 g/dl (32-36); Mean Corpuscular Hemoglobin 24.6 pg (26-34); Mean Corpuscular Volume 79.1 fl (80-100); Mean Platelet Volume 8.5 fl (7.4-10.4); Monocytes Absolute Auto 0.6 K/mm3 (0.1-0.6); Platelet Count Result 396 k/mm3 (150-375); Red Blood Count 3.74 M/mm3 (4.6-6.20); Red Cell Distribution Width 17.2 % (11.5-14.5); White Blood Count 10.1 K/mm3 (4.5-10.0)
[2023-12-08 08:31] VITALS: BP 118/74; PULSE 98; TEMP 36.8; O2SAT 99
[2023-12-08] MEDS: diphenhydrAMINE HCl INJ 50 MG/ML VIAL 25 MG IV PUSH (08:56)
[2023-12-08] MEDS: FAMOTIDINE 20 MG/2 ML VIAL IV PUSH (08:56)
[2023-12-08] MEDS: PALONOSETRON HCL 0.25 MG/5 ML VIAL IV PUSH (08:56)
--- NOTE | 2023-12-08 09:01 | PHAR ---
JOLENE SPOKE WITH ABOUT UPRO BEING 2+ TODAY. STILL WANTS PATIENT TO GET AVASTIN TODAY. PLAN IS TO GET UPRO AGAIN NEXT TIME. IF IT IS 3+ NEXT TIME THEY WILL HOLD AVASTIN AND GET A 24 HR URINE TEST.
[2023-12-08] MEDS: dexAMETHasone SOD 4 MG/ML INJ 12 MG in SODIUM CHLORIDE 0.9% IV 100 ML 206 MG IVPB (09:03)
[2023-12-08] MEDS: OXALIPLATIN 170 MG in DEXTROSE 5% IN WATER 216 ML 125 MG IVPB (09:41)
[2023-12-08] MEDS: LEUCOVORIN CALCIUM 800 MG in DEXTROSE 5% IN WATER 210 ML 125 MG IVPB (09:41)
[2023-12-08] MEDS: SODIUM CHLORIDE 0.9% IVPB (11:53)
[2023-12-08] MEDS: BEVACIZUMAB IVPB (11:53)
[2023-12-08] MEDS: FLUOROURACIL 4,800 MG in SODIUM CHLORIDE 0.9% IV 88 ML IVPB (13:56)
[2023-12-08] MEDS: FLUOROURACIL 1,000 MG/20 ML VIAL 800 MG IV PUSH (13:56)
[2023-12-08 14:07] VITALS: BP 121/76
[2023-12-10 12:06] VITALS: BP 133/78; PULSE 82; RESP 16; TEMP 36.3; O2SAT 100
[2023-12-10] MEDS: HEPARIN SODIUM LOCK FLUSH 500 UNITS/5 ML SYRINGE IV PUSH (12:18)
[2023-12-13 09:44] VITALS: BP 134/80; PULSE 91; TEMP 36.8; O2SAT 100
[2023-12-13] MEDS: ACETAMINOPHEN 325 MG TABLET 650 MG PO (09:59)
[2023-12-13] MEDS: diphenhydrAMINE HCl INJ 50 MG/ML VIAL 25 MG IV PUSH (10:00)
[2023-12-13] MEDS: ferumoxytoL 510 MG in SODIUM CHLORIDE 0.9% IV 83 ML 300 MG IVPB (10:06)
[2023-12-13 10:59] VITALS: BP 122/76
[2023-12-13] MEDS: HEPARIN SODIUM LOCK FLUSH 500 UNITS/5 ML SYRINGE IV PUSH (11:02)
[2023-12-22 08:26] LABS: Basophils Percent Auto 0.5 % (0.2-1.2); Eosinophils Absolute Auto 0.1 K/mm3 (0-0.3); Hematocrit 29.3 % (42.0-52.0); Hemoglobin 9.4 g/dL (14.0-18.0); Immature Granulocyte Absolute 0.02 K/mm3 (0.00-0.031); Immature Granulocyte Percent A 0.3 % (0-0.5); Lymphocytes Absolute Auto 1.32 K/mm3 (0.9-3.2); Lymphocytes Percent Auto 20.7 % (18.3-44.2); Mean Corpuscular HGB Conc 32.1 g/dl (32-36); Mean Corpuscular Hemoglobin 26.1 pg (26-34); Mean Corpuscular Volume 81.4 fl (80-100); Mean Platelet Volume 8.6 fl (7.4-10.4); Monocytes Absolute Auto 0.5 K/mm3 (0.1-0.6); Neutrophils Absolute Auto 4.4 K/mm3 (1.3-6.7); Neutrophils Percent Auto 69.5 % (45.5-73.1); Platelet Count Result 237 k/mm3 (150-375); Red Cell Distribution Width 19.8 % (11.5-14.5); White Blood Count 6.4 K/mm3 (4.5-10.0)
[2023-12-22 08:33] LABS: Blood Urea Nitrogen 23 mg/dL (8-26); Carbon Dioxide 24 mmol/L (22-30); Chloride 100 mmol/L (98-109); Estimated Glomerular Filt Rate > 60; Glucose 239 mg/dL (70-105); Ionized Calcium (POC) 1.18 mmol/L (1.11-1.31); Sodium 138 mmol/L (138-146)
[2023-12-22 09:06] VITALS: BP 127/81; PULSE 85; RESP 18; TEMP 36.4; O2SAT 100
[2023-12-22 09:15] LABS: Urine Protein Dipstick 1+ (N)
[2023-12-22] MEDS: diphenhydrAMINE HCl INJ 50 MG/ML VIAL 25 MG IV PUSH (09:21)
[2023-12-22] MEDS: PALONOSETRON HCL 0.25 MG/5 ML VIAL IV PUSH (09:21)
[2023-12-22] MEDS: FAMOTIDINE 20 MG/2 ML VIAL IV PUSH (09:22)
[2023-12-22] MEDS: dexAMETHasone SOD 4 MG/ML INJ 12 MG in SODIUM CHLORIDE 0.9% IV 100 ML 206 MG IVPB (09:22)
[2023-12-22] MEDS: LEUCOVORIN CALCIUM 800 MG in DEXTROSE 5% IN WATER 210 ML 125 MG IVPB (10:12)
[2023-12-22] MEDS: OXALIPLATIN 170 MG in DEXTROSE 5% IN WATER 216 ML 125 MG IVPB (10:12)
[2023-12-22 10:18] LABS: Alanine Aminotransferase 16 U/L (6-50); Albumin Level 4.2 g/dL (3.5-5.1); Alkaline Phosphatase 90 U/L (38-126); Anion Gap 10 mmol/L (4-12); Aspartate Amino Transferase 18 U/L (17-59); Bilirubin,Total 0.5 mg/dL (0.2-1.3); Blood Urea Nitrogen 25 mg/dL (9-20); Calcium 9.4 mg/dL (8.4-10.2); Carbon Dioxide 25 mmol/L (22-30); Chloride 103 mmol/L (98-107); Estimated Glomerular Filt Rate > 60; Glucose 232 mg/dL (65-110); Potassium 4.1 mmol/L (3.4-5.0); Sodium 138 mmol/L (137-145)
[2023-12-22] MEDS: BEVACIZUMAB IVPB (12:42)
[2023-12-22] MEDS: SODIUM CHLORIDE 0.9% IVPB (12:42)
[2023-12-22 13:44] VITALS: BP 129/80
[2023-12-22] MEDS: FLUOROURACIL 1,000 MG/20 ML VIAL 800 MG IV PUSH (13:57)
[2023-12-22] MEDS: FLUOROURACIL 4,800 MG in SODIUM CHLORIDE 0.9% IV 88 ML IVPB (13:57)
--- NOTE | 2023-12-24 12:27 | PC.NURSE ---
Patient here for pump disconnect.
[2023-12-24 12:30] VITALS: BP 136/86; PULSE 91; TEMP 37.2; O2SAT 100
[2023-12-24] MEDS: HEPARIN SODIUM LOCK FLUSH 500 UNITS/5 ML SYRINGE IV PUSH (12:38)
[2024-01-05 08:16] LABS: Urine Protein Dipstick 2+ (N)
[2024-01-05 08:40] LABS: Basophils Percent Auto 0.3 % (0.2-1.2); Eosinophils Absolute Auto 0.1 K/mm3 (0-0.3); Eosinophils Percent Auto 2.1 % (0-4.4); Hematocrit 31.9 % (42.0-52.0); Hemoglobin 10.1 g/dL (14.0-18.0); Immature Granulocyte Absolute 0.02 K/mm3 (0.00-0.031); Immature Granulocyte Percent A 0.3 % (0-0.5); Lymphocytes Absolute Auto 1.26 K/mm3 (0.9-3.2); Mean Corpuscular HGB Conc 31.7 g/dl (32-36); Mean Corpuscular Hemoglobin 26.2 pg (26-34); Mean Corpuscular Volume 82.6 fl (80-100); Mean Platelet Volume 8.8 fl (7.4-10.4); Monocytes Absolute Auto 0.5 K/mm3 (0.1-0.6); Monocytes Percent Auto 8.9 % (2.6-8.5); Neutrophils Absolute Auto 3.8 K/mm3 (1.3-6.7); Neutrophils Percent Auto 66.4 % (45.5-73.1); Platelet Count Result 237 k/mm3 (150-375); Red Blood Count 3.86 M/mm3 (4.6-6.20); White Blood Count 5.7 K/mm3 (4.5-10.0)
[2024-01-05 08:48] LABS: Blood Urea Nitrogen 19 mg/dL (8-26); Carbon Dioxide 25 mmol/L (22-30); Chloride 100 mmol/L (98-109); Estimated Glomerular Filt Rate > 60; Glucose 181 mg/dL (70-105); Potassium 4.3 mmol/L (3.5-4.9); Sodium 137 mmol/L (138-146)
[2024-01-05 09:22] VITALS: BP 132/86; PULSE 91; TEMP 36.5; O2SAT 100
[2024-01-05] MEDS: FAMOTIDINE 20 MG/2 ML VIAL IV PUSH (09:49)
[2024-01-05] MEDS: diphenhydrAMINE HCl INJ 50 MG/ML VIAL 25 MG IV PUSH (09:49)
[2024-01-05] MEDS: PALONOSETRON HCL 0.25 MG/5 ML VIAL IV PUSH (09:49)
[2024-01-05] MEDS: dexAMETHasone SOD 4 MG/ML INJ 12 MG in SODIUM CHLORIDE 0.9% IV 100 ML 206 MG IVPB (10:02)
[2024-01-05 10:27] LABS: Alanine Aminotransferase 15 U/L (6-50); Alkaline Phosphatase 83 U/L (38-126); Anion Gap 9 mmol/L (4-12); Aspartate Amino Transferase 20 U/L (17-59); Bilirubin,Total 0.7 mg/dL (0.2-1.3); Blood Urea Nitrogen 21 mg/dL (9-20); Carbon Dioxide 25 mmol/L (22-30); Chloride 102 mmol/L (98-107); Estimated Glomerular Filt Rate > 60; Glucose 177 mg/dL (65-110); Potassium 4.3 mmol/L (3.4-5.0); Sodium 136 mmol/L (137-145)
[2024-01-05] MEDS: OXALIPLATIN 170 MG in DEXTROSE 5% IN WATER 216 ML 125 MG IVPB (10:49)
[2024-01-05] MEDS: LEUCOVORIN CALCIUM 800 MG in DEXTROSE 5% IN WATER 210 ML 125 MG IVPB (10:52)
[2024-01-05] MEDS: SODIUM CHLORIDE 0.9% IVPB (13:03)
[2024-01-05] MEDS: BEVACIZUMAB IVPB (13:03)
[2024-01-05 13:52] VITALS: BP 148/90
[2024-01-05] MEDS: FLUOROURACIL 4,800 MG in SODIUM CHLORIDE 0.9% IV 88 ML IVPB (14:01)
[2024-01-05] MEDS: FLUOROURACIL 1,000 MG/20 ML VIAL 800 MG IV PUSH (14:01)
[2024-01-07 12:34] VITALS: BP 134/89; PULSE 87; TEMP 36.6; O2SAT 98
[2024-01-07] MEDS: HEPARIN SODIUM LOCK FLUSH 500 UNITS/5 ML SYRINGE IV PUSH (12:46)
--- NOTE | 2024-01-07 13:56 | PC.NURSE ---
Home infusion pump disconnected
[2024-01-19 09:00] LABS: Basophils Percent Auto 0.6 % (0.2-1.2); Eosinophils Absolute Auto 0.1 K/mm3 (0-0.3); Eosinophils Percent Auto 2.4 % (0-4.4); Hematocrit 31.7 % (42.0-52.0); Hemoglobin 10.1 g/dL (14.0-18.0); Immature Granulocyte Absolute 0.02 K/mm3 (0.00-0.031); Immature Granulocyte Percent A 0.4 % (0-0.5); Lymphocytes Absolute Auto 1.39 K/mm3 (0.9-3.2); Lymphocytes Percent Auto 25.7 % (18.3-44.2); Mean Corpuscular HGB Conc 31.9 g/dl (32-36); Mean Corpuscular Hemoglobin 26.5 pg (26-34); Mean Corpuscular Volume 83.2 fl (80-100); Mean Platelet Volume 8.7 fl (7.4-10.4); Monocytes Absolute Auto 0.4 K/mm3 (0.1-0.6); Monocytes Percent Auto 7.6 % (2.6-8.5); Neutrophils Absolute Auto 3.4 K/mm3 (1.3-6.7); Neutrophils Percent Auto 63.3 % (45.5-73.1); Platelet Count Result 193 k/mm3 (150-375); Red Blood Count 3.81 M/mm3 (4.6-6.20); Red Cell Distribution Width 19.5 % (11.5-14.5); White Blood Count 5.4 K/mm3 (4.5-10.0)
[2024-01-19 09:02] LABS: Urine Protein Dipstick 1+ (N)
[2024-01-19 09:11] LABS: Blood Urea Nitrogen 24 mg/dL (8-26); Carbon Dioxide 25 mmol/L (22-30); Chloride 104 mmol/L (98-109); Estimated Glomerular Filt Rate > 60; Glucose 197 mg/dL (70-105); Ionized Calcium (POC) 1.21 mmol/L (1.11-1.31); Potassium 4.1 mmol/L (3.5-4.9); Sodium 139 mmol/L (138-146)
[2024-01-19 09:22] VITALS: BP 125/92; PULSE 90; O2SAT 98
[2024-01-19] MEDS: FAMOTIDINE 20 MG/2 ML VIAL IV PUSH (09:54)
[2024-01-19] MEDS: diphenhydrAMINE HCl INJ 50 MG/ML VIAL 25 MG IV PUSH (09:54)
[2024-01-19] MEDS: PALONOSETRON HCL 0.25 MG/5 ML VIAL IV PUSH (09:54)
[2024-01-19 10:09] LABS: Alanine Aminotransferase 11 U/L (6-50); Alkaline Phosphatase 83 U/L (38-126); Anion Gap 11 mmol/L (4-12); Aspartate Amino Transferase 16 U/L (17-59); Bilirubin,Total 0.6 mg/dL (0.2-1.3); Blood Urea Nitrogen 24 mg/dL (9-20); Calcium 8.9 mg/dL (8.4-10.2); Carbon Dioxide 21 mmol/L (22-30); Chloride 106 mmol/L (98-107); Estimated Glomerular Filt Rate > 60; Glucose 194 mg/dL (65-110); Potassium 4.1 mmol/L (3.4-5.0); Sodium 138 mmol/L (137-145)
[2024-01-19] MEDS: dexAMETHasone SOD 4 MG/ML INJ 12 MG in SODIUM CHLORIDE 0.9% IV 100 ML 206 MG IVPB (10:09)
[2024-01-19] MEDS: OXALIPLATIN 170 MG in DEXTROSE 5% IN WATER 216 ML 125 MG IVPB (10:51)
[2024-01-19] MEDS: LEUCOVORIN CALCIUM 800 MG in DEXTROSE 5% IN WATER 210 ML 125 MG IVPB (10:51)
[2024-01-19] MEDS: BEVACIZUMAB IVPB (13:13)
[2024-01-19] MEDS: SODIUM CHLORIDE 0.9% IVPB (13:13)
[2024-01-19 13:32] VITALS: BP 145/91
[2024-01-19] MEDS: FLUOROURACIL 1,000 MG/20 ML VIAL 800 MG IV PUSH (13:56)
[2024-01-19] MEDS: FLUOROURACIL 4,800 MG in SODIUM CHLORIDE 0.9% IV 88 ML IVPB (13:56)
[2024-01-21] MEDS: HEPARIN SODIUM LOCK FLUSH 500 UNITS/5 ML SYRINGE IV PUSH (12:22)
[2024-01-21 12:26] VITALS: BP 137/84; PULSE 88; TEMP 36.6; O2SAT 100
--- NOTE | 2024-01-31 07:40 | PC.NURSE ---
Patient was here for pump disconnect on 01/21/24.
[2024-02-02 08:30] LABS: Urine Protein Dipstick 1+ (N)
[2024-02-02 08:48] LABS: Basophils Percent Auto 0.3 % (0.2-1.2); Eosinophils Absolute Auto 0.1 K/mm3 (0-0.3); Eosinophils Percent Auto 1.6 % (0-4.4); Hematocrit 33.2 % (42.0-52.0); Hemoglobin 11.2 g/dL (14.0-18.0); Immature Granulocyte Absolute 0.02 K/mm3 (0.00-0.031); Immature Granulocyte Percent A 0.3 % (0-0.5); Lymphocytes Absolute Auto 1.93 K/mm3 (0.9-3.2); Lymphocytes Percent Auto 26.3 % (18.3-44.2); Mean Corpuscular HGB Conc 33.7 g/dl (32-36); Mean Corpuscular Hemoglobin 27.5 pg (26-34); Mean Corpuscular Volume 81.4 fl (80-100); Mean Platelet Volume 9.1 fl (7.4-10.4); Monocytes Absolute Auto 0.7 K/mm3 (0.1-0.6); Monocytes Percent Auto 9.4 % (2.6-8.5); Neutrophils Absolute Auto 4.6 K/mm3 (1.3-6.7); Neutrophils Percent Auto 62.1 % (45.5-73.1); Platelet Count Result 191 k/mm3 (150-375); Red Blood Count 4.08 M/mm3 (4.6-6.20); Red Cell Distribution Width 19.8 % (11.5-14.5); White Blood Count 7.3 K/mm3 (4.5-10.0)
[2024-02-02 08:55] LABS: Blood Urea Nitrogen 27 mg/dL (8-26); Carbon Dioxide 28 mmol/L (22-30); Chloride 99 mmol/L (98-109); Estimated Glomerular Filt Rate > 60; Glucose 189 mg/dL (70-105); Ionized Calcium (POC) 1.21 mmol/L (1.11-1.31); Sodium 137 mmol/L (138-146)
[2024-02-02 09:56] VITALS: BP 124/89; PULSE 93; TEMP 36.2; O2SAT 97
[2024-02-02] MEDS: FAMOTIDINE 20 MG/2 ML VIAL IV PUSH (10:12)
[2024-02-02] MEDS: diphenhydrAMINE HCl INJ 50 MG/ML VIAL 25 MG IV PUSH (10:12)
[2024-02-02] MEDS: PALONOSETRON HCL 0.25 MG/5 ML VIAL IV PUSH (10:12)
[2024-02-02] MEDS: dexAMETHasone SOD 4 MG/ML INJ 12 MG in SODIUM CHLORIDE 0.9% IV 100 ML 206 MG IVPB (10:20)
[2024-02-02 10:39] LABS: Alanine Aminotransferase 13 U/L (6-50); Albumin Level 4.1 g/dL (3.5-5.1); Alkaline Phosphatase 108 U/L (38-126); Anion Gap 10 mmol/L (4-12); Aspartate Amino Transferase 18 U/L (17-59); Bilirubin,Total 0.7 mg/dL (0.2-1.3); Blood Urea Nitrogen 29 mg/dL (9-20); Calcium 9.1 mg/dL (8.4-10.2); Carbon Dioxide 23 mmol/L (22-30); Chloride 102 mmol/L (98-107); Estimated Glomerular Filt Rate > 60; Glucose 181 mg/dL (65-110); Potassium 4.1 mmol/L (3.4-5.0); Sodium 135 mmol/L (137-145)
[2024-02-02] MEDS: LEUCOVORIN CALCIUM 800 MG in DEXTROSE 5% IN WATER 210 ML 125 MG IVPB (10:59)
[2024-02-02] MEDS: OXALIPLATIN 170 MG in DEXTROSE 5% IN WATER 216 ML 125 MG IVPB (11:00)
[2024-02-02 11:10] LABS: Carcinoembryonic Antigen 12.8 ng/mL (0.0-3.0)
[2024-02-02] MEDS: SODIUM CHLORIDE 0.9% IVPB (13:17)
[2024-02-02] MEDS: BEVACIZUMAB IVPB (13:17)
[2024-02-02] MEDS: FLUOROURACIL 1,000 MG/20 ML VIAL 800 MG IV PUSH (14:01)
[2024-02-02] MEDS: FLUOROURACIL 4,800 MG in SODIUM CHLORIDE 0.9% IV 88 ML IVPB (14:01)
--- NOTE | 2024-02-04 12:01 | PC.NURSE ---
Home infusion pump removed
[2024-02-04 12:02] VITALS: BP 140/80; PULSE 98; TEMP 36.8; O2SAT 99
[2024-02-04] MEDS: HEPARIN SODIUM LOCK FLUSH 500 UNITS/5 ML SYRINGE IV PUSH (12:08)
[2024-02-16 08:52] LABS: Urine Protein Dipstick 1+ (N)
[2024-02-16 09:03] LABS: Basophils Percent Auto 0.4 % (0.2-1.2); Eosinophils Absolute Auto 0.1 K/mm3 (0-0.3); Eosinophils Percent Auto 2.5 % (0-4.4); Hematocrit 32.6 % (42.0-52.0); Hemoglobin 10.8 g/dL (14.0-18.0); Immature Granulocyte Absolute 0.02 K/mm3 (0.00-0.031); Immature Granulocyte Percent A 0.4 % (0-0.5); Lymphocytes Absolute Auto 1.32 K/mm3 (0.9-3.2); Lymphocytes Percent Auto 23.6 % (18.3-44.2); Mean Corpuscular HGB Conc 33.1 g/dl (32-36); Mean Corpuscular Hemoglobin 27.6 pg (26-34); Mean Corpuscular Volume 83.4 fl (80-100); Mean Platelet Volume 9.2 fl (7.4-10.4); Monocytes Absolute Auto 0.4 K/mm3 (0.1-0.6); Monocytes Percent Auto 7.9 % (2.6-8.5); Neutrophils Absolute Auto 3.7 K/mm3 (1.3-6.7); Neutrophils Percent Auto 65.2 % (45.5-73.1); Platelet Count Result 169 k/mm3 (150-375); Red Blood Count 3.91 M/mm3 (4.6-6.20); Red Cell Distribution Width 19.8 % (11.5-14.5); White Blood Count 5.6 K/mm3 (4.5-10.0)
[2024-02-16 09:08] LABS: Blood Urea Nitrogen 24 mg/dL (8-26); Carbon Dioxide 24 mmol/L (22-30); Chloride 101 mmol/L (98-109); Estimated Glomerular Filt Rate > 60; Glucose 224 mg/dL (70-105); Ionized Calcium (POC) 1.17 mmol/L (1.11-1.31); Potassium 4.6 mmol/L (3.5-4.9); Sodium 137 mmol/L (138-146)
[2024-02-16 10:01] VITALS: BP 138/89; PULSE 92; TEMP 36.7; O2SAT 100
[2024-02-16] MEDS: PALONOSETRON HCL 0.25 MG/5 ML VIAL IV PUSH (10:28)
[2024-02-16] MEDS: FAMOTIDINE 20 MG/2 ML VIAL IV PUSH (10:28)
[2024-02-16] MEDS: diphenhydrAMINE HCl INJ 50 MG/ML VIAL 25 MG IV PUSH (10:28)
[2024-02-16] MEDS: dexAMETHasone SOD 4 MG/ML INJ 12 MG in SODIUM CHLORIDE 0.9% IV 100 ML 206 MG IVPB (10:39)
[2024-02-16] MEDS: OXALIPLATIN 170 MG in DEXTROSE 5% IN WATER 216 ML 125 MG IVPB (11:16)
[2024-02-16] MEDS: LEUCOVORIN CALCIUM 800 MG in DEXTROSE 5% IN WATER 210 ML 125 MG IVPB (11:16)
[2024-02-16 12:16] VITALS: BP 147/77; PULSE 94; O2SAT 93
[2024-02-16] MEDS: HYDROCORTISONE SODIUM SUCCINATE 100 MG/2 ML VIAL IV PUSH (12:21)
--- NOTE | 2024-02-16 12:22 | PC.NURSE ---
Addendum entered by Sylvie Winters RN 02/16/24 12:47: Resume Oxaliplatin and Leucovorin. Oxygen sat 99%. Patient without shaking, itching and redness. Addendum entered by Sylvie Winters RN 02/16/24 12:26: Oxaliplatin and leucovorin stopped at 1215. Original Note: At 1215, patient had shaking, itching and redness to the arms, face and chest. Vital signs 92% oxygen sat, 88 heart rate and blood 147/77. Solucortef given. At 1223, blood pressure 129/5, pulse 88 and oxygen level 94.
[2024-02-16 12:45] VITALS: BP 148/88; PULSE 87; O2SAT 98
[2024-02-16 13:16] LABS: Alanine Aminotransferase 14 U/L (6-50); Albumin Level 3.8 g/dL (3.5-5.1); Alkaline Phosphatase 77 U/L (38-126); Anion Gap 8 mmol/L (4-12); Aspartate Amino Transferase 19 U/L (17-59); Bilirubin,Total 0.8 mg/dL (0.2-1.3); Blood Urea Nitrogen 24 mg/dL (9-20); Calcium 8.8 mg/dL (8.4-10.2); Carbon Dioxide 25 mmol/L (22-30); Chloride 103 mmol/L (98-107); Estimated Glomerular Filt Rate > 60; Glucose 215 mg/dL (65-110); Potassium 4.7 mmol/L (3.4-5.0); Sodium 136 mmol/L (137-145)
[2024-02-16] MEDS: SODIUM CHLORIDE 0.9% IVPB (14:08)
[2024-02-16] MEDS: BEVACIZUMAB IVPB (14:08)
[2024-02-16 14:40] VITALS: BP 129/85
[2024-02-16] MEDS: FLUOROURACIL 1,000 MG/20 ML VIAL 800 MG IV PUSH (14:54)
[2024-02-16] MEDS: FLUOROURACIL 4,800 MG in SODIUM CHLORIDE 0.9% IV 88 ML IVPB (14:54)
--- NOTE | 2024-02-17 15:37 | PC.NURSE ---
Patient feels good today. Patient did have infusion reaction today.
[2024-02-18 12:57] VITALS: BP 130/79; PULSE 95; TEMP 36.8; O2SAT 100
[2024-02-18] MEDS: HEPARIN SODIUM LOCK FLUSH 500 UNITS/5 ML SYRINGE IV PUSH (13:00)
--- NOTE | 2024-02-18 13:16 | PC.NURSE ---
home infusion pump removed
[2024-03-01 09:42] LABS: Urine Protein Dipstick 2+ (N)
[2024-03-01 09:46] LABS: Basophils Percent Auto 0.3 % (0.2-1.2); Eosinophils Absolute Auto 0.1 K/mm3 (0-0.3); Eosinophils Percent Auto 2.1 % (0-4.4); Hematocrit 34.5 % (42.0-52.0); Hemoglobin 11.7 g/dL (14.0-18.0); Immature Granulocyte Absolute 0.02 K/mm3 (0.00-0.031); Immature Granulocyte Percent A 0.3 % (0-0.5); Lymphocytes Absolute Auto 1.77 K/mm3 (0.9-3.2); Lymphocytes Percent Auto 26.5 % (18.3-44.2); Mean Corpuscular HGB Conc 33.9 g/dl (32-36); Mean Corpuscular Hemoglobin 28.5 pg (26-34); Mean Corpuscular Volume 84.1 fl (80-100); Mean Platelet Volume 8.6 fl (7.4-10.4); Monocytes Absolute Auto 0.5 K/mm3 (0.1-0.6); Monocytes Percent Auto 7.9 % (2.6-8.5); Neutrophils Absolute Auto 4.2 K/mm3 (1.3-6.7); Neutrophils Percent Auto 62.9 % (45.5-73.1); Platelet Count Result 181 k/mm3 (150-375); Red Cell Distribution Width 19.8 % (11.5-14.5); White Blood Count 6.7 K/mm3 (4.5-10.0)
[2024-03-01 09:51] LABS: Blood Urea Nitrogen 25 mg/dL (8-26); Carbon Dioxide 21 mmol/L (22-30); Chloride 102 mmol/L (98-109); Estimated Glomerular Filt Rate > 60; Glucose 326 mg/dL (70-105); Ionized Calcium (POC) 1.17 mmol/L (1.11-1.31); Potassium 4.1 mmol/L (3.5-4.9); Sodium 136 mmol/L (138-146)
[2024-03-01 10:31] VITALS: BP 127/88; PULSE 94; TEMP 36.4; O2SAT 99
[2024-03-01] MEDS: DEXAMETHASONE SOD IVPB (10:54)
[2024-03-01] MEDS: SODIUM CHLORIDE 0.9% IVPB ×2 (10:54→14:00)
[2024-03-01] MEDS: PALONOSETRON HCL 0.25 MG/5 ML VIAL IV PUSH (10:55)
[2024-03-01] MEDS: FAMOTIDINE 20 MG/2 ML VIAL IV PUSH (10:55)
[2024-03-01] MEDS: diphenhydrAMINE HCl INJ 50 MG/ML VIAL 25 MG IV PUSH (10:56)
[2024-03-01] MEDS: OXALIPLATIN 170 MG in DEXTROSE 5% IN WATER 216 ML 125 MG IVPB (11:37)
[2024-03-01] MEDS: LEUCOVORIN CALCIUM 800 MG in DEXTROSE 5% IN WATER 210 ML 125 MG IVPB (11:37)
--- NOTE | 2024-03-01 11:57 | PC.NURSE ---
Oxaliplatin and Leucovorin started now at 1158.
[2024-03-01 12:22] LABS: Alanine Aminotransferase 17 U/L (6-50); Albumin Level 4.3 g/dL (3.5-5.1); Alkaline Phosphatase 86 U/L (38-126); Anion Gap 15 mmol/L (4-12); Aspartate Amino Transferase 21 U/L (17-59); Bilirubin,Total 1.1 mg/dL (0.2-1.3); Blood Urea Nitrogen 26 mg/dL (9-20); Calcium 8.8 mg/dL (8.4-10.2); Carbon Dioxide 20 mmol/L (22-30); Chloride 101 mmol/L (98-107); Estimated Glomerular Filt Rate > 60; Glucose 318 mg/dL (65-110); Potassium 4.2 mmol/L (3.4-5.0); Sodium 136 mmol/L (137-145)
[2024-03-01 12:52] LABS: Carcinoembryonic Antigen 10.6 ng/mL (0.0-3.0)
[2024-03-01] MEDS: BEVACIZUMAB IVPB (14:00)
[2024-03-01] MEDS: FLUOROURACIL 4,800 MG in SODIUM CHLORIDE 0.9% IV 88 ML IVPB (14:42)
[2024-03-01] MEDS: FLUOROURACIL 1,000 MG/20 ML VIAL 800 MG IV PUSH (14:42)
[2024-03-01 14:44] VITALS: BP 125/82
[2024-03-03 12:45] VITALS: BP 131/80; PULSE 94; TEMP 36.8; O2SAT 100
--- NOTE | 2024-03-03 12:48 | PC.NURSE ---
Patient here for pump removal
[2024-03-03] MEDS: HEPARIN SODIUM LOCK FLUSH 500 UNITS/5 ML SYRINGE IV PUSH (12:56)
[2024-03-15 08:47] LABS: Urine Protein Dipstick 2+ (N)
[2024-03-15 09:02] LABS: Basophils Percent Auto 0.3 % (0.2-1.2); Eosinophils Absolute Auto 0.2 K/mm3 (0-0.3); Eosinophils Percent Auto 2.6 % (0-4.4); Hematocrit 33.8 % (42.0-52.0); Hemoglobin 11.3 g/dL (14.0-18.0); Immature Granulocyte Absolute 0.01 K/mm3 (0.00-0.031); Immature Granulocyte Percent A 0.2 % (0-0.5); Lymphocytes Absolute Auto 1.61 K/mm3 (0.9-3.2); Lymphocytes Percent Auto 27.9 % (18.3-44.2); Mean Corpuscular HGB Conc 33.4 g/dl (32-36); Mean Corpuscular Volume 86.9 fl (80-100); Mean Platelet Volume 8.5 fl (7.4-10.4); Monocytes Absolute Auto 0.5 K/mm3 (0.1-0.6); Monocytes Percent Auto 9.2 % (2.6-8.5); Neutrophils Absolute Auto 3.5 K/mm3 (1.3-6.7); Neutrophils Percent Auto 59.8 % (45.5-73.1); Platelet Count Result 124 k/mm3 (150-375); Red Blood Count 3.89 M/mm3 (4.6-6.20); Red Cell Distribution Width 19.7 % (11.5-14.5); White Blood Count 5.8 K/mm3 (4.5-10.0)
[2024-03-15 09:06] LABS: Blood Urea Nitrogen 22 mg/dL (8-26); Carbon Dioxide 23 mmol/L (22-30); Chloride 99 mmol/L (98-109); Estimated Glomerular Filt Rate > 60; Glucose 178 mg/dL (70-105); Ionized Calcium (POC) 1.21 mmol/L (1.11-1.31); Potassium 4.2 mmol/L (3.5-4.9); Sodium 136 mmol/L (138-146)
[2024-03-15 09:53] VITALS: BP 133/92; PULSE 80; TEMP 36.8; O2SAT 100
[2024-03-15] MEDS: diphenhydrAMINE HCl INJ 50 MG/ML VIAL 25 MG IV PUSH (10:17)
[2024-03-15] MEDS: PALONOSETRON HCL 0.25 MG/5 ML VIAL IV PUSH (10:17)
[2024-03-15] MEDS: FAMOTIDINE 20 MG/2 ML VIAL IV PUSH (10:17)
[2024-03-15] MEDS: dexAMETHasone SOD 4 MG/ML INJ 12 MG in SODIUM CHLORIDE 0.9% IV 100 ML 206 MG IVPB (10:23)
[2024-03-15 10:43] LABS: Alanine Aminotransferase 14 U/L (6-50); Albumin Level 4.1 g/dL (3.5-5.1); Alkaline Phosphatase 73 U/L (38-126); Anion Gap 13 mmol/L (4-12); Aspartate Amino Transferase 20 U/L (17-59); Blood Urea Nitrogen 23 mg/dL (9-20); Calcium 8.8 mg/dL (8.4-10.2); Carbon Dioxide 23 mmol/L (22-30); Chloride 98 mmol/L (98-107); Estimated Glomerular Filt Rate > 60; Glucose 170 mg/dL (65-110); Potassium 4.3 mmol/L (3.4-5.0); Sodium 134 mmol/L (137-145)
[2024-03-15] MEDS: OXALIPLATIN 170 MG in DEXTROSE 5% IN WATER 216 ML 125 MG IVPB (11:04)
[2024-03-15] MEDS: LEUCOVORIN CALCIUM 800 MG in DEXTROSE 5% IN WATER 210 ML 125 MG IVPB (11:07)
[2024-03-15] MEDS: BEVACIZUMAB IVPB (13:19)
[2024-03-15] MEDS: SODIUM CHLORIDE 0.9% IVPB (13:19)
[2024-03-15 13:56] VITALS: BP 137/89
[2024-03-15] MEDS: FLUOROURACIL 1,000 MG/20 ML VIAL 800 MG IV PUSH (14:23)
[2024-03-15] MEDS: FLUOROURACIL 4,800 MG in SODIUM CHLORIDE 0.9% IV 88 ML IVPB (14:23)
[2024-03-17] MEDS: HEPARIN SODIUM LOCK FLUSH 500 UNITS/5 ML SYRINGE IV PUSH (12:31)
--- NOTE | 2024-03-17 12:32 | PC.NURSE ---
Patient here for pump disconnect, access removed, dressing applied
[2024-03-29 08:38] LABS: Urine Protein Dipstick 2+ (N)
[2024-03-29 08:48] LABS: Basophils Percent Auto 0.3 % (0.2-1.2); Eosinophils Absolute Auto 0.1 K/mm3 (0-0.3); Eosinophils Percent Auto 2.3 % (0-4.4); Hematocrit 33.3 % (42.0-52.0); Hemoglobin 11.3 g/dL (14.0-18.0); Immature Granulocyte Absolute 0.01 K/mm3 (0.00-0.031); Immature Granulocyte Percent A 0.2 % (0-0.5); Lymphocytes Absolute Auto 1.69 K/mm3 (0.9-3.2); Lymphocytes Percent Auto 27.9 % (18.3-44.2); Mean Corpuscular HGB Conc 33.9 g/dl (32-36); Mean Corpuscular Hemoglobin 29.5 pg (26-34); Mean Corpuscular Volume 86.9 fl (80-100); Mean Platelet Volume 8.8 fl (7.4-10.4); Monocytes Absolute Auto 0.7 K/mm3 (0.1-0.6); Monocytes Percent Auto 11.4 % (2.6-8.5); Neutrophils Absolute Auto 3.5 K/mm3 (1.3-6.7); Neutrophils Percent Auto 57.9 % (45.5-73.1); Platelet Count Result 155 k/mm3 (150-375); Red Blood Count 3.83 M/mm3 (4.6-6.20); Red Cell Distribution Width 18.6 % (11.5-14.5); White Blood Count 6.1 K/mm3 (4.5-10.0)
[2024-03-29 08:53] LABS: Blood Urea Nitrogen 29 mg/dL (8-26); Carbon Dioxide 27 mmol/L (22-30); Chloride 101 mmol/L (98-109); Estimated Glomerular Filt Rate > 60; Glucose 147 mg/dL (70-105); Potassium 4.3 mmol/L (3.5-4.9); Sodium 138 mmol/L (138-146)
[2024-03-29 09:13] VITALS: BP 118/82; PULSE 87; TEMP 36.6; O2SAT 100
[2024-03-29] MEDS: PALONOSETRON HCL 0.25 MG/5 ML VIAL IV PUSH (09:35)
[2024-03-29] MEDS: FAMOTIDINE 20 MG/2 ML VIAL IV PUSH (09:35)
[2024-03-29] MEDS: diphenhydrAMINE HCl INJ 50 MG/ML VIAL 25 MG IV PUSH (09:36)
[2024-03-29] MEDS: dexAMETHasone SOD 4 MG/ML INJ 12 MG in SODIUM CHLORIDE 0.9% IV 100 ML 206 MG IVPB (09:48)
[2024-03-29 10:25] LABS: Alanine Aminotransferase 15 U/L (6-50); Albumin Level 4.2 g/dL (3.5-5.1); Alkaline Phosphatase 72 U/L (38-126); Anion Gap 13 mmol/L (4-12); Aspartate Amino Transferase 20 U/L (17-59); Bilirubin,Total 1.4 mg/dL (0.2-1.3); Blood Urea Nitrogen 31 mg/dL (9-20); Carbon Dioxide 24 mmol/L (22-30); Chloride 98 mmol/L (98-107); Estimated Glomerular Filt Rate > 60; Glucose 141 mg/dL (65-110); Potassium 4.3 mmol/L (3.4-5.0); Sodium 135 mmol/L (137-145)
[2024-03-29] MEDS: LEUCOVORIN CALCIUM 800 MG in DEXTROSE 5% IN WATER 210 ML 125 MG IVPB (10:26)
[2024-03-29] MEDS: OXALIPLATIN 170 MG in DEXTROSE 5% IN WATER 216 ML 125 MG IVPB (10:26)
[2024-03-29] MEDS: SODIUM CHLORIDE 0.9% IVPB (12:33)
[2024-03-29] MEDS: BEVACIZUMAB IVPB (12:33)
[2024-03-29 13:10] VITALS: BP 131/90
[2024-03-29] MEDS: FLUOROURACIL 4,800 MG in SODIUM CHLORIDE 0.9% IV 88 ML IVPB (13:18)
[2024-03-29] MEDS: FLUOROURACIL 1,000 MG/20 ML VIAL 800 MG IV PUSH (13:18)
[2024-03-31 11:24] VITALS: BP 116/72; PULSE 92; RESP 16; TEMP 36.1; O2SAT 100
[2024-03-31] MEDS: HEPARIN SODIUM LOCK FLUSH 500 UNITS/5 ML SYRINGE IV PUSH (11:28)
[2024-04-12 08:42] LABS: Basophils Percent Auto 0.3 % (0.2-1.2); Eosinophils Absolute Auto 0.2 K/mm3 (0-0.3); Eosinophils Percent Auto 2.7 % (0-4.4); Hematocrit 32.6 % (42.0-52.0); Hemoglobin 11.1 g/dL (14.0-18.0); Immature Granulocyte Absolute 0.01 K/mm3 (0.00-0.031); Immature Granulocyte Percent A 0.2 % (0-0.5); Lymphocytes Absolute Auto 1.66 K/mm3 (0.9-3.2); Lymphocytes Percent Auto 28.1 % (18.3-44.2); Mean Corpuscular Hemoglobin 30.3 pg (26-34); Mean Corpuscular Volume 89.1 fl (80-100); Mean Platelet Volume 8.8 fl (7.4-10.4); Monocytes Absolute Auto 0.5 K/mm3 (0.1-0.6); Neutrophils Absolute Auto 3.5 K/mm3 (1.3-6.7); Neutrophils Percent Auto 59.7 % (45.5-73.1); Platelet Count Result 154 k/mm3 (150-375); Red Blood Count 3.66 M/mm3 (4.6-6.20); Red Cell Distribution Width 18.1 % (11.5-14.5); White Blood Count 5.9 K/mm3 (4.5-10.0)
[2024-04-12 08:46] LABS: Blood Urea Nitrogen 26 mg/dL (8-26); Carbon Dioxide 22 mmol/L (22-30); Chloride 103 mmol/L (98-109); Estimated Glomerular Filt Rate > 60; Glucose 239 mg/dL (70-105); Ionized Calcium (POC) 1.21 mmol/L (1.11-1.31); Potassium 4.2 mmol/L (3.5-4.9); Sodium 137 mmol/L (138-146)
[2024-04-12 08:48] LABS: Urine Protein Dipstick 1+ (N)
[2024-04-12 09:29] VITALS: BP 130/89; PULSE 88; TEMP 36.4; O2SAT 100
[2024-04-12] MEDS: FAMOTIDINE 20 MG/2 ML VIAL IV PUSH (09:55)
[2024-04-12] MEDS: PALONOSETRON HCL 0.25 MG/5 ML VIAL IV PUSH (09:55)
[2024-04-12] MEDS: diphenhydrAMINE HCl INJ 50 MG/ML VIAL 25 MG IV PUSH (09:55)
[2024-04-12] MEDS: dexAMETHasone SOD 4 MG/ML INJ 12 MG in SODIUM CHLORIDE 0.9% IV 100 ML 206 MG IVPB (10:02)
[2024-04-12 10:41] LABS: Alanine Aminotransferase 15 U/L (6-50); Albumin Level 4.1 g/dL (3.5-5.1); Alkaline Phosphatase 88 U/L (38-126); Anion Gap 12 mmol/L (4-12); Aspartate Amino Transferase 18 U/L (17-59); Bilirubin,Total 1.2 mg/dL (0.2-1.3); Blood Urea Nitrogen 27 mg/dL (9-20); Carbon Dioxide 21 mmol/L (22-30); Chloride 101 mmol/L (98-107); Estimated Glomerular Filt Rate > 60; Glucose 229 mg/dL (65-110); Potassium 4.2 mmol/L (3.4-5.0); Sodium 134 mmol/L (137-145)
[2024-04-12] MEDS: OXALIPLATIN 170 MG in DEXTROSE 5% IN WATER 216 ML 125 MG IVPB (10:43)
[2024-04-12] MEDS: LEUCOVORIN CALCIUM 800 MG in DEXTROSE 5% IN WATER 210 ML 125 MG IVPB (10:45)
[2024-04-12] MEDS: BEVACIZUMAB IVPB (13:00)
[2024-04-12] MEDS: SODIUM CHLORIDE 0.9% IVPB (13:00)
[2024-04-12] MEDS: FLUOROURACIL 1,000 MG/20 ML VIAL 800 MG IV PUSH (13:50)
[2024-04-12] MEDS: FLUOROURACIL 4,800 MG in SODIUM CHLORIDE 0.9% IV 88 ML IVPB (13:50)
[2024-04-14 11:55] VITALS: BP 131/75; PULSE 96; TEMP 36.7; O2SAT 99
[2024-04-14] MEDS: HEPARIN SODIUM LOCK FLUSH 500 UNITS/5 ML SYRINGE IV PUSH (12:02)
--- NOTE | 2024-04-14 12:12 | PC.NURSE ---
Patient here for pump disconnect
[2024-04-25 08:32] LABS: Urine Protein Dipstick 2+ (N)
[2024-04-25 09:28] LABS: Basophils Percent Auto 0.5 % (0.2-1.2); Eosinophils Absolute Auto 0.1 K/mm3 (0-0.3); Eosinophils Percent Auto 1.8 % (0-4.4); Hematocrit 33.8 % (42.0-52.0); Hemoglobin 11.5 g/dL (14.0-18.0); Immature Granulocyte Absolute 0.02 K/mm3 (0.00-0.031); Immature Granulocyte Percent A 0.3 % (0-0.5); Lymphocytes Absolute Auto 1.93 K/mm3 (0.9-3.2); Lymphocytes Percent Auto 24.9 % (18.3-44.2); Mean Corpuscular Hemoglobin 31.1 pg (26-34); Mean Corpuscular Volume 91.4 fl (80-100); Mean Platelet Volume 9.1 fl (7.4-10.4); Monocytes Absolute Auto 0.8 K/mm3 (0.1-0.6); Monocytes Percent Auto 9.7 % (2.6-8.5); Neutrophils Absolute Auto 4.9 K/mm3 (1.3-6.7); Neutrophils Percent Auto 62.8 % (45.5-73.1); Platelet Count Result 161 k/mm3 (150-375); Red Cell Distribution Width 17.9 % (11.5-14.5); White Blood Count 7.8 K/mm3 (4.5-10.0)
[2024-04-25 09:32] LABS: Blood Urea Nitrogen 25 mg/dL (8-26); Carbon Dioxide 23 mmol/L (22-30); Chloride 102 mmol/L (98-109); Estimated Glomerular Filt Rate > 60; Glucose 192 mg/dL (70-105); Ionized Calcium (POC) 1.24 mmol/L (1.11-1.31); Potassium 4.3 mmol/L (3.5-4.9); Sodium 137 mmol/L (138-146)
[2024-04-25 10:03] LABS: Alanine Aminotransferase 16 U/L (6-50); Albumin Level 4.2 g/dL (3.5-5.1); Alkaline Phosphatase 71 U/L (38-126); Anion Gap 15 mmol/L (4-12); Aspartate Amino Transferase 24 U/L (17-59); Bilirubin,Total 1.4 mg/dL (0.2-1.3); Blood Urea Nitrogen 26 mg/dL (9-20); Calcium 9.2 mg/dL (8.4-10.2); Carbon Dioxide 22 mmol/L (22-30); Chloride 98 mmol/L (98-107); Estimated Glomerular Filt Rate > 60; Glucose 188 mg/dL (65-110); Potassium 4.3 mmol/L (3.4-5.0); Sodium 135 mmol/L (137-145)
[2024-04-25 10:12] VITALS: BP 121/86; PULSE 86; TEMP 36.4; O2SAT 99
[2024-04-25] MEDS: diphenhydrAMINE HCl INJ 50 MG/ML VIAL 25 MG IV PUSH (10:37)
[2024-04-25] MEDS: FAMOTIDINE 20 MG/2 ML VIAL IV PUSH (10:37)
[2024-04-25] MEDS: PALONOSETRON HCL 0.25 MG/5 ML VIAL IV PUSH (10:37)
[2024-04-25] MEDS: dexAMETHasone SOD 4 MG/ML INJ 12 MG in SODIUM CHLORIDE 0.9% IV 100 ML 206 MG IVPB (10:38)
[2024-04-25] MEDS: OXALIPLATIN 170 MG in DEXTROSE 5% IN WATER 216 ML 125 MG IVPB (11:26)
[2024-04-25] MEDS: LEUCOVORIN CALCIUM 800 MG in DEXTROSE 5% IN WATER 210 ML 125 MG IVPB (11:26)
[2024-04-25] MEDS: BEVACIZUMAB IVPB (13:39)
[2024-04-25] MEDS: SODIUM CHLORIDE 0.9% IVPB (13:39)
[2024-04-25] MEDS: FLUOROURACIL 1,000 MG/20 ML VIAL 800 MG IV PUSH (14:18)
[2024-04-25] MEDS: FLUOROURACIL 4,800 MG in SODIUM CHLORIDE 0.9% IV 88 ML IVPB (14:18)
[2024-04-27 12:37] VITALS: BP 123/74; PULSE 89; TEMP 36.3; O2SAT 100
--- NOTE | 2024-04-27 12:40 | PC.NURSE ---
Patient here for pump removal
[2024-04-27] MEDS: HEPARIN SODIUM LOCK FLUSH 500 UNITS/5 ML SYRINGE IV PUSH (12:41)
[2024-05-10 08:50] LABS: Basophils Percent Auto 0.4 % (0.2-1.2); Eosinophils Absolute Auto 0.2 K/mm3 (0-0.3); Hematocrit 30.4 % (42.0-52.0); Hemoglobin 10.2 g/dL (14.0-18.0); Immature Granulocyte Absolute 0.03 K/mm3 (0.00-0.031); Immature Granulocyte Percent A 0.4 % (0-0.5); Lymphocytes Absolute Auto 1.56 K/mm3 (0.9-3.2); Lymphocytes Percent Auto 18.5 % (18.3-44.2); Mean Corpuscular HGB Conc 33.6 g/dl (32-36); Mean Corpuscular Hemoglobin 30.9 pg (26-34); Mean Corpuscular Volume 92.1 fl (80-100); Mean Platelet Volume 8.9 fl (7.4-10.4); Monocytes Absolute Auto 0.8 K/mm3 (0.1-0.6); Neutrophils Absolute Auto 5.9 K/mm3 (1.3-6.7); Neutrophils Percent Auto 69.7 % (45.5-73.1); Platelet Count Result 186 k/mm3 (150-375); Red Cell Distribution Width 16.7 % (11.5-14.5); White Blood Count 8.4 K/mm3 (4.5-10.0)
[2024-05-10 08:56] LABS: Urine Protein Dipstick Trace (N)
[2024-05-10 08:57] LABS: Blood Urea Nitrogen 44 mg/dL (8-26); Carbon Dioxide 19 mmol/L (22-30); Chloride 105 mmol/L (98-109); Estimated Glomerular Filt Rate 23; Glucose 127 mg/dL (70-105); Ionized Calcium (POC) 1.17 mmol/L (1.11-1.31); Potassium 5.1 mmol/L (3.5-4.9); Sodium 134 mmol/L (138-146)
[2024-05-10 09:46] VITALS: BP 112/73; PULSE 81; RESP 16; TEMP 36.2; O2SAT 100
[2024-05-10] MEDS: SODIUM CHLORIDE 0.9% IV 1,000 ML 500 ML IV CONT (10:09)
[2024-05-10 10:43] LABS: Alanine Aminotransferase 25 U/L (6-50); Albumin Level 4.1 g/dL (3.5-5.1); Alkaline Phosphatase 78 U/L (38-126); Anion Gap 13 mmol/L (4-12); Aspartate Amino Transferase 33 U/L (17-59); Bilirubin,Total 0.7 mg/dL (0.2-1.3); Blood Urea Nitrogen 48 mg/dL (9-20); Carbon Dioxide 18 mmol/L (22-30); Chloride 98 mmol/L (98-107); Estimated Glomerular Filt Rate 26; Glucose 122 mg/dL (65-110); Sodium 129 mmol/L (137-145)
[2024-05-10 11:07] LABS: Carcinoembryonic Antigen 9.6 ng/mL (0.0-3.0)
[2024-05-10 12:24] VITALS: BP 105/70; PULSE 85; RESP 16; O2SAT 97
[2024-05-10] MEDS: HEPARIN SODIUM LOCK FLUSH 500 UNITS/5 ML SYRINGE IV PUSH (12:25)
[2024-05-17 10:24] LABS: Basophils Percent Auto 0.5 % (0.2-1.2); Eosinophils Absolute Auto 0.1 K/mm3 (0-0.3); Eosinophils Percent Auto 1.7 % (0-4.4); Hematocrit 30.8 % (42.0-52.0); Hemoglobin 10.3 g/dL (14.0-18.0); Immature Granulocyte Absolute 0.06 K/mm3 (0.00-0.031); Lymphocytes Absolute Auto 1.48 K/mm3 (0.9-3.2); Lymphocytes Percent Auto 25.6 % (18.3-44.2); Mean Corpuscular HGB Conc 33.4 g/dl (32-36); Mean Corpuscular Hemoglobin 30.7 pg (26-34); Mean Corpuscular Volume 91.9 fl (80-100); Mean Platelet Volume 8.8 fl (7.4-10.4); Monocytes Absolute Auto 0.6 K/mm3 (0.1-0.6); Monocytes Percent Auto 9.5 % (2.6-8.5); Neutrophils Absolute Auto 3.6 K/mm3 (1.3-6.7); Neutrophils Percent Auto 61.7 % (45.5-73.1); Platelet Count Result 214 k/mm3 (150-375); Red Blood Count 3.35 M/mm3 (4.6-6.20); Red Cell Distribution Width 16.1 % (11.5-14.5); White Blood Count 5.8 K/mm3 (4.5-10.0)
[2024-05-17 10:29] LABS: Blood Urea Nitrogen 20 mg/dL (8-26); Carbon Dioxide 21 mmol/L (22-30); Chloride 103 mmol/L (98-109); Estimated Glomerular Filt Rate > 60; Glucose 132 mg/dL (70-105); Ionized Calcium (POC) 1.23 mmol/L (1.11-1.31); Potassium 4.7 mmol/L (3.5-4.9); Sodium 137 mmol/L (138-146)
[2024-05-17 10:38] VITALS: BP 124/85; PULSE 85; TEMP 36.7; O2SAT 99
[2024-05-17] MEDS: diphenhydrAMINE HCl INJ 50 MG/ML VIAL 25 MG IV PUSH (10:55)
[2024-05-17] MEDS: FAMOTIDINE 20 MG/2 ML VIAL IV PUSH (10:55)
[2024-05-17] MEDS: PALONOSETRON HCL 0.25 MG/5 ML VIAL IV PUSH (10:55)
[2024-05-17] MEDS: dexAMETHasone SOD 4 MG/ML INJ 12 MG in SODIUM CHLORIDE 0.9% IV 100 ML 206 MG IVPB (11:11)
[2024-05-17 11:31] LABS: Alanine Aminotransferase 19 U/L (6-50); Albumin Level 4.1 g/dL (3.5-5.1); Alkaline Phosphatase 68 U/L (38-126); Anion Gap 12 mmol/L (4-12); Aspartate Amino Transferase 28 U/L (17-59); Bilirubin,Total 0.6 mg/dL (0.2-1.3); Blood Urea Nitrogen 20 mg/dL (9-20); Calcium 9.1 mg/dL (8.4-10.2); Carbon Dioxide 21 mmol/L (22-30); Chloride 103 mmol/L (98-107); Estimated Glomerular Filt Rate > 60; Glucose 128 mg/dL (65-110); Potassium 4.8 mmol/L (3.4-5.0); Sodium 136 mmol/L (137-145)
[2024-05-17] MEDS: OXALIPLATIN 170 MG in DEXTROSE 5% IN WATER 216 ML 125 MG IVPB (11:54)
[2024-05-17] MEDS: LEUCOVORIN CALCIUM 800 MG in DEXTROSE 5% IN WATER 210 ML 125 MG IVPB (11:57)
[2024-05-17] MEDS: BEVACIZUMAB IVPB (14:17)
[2024-05-17] MEDS: SODIUM CHLORIDE 0.9% IVPB (14:17)
[2024-05-17] MEDS: FLUOROURACIL 4,800 MG in SODIUM CHLORIDE 0.9% IV 88 ML IVPB (15:04)
[2024-05-17] MEDS: FLUOROURACIL 1,000 MG/20 ML VIAL 800 MG IV PUSH (15:04)
[2024-05-17 15:15] VITALS: BP 132/86
--- NOTE | 2024-05-19 13:05 | PC.NURSE ---
home infusion pump removed
[2024-05-19 13:06] VITALS: BP 144/88
[2024-05-19] MEDS: HEPARIN SODIUM LOCK FLUSH 500 UNITS/5 ML SYRINGE IV PUSH (13:11)
[2024-06-06 09:28] LABS: Basophils Percent Auto 0.4 % (0.2-1.2); Eosinophils Absolute Auto 0.1 K/mm3 (0-0.3); Eosinophils Percent Auto 2.3 % (0-4.4); Hemoglobin 10.6 g/dL (14.0-18.0); Immature Granulocyte Absolute 0.05 K/mm3 (0.00-0.031); Lymphocytes Absolute Auto 1.43 K/mm3 (0.9-3.2); Lymphocytes Percent Auto 29.4 % (18.3-44.2); Mean Corpuscular HGB Conc 33.1 g/dl (32-36); Mean Corpuscular Hemoglobin 31.3 pg (26-34); Mean Corpuscular Volume 94.4 fl (80-100); Mean Platelet Volume 8.7 fl (7.4-10.4); Monocytes Absolute Auto 0.5 K/mm3 (0.1-0.6); Monocytes Percent Auto 10.5 % (2.6-8.5); Neutrophils Absolute Auto 2.8 K/mm3 (1.3-6.7); Neutrophils Percent Auto 56.4 % (45.5-73.1); Platelet Count Result 220 k/mm3 (150-375); Red Blood Count 3.39 M/mm3 (4.6-6.20); Red Cell Distribution Width 16.2 % (11.5-14.5); White Blood Count 4.9 K/mm3 (4.5-10.0)
[2024-06-06 10:15] LABS: Anion Gap 9 mmol/L (4-12); Blood Urea Nitrogen 29 mg/dL (9-20); Calcium 9.6 mg/dL (8.4-10.2); Carbon Dioxide 28 mmol/L (22-30); Chloride 99 mmol/L (98-107); Estimated Glomerular Filt Rate > 60; Glucose 185 mg/dL (65-110); Potassium 4.5 mmol/L (3.4-5.0); Sodium 136 mmol/L (137-145)
[2024-06-06 10:48] LABS: Carcinoembryonic Antigen 9.7 ng/mL (0.0-3.0)
[2024-06-13 09:43] LABS: Basophils Percent Auto 0.5 % (0.2-1.2); Eosinophils Absolute Auto 0.1 K/mm3 (0-0.3); Eosinophils Percent Auto 2.1 % (0-4.4); Hematocrit 32.7 % (42.0-52.0); Immature Granulocyte Absolute 0.04 K/mm3 (0.00-0.031); Immature Granulocyte Percent A 0.6 % (0-0.5); Lymphocytes Percent Auto 27.1 % (18.3-44.2); Mean Corpuscular HGB Conc 33.6 g/dl (32-36); Mean Corpuscular Hemoglobin 30.8 pg (26-34); Mean Corpuscular Volume 91.6 fl (80-100); Mean Platelet Volume 8.9 fl (7.4-10.4); Monocytes Absolute Auto 0.7 K/mm3 (0.1-0.6); Neutrophils Percent Auto 59.7 % (45.5-73.1); Platelet Count Result 225 k/mm3 (150-375); Red Blood Count 3.57 M/mm3 (4.6-6.20); Red Cell Distribution Width 15.2 % (11.5-14.5); White Blood Count 6.6 K/mm3 (4.5-10.0)
[2024-06-13 09:45] LABS: Blood Urea Nitrogen 25 mg/dL (8-26); Carbon Dioxide 25 mmol/L (22-30); Chloride 100 mmol/L (98-109); Estimated Glomerular Filt Rate > 60; Glucose 153 mg/dL (70-105); Ionized Calcium (POC) 1.24 mmol/L (1.11-1.31); Potassium 4.7 mmol/L (3.5-4.9); Sodium 137 mmol/L (138-146)
[2024-07-13] MEDS: HEPARIN SODIUM LOCK FLUSH 500 UNITS/5 ML SYRINGE IV PUSH (08:45)
[2024-07-18 10:25] LABS: Basophils Percent Auto 0.1 % (0.2-1.2); Eosinophils Absolute Auto 0.1 K/mm3 (0-0.3); Eosinophils Percent Auto 1.6 % (0-4.4); Hematocrit 28.1 % (42.0-52.0); Hemoglobin 9.4 g/dL (14.0-18.0); Immature Granulocyte Absolute 0.04 K/mm3 (0.00-0.031); Immature Granulocyte Percent A 0.5 % (0-0.5); Lymphocytes Absolute Auto 0.67 K/mm3 (0.9-3.2); Lymphocytes Percent Auto 9.1 % (18.3-44.2); Mean Corpuscular HGB Conc 33.5 g/dl (32-36); Mean Corpuscular Hemoglobin 29.8 pg (26-34); Mean Corpuscular Volume 89.2 fl (80-100); Mean Platelet Volume 8.3 fl (7.4-10.4); Monocytes Absolute Auto 0.5 K/mm3 (0.1-0.6); Monocytes Percent Auto 6.3 % (2.6-8.5); Neutrophils Percent Auto 82.4 % (45.5-73.1); Nucleated Red Blood Cells Perc 0.3 % (0.0-0.2); Platelet Count Result 213 k/mm3 (150-375); Red Blood Count 3.15 M/mm3 (4.6-6.20); Red Cell Distribution Width 16.5 % (11.5-14.5); White Blood Count 7.3 K/mm3 (4.5-10.0)
[2024-07-18 11:48] LABS: Alanine Aminotransferase 12 U/L (6-50); Albumin Level 4.2 g/dL (3.5-5.1); Alkaline Phosphatase 66 U/L (38-126); Anion Gap 9 mmol/L (4-12); Aspartate Amino Transferase 19 U/L (17-59); Blood Urea Nitrogen 27 mg/dL (9-20); Calcium 9.2 mg/dL (8.4-10.2); Carbon Dioxide 25 mmol/L (22-30); Chloride 103 mmol/L (98-107); Estimated Glomerular Filt Rate > 60; Glucose 212 mg/dL (65-110); Potassium 3.9 mmol/L (3.4-5.0); Sodium 137 mmol/L (137-145)
[2024-09-06 14:32] LABS: Basophils Percent Auto 0.3 % (0.2-1.2); Eosinophils Absolute Auto 0.1 K/mm3 (0-0.3); Hematocrit 28.7 % (42.0-52.0); Hemoglobin 9.3 g/dL (14.0-18.0); Immature Granulocyte Absolute 0.07 K/mm3 (0.00-0.031); Immature Granulocyte Percent A 0.7 % (0-0.5); Lymphocytes Absolute Auto 0.68 K/mm3 (0.9-3.2); Lymphocytes Percent Auto 6.8 % (18.3-44.2); Mean Corpuscular HGB Conc 32.4 g/dl (32-36); Mean Corpuscular Hemoglobin 29.2 pg (26-34); Mean Platelet Volume 8.8 fl (7.4-10.4); Monocytes Absolute Auto 0.6 K/mm3 (0.1-0.6); Neutrophils Absolute Auto 8.6 K/mm3 (1.3-6.7); Neutrophils Percent Auto 85.2 % (45.5-73.1); Platelet Count Result 230 k/mm3 (150-375); Red Blood Count 3.19 M/mm3 (4.6-6.20); Red Cell Distribution Width 17.8 % (11.5-14.5); White Blood Count 10.1 K/mm3 (4.5-10.0)
[2024-09-06 16:37] LABS: Alanine Aminotransferase 12 U/L (6-50); Albumin Level 4.1 g/dL (3.5-5.1); Alkaline Phosphatase 72 U/L (38-126); Anion Gap 10 mmol/L (4-12); Aspartate Amino Transferase 15 U/L (17-59); Bilirubin,Total 0.6 mg/dL (0.2-1.3); Blood Urea Nitrogen 25 mg/dL (9-20); Carbon Dioxide 25 mmol/L (22-30); Chloride 103 mmol/L (98-107); Estimated Glomerular Filt Rate > 60; Glucose 167 mg/dL (65-110); Potassium 3.9 mmol/L (3.4-5.0); Sodium 138 mmol/L (137-145)
[2024-09-06 17:15] LABS: Carcinoembryonic Antigen 5.5 ng/mL (0.0-3.0)
[2024-09-20 10:12] LABS: Basophils Percent Auto 0.2 % (0.2-1.2); Eosinophils Absolute Auto 0.2 K/mm3 (0-0.3); Eosinophils Percent Auto 4.3 % (0-4.4); Hematocrit 27.9 % (42.0-52.0); Hemoglobin 8.9 g/dL (14.0-18.0); Immature Granulocyte Absolute 0.02 K/mm3 (0.00-0.031); Immature Granulocyte Percent A 0.4 % (0-0.5); Lymphocytes Absolute Auto 0.38 K/mm3 (0.9-3.2); Lymphocytes Percent Auto 7.5 % (18.3-44.2); Mean Corpuscular HGB Conc 31.9 g/dl (32-36); Mean Corpuscular Hemoglobin 28.2 pg (26-34); Mean Corpuscular Volume 88.3 fl (80-100); Mean Platelet Volume 8.9 fl (7.4-10.4); Monocytes Absolute Auto 0.3 K/mm3 (0.1-0.6); Monocytes Percent Auto 6.7 % (2.6-8.5); Neutrophils Absolute Auto 4.1 K/mm3 (1.3-6.7); Neutrophils Percent Auto 80.9 % (45.5-73.1); Platelet Count Result 198 k/mm3 (150-375); Red Blood Count 3.16 M/mm3 (4.6-6.20); Red Cell Distribution Width 17.8 % (11.5-14.5); White Blood Count 5.1 K/mm3 (4.5-10.0)
[2024-09-20 10:14] LABS: Blood Urea Nitrogen 24 mg/dL (8-26); Carbon Dioxide 23 mmol/L (22-30); Chloride 99 mmol/L (98-109); Estimated Glomerular Filt Rate > 60; Glucose 296 mg/dL (70-105); Potassium 3.9 mmol/L (3.5-4.9); Sodium 138 mmol/L (138-146)
[2024-09-20 10:34] LABS: Urine Protein Dipstick Trace (N)
[2024-09-20 10:47] LABS: Alanine Aminotransferase 14 U/L (6-50); Albumin Level 3.8 g/dL (3.5-5.1); Alkaline Phosphatase 81 U/L (38-126); Anion Gap 10 mmol/L (4-12); Aspartate Amino Transferase 19 U/L (17-59); Bilirubin,Total 1.1 mg/dL (0.2-1.3); Blood Urea Nitrogen 26 mg/dL (9-20); Calcium 8.9 mg/dL (8.4-10.2); Carbon Dioxide 25 mmol/L (22-30); Chloride 100 mmol/L (98-107); Estimated Glomerular Filt Rate > 60; Glucose 270 mg/dL (65-110); Sodium 135 mmol/L (137-145)
[2024-09-20] MEDS: HEPARIN SODIUM LOCK FLUSH 500 UNITS/5 ML SYRINGE (10:54)
[2024-09-20 13:20] LABS: Iron 57 ug/dL (49-181)
[2024-09-20 13:30] LABS: Percent Iron Saturation 18 % (20-50)
[2024-09-20 18:53] LABS: Folic Acid > 20.0 ng/mL (2.76->20); Vitamin B12 > 1000.0 pg/mL (239-931)
[2024-09-27 08:33] LABS: Basophils Percent Auto 0.4 % (0.2-1.2); Eosinophils Absolute Auto 0.1 K/mm3 (0-0.3); Eosinophils Percent Auto 2.6 % (0-4.4); Hematocrit 28.7 % (42.0-52.0); Hemoglobin 9.1 g/dL (14.0-18.0); Immature Granulocyte Absolute 0.02 K/mm3 (0.00-0.031); Immature Granulocyte Percent A 0.4 % (0-0.5); Lymphocytes Percent Auto 9.4 % (18.3-44.2); Mean Corpuscular HGB Conc 31.7 g/dl (32-36); Mean Corpuscular Hemoglobin 27.7 pg (26-34); Mean Corpuscular Volume 87.2 fl (80-100); Mean Platelet Volume 8.9 fl (7.4-10.4); Monocytes Absolute Auto 0.6 K/mm3 (0.1-0.6); Monocytes Percent Auto 10.3 % (2.6-8.5); Neutrophils Absolute Auto 4.1 K/mm3 (1.3-6.7); Neutrophils Percent Auto 76.9 % (45.5-73.1); Platelet Count Result 233 k/mm3 (150-375); Red Blood Count 3.29 M/mm3 (4.6-6.20); Red Cell Distribution Width 17.8 % (11.5-14.5); White Blood Count 5.3 K/mm3 (4.5-10.0)
[2024-09-27 08:40] LABS: Blood Urea Nitrogen 32 mg/dL (8-26); Carbon Dioxide 23 mmol/L (22-30); Chloride 99 mmol/L (98-109); Estimated Glomerular Filt Rate 59; Glucose 200 mg/dL (70-105); Ionized Calcium (POC) 1.15 mmol/L (1.11-1.31); Potassium 4.1 mmol/L (3.5-4.9); Sodium 135 mmol/L (138-146)
[2024-09-27 09:21] VITALS: BP 126/64; PULSE 86; RESP 16; TEMP 36.9; O2SAT 100
[2024-09-27] MEDS: PALONOSETRON HCL 0.25 MG/5 ML VIAL IV PUSH (09:36)
[2024-09-27] MEDS: dexAMETHasone SOD 4 MG/ML INJ 12 MG in SODIUM CHLORIDE 0.9% IV 100 ML 206 MG IVPB (09:38)
[2024-09-27] MEDS: ATROPINE SULFATE 1 MG/ML VIAL 0.25 MG SUB-Q (09:40)
[2024-09-27] MEDS: LEUCOVORIN CALCIUM 800 MG in SODIUM CHLORIDE 0.9% IV 210 ML 166.67 MG IVPB (10:17)
[2024-09-27] MEDS: SODIUM CHLORIDE 0.9% IVPB ×2 (10:17→12:03)
[2024-09-27] MEDS: IRINOTECAN HCL IVPB (10:17)
[2024-09-27 11:07] LABS: Alanine Aminotransferase 20 U/L (6-50); Albumin Level 4.1 g/dL (3.5-5.1); Alkaline Phosphatase 97 U/L (38-126); Anion Gap 13 mmol/L (4-12); Aspartate Amino Transferase 23 U/L (17-59); Bilirubin,Total 1.1 mg/dL (0.2-1.3); Blood Urea Nitrogen 35 mg/dL (9-20); Carbon Dioxide 22 mmol/L (22-30); Chloride 99 mmol/L (98-107); Estimated Glomerular Filt Rate > 60; Glucose 182 mg/dL (65-110); Potassium 4.3 mmol/L (3.4-5.0); Sodium 134 mmol/L (137-145)
[2024-09-27 11:20] LABS: Add Urine Microscopic? YES; Appearance Urine Clear (Clear); Bacteria Urine None Seen /hpf; Bilirubin Urine Negative (Negative); Blood Urine Negative (Negative); Color Urine Yellow (Yellow); Glucose Urine UA 3+ mg/dL (Negative); Ketones Urine Negative (Negative); Leukocyte Esterase Ur Negative LEU/UL (Negative); Nitrate Urine Negative (Negative); Non Pathogenic Casts 0-2; Protein Urine Trace mg/dL (Negative); RBC Urine 0-2 /hpf (0-2); Specific Grav Ur 1.015 (1.001-1.035); Squamous Epithelial Cell Urine None Seen /hpf (Few); Urobilinogen Urine 0.2 mg/dL (<2.0); WBC Urine 0-5 /hpf (0-3)
[2024-09-27] MEDS: BEVACIZUMAB IVPB (12:03)
[2024-09-27] MEDS: EPOETIN ALFA-EPBX 20,000 UNITS/ML VIAL 20000 UNITS SUB-Q (12:09)
[2024-09-27 12:55] VITALS: BP 122/73
[2024-09-27] MEDS: FLUOROURACIL 1,000 MG/20 ML VIAL 800 MG IV PUSH (12:55)
[2024-09-27] MEDS: FLUOROURACIL 4,800 MG in SODIUM CHLORIDE 0.9% IV 88 ML IVPB (12:56)
[2024-09-29 11:08] VITALS: BP 114/7; PULSE 77; TEMP 36.4; O2SAT 100
[2024-09-29] MEDS: HEPARIN SODIUM LOCK FLUSH 500 UNITS/5 ML SYRINGE IV PUSH (11:14)
[2024-10-11 09:22] LABS: Basophils Percent Auto 0.8 % (0.2-1.2); Eosinophils Absolute Auto 0.2 K/mm3 (0-0.3); Eosinophils Percent Auto 7.9 % (0-4.4); Hematocrit 29.3 % (42.0-52.0); Hemoglobin 9.4 g/dL (14.0-18.0); Immature Granulocyte Absolute 0.01 K/mm3 (0.00-0.031); Immature Granulocyte Percent A 0.4 % (0-0.5); Lymphocytes Absolute Auto 0.49 K/mm3 (0.9-3.2); Lymphocytes Percent Auto 18.4 % (18.3-44.2); Mean Corpuscular HGB Conc 32.1 g/dl (32-36); Mean Corpuscular Hemoglobin 27.4 pg (26-34); Mean Corpuscular Volume 85.4 fl (80-100); Monocytes Absolute Auto 0.3 K/mm3 (0.1-0.6); Neutrophils Absolute Auto 1.6 K/mm3 (1.3-6.7); Neutrophils Percent Auto 60.5 % (45.5-73.1); Platelet Count Result 162 k/mm3 (150-375); Red Blood Count 3.43 M/mm3 (4.6-6.20); Red Cell Distribution Width 18.6 % (11.5-14.5); White Blood Count 2.7 K/mm3 (4.5-10.0)
[2024-10-11 09:25] LABS: Blood Urea Nitrogen 15 mg/dL (8-26); Carbon Dioxide 24 mmol/L (22-30); Chloride 101 mmol/L (98-109); Estimated Glomerular Filt Rate > 60; Glucose 206 mg/dL (70-105); Potassium 4.3 mmol/L (3.5-4.9); Sodium 138 mmol/L (138-146)
[2024-10-11 09:26] VITALS: BP 118/74; PULSE 84; TEMP 36.5; O2SAT 100
[2024-10-11] MEDS: ACETAMINOPHEN 325 MG TABLET 650 MG PO (10:00)
[2024-10-11] MEDS: diphenhydrAMINE HCl INJ 50 MG/ML VIAL 25 MG IV PUSH (10:02)
[2024-10-11] MEDS: PALONOSETRON HCL 0.25 MG/5 ML VIAL IV PUSH (10:02)
[2024-10-11] MEDS: dexAMETHasone SOD 4 MG/ML INJ 12 MG in SODIUM CHLORIDE 0.9% IV 100 ML 206 MG IVPB (10:09)
[2024-10-11] MEDS: PANITUMUMAB IVPB (10:47)
[2024-10-11] MEDS: SODIUM CHLORIDE 0.9% IVPB ×2 (10:47→12:03)
[2024-10-11 11:29] LABS: Alanine Aminotransferase 15 U/L (6-50); Alkaline Phosphatase 90 U/L (38-126); Anion Gap 9 mmol/L (4-12); Aspartate Amino Transferase 19 U/L (17-59); Bilirubin,Total 1.1 mg/dL (0.2-1.3); Blood Urea Nitrogen 17 mg/dL (9-20); Calcium 8.9 mg/dL (8.4-10.2); Carbon Dioxide 26 mmol/L (22-30); Chloride 101 mmol/L (98-107); Estimated Glomerular Filt Rate > 60; Glucose 189 mg/dL (65-110); Magnesium 1.8 mg/dL (1.6-2.3); Potassium 4.4 mmol/L (3.4-5.0); Sodium 136 mmol/L (137-145)
[2024-10-11] MEDS: ATROPINE SULFATE 1 MG/ML VIAL 0.25 MG SUB-Q (11:48)
[2024-10-11] MEDS: EPOETIN ALFA-EPBX 20,000 UNITS/ML VIAL 20000 UNITS SUB-Q (11:54)
[2024-10-11] MEDS: LEUCOVORIN CALCIUM 800 MG in SODIUM CHLORIDE 0.9% IV 210 ML 125 MG IVPB (12:02)
[2024-10-11] MEDS: IRINOTECAN HCL IVPB (12:03)
[2024-10-11] MEDS: FLUOROURACIL 1,000 MG/20 ML VIAL 800 MG IV PUSH (14:05)
[2024-10-11] MEDS: FLUOROURACIL 4,800 MG in SODIUM CHLORIDE 0.9% IV 88 ML IVPB (14:05)
[2024-10-11 14:14] VITALS: BP 129/88
[2024-10-13 12:04] VITALS: BP 128/75; PULSE 83; RESP 16; TEMP 36.4; O2SAT 100
[2024-10-13] MEDS: HEPARIN SODIUM LOCK FLUSH 500 UNITS/5 ML SYRINGE IV PUSH (12:15)
--- NOTE | 2024-10-13 12:16 | PC.NURSE ---
1216: pt. here for chemo pump disconnect.
[2024-10-25 08:39] LABS: Basophils Percent Auto 0.4 % (0.2-1.2); Eosinophils Absolute Auto 0.2 K/mm3 (0-0.3); Eosinophils Percent Auto 3.5 % (0-4.4); Hemoglobin 9.4 g/dL (14.0-18.0); Immature Granulocyte Absolute 0.02 K/mm3 (0.00-0.031); Immature Granulocyte Percent A 0.4 % (0-0.5); Lymphocytes Absolute Auto 0.48 K/mm3 (0.9-3.2); Lymphocytes Percent Auto 8.8 % (18.3-44.2); Mean Corpuscular HGB Conc 32.4 g/dl (32-36); Mean Corpuscular Hemoglobin 27.2 pg (26-34); Mean Corpuscular Volume 84.1 fl (80-100); Mean Platelet Volume 9.4 fl (7.4-10.4); Monocytes Absolute Auto 0.5 K/mm3 (0.1-0.6); Monocytes Percent Auto 8.8 % (2.6-8.5); Neutrophils Absolute Auto 4.3 K/mm3 (1.3-6.7); Neutrophils Percent Auto 78.1 % (45.5-73.1); Platelet Count Result 224 k/mm3 (150-375); Red Blood Count 3.45 M/mm3 (4.6-6.20); Red Cell Distribution Width 19.4 % (11.5-14.5); White Blood Count 5.5 K/mm3 (4.5-10.0)
[2024-10-25 08:44] LABS: Blood Urea Nitrogen 16 mg/dL (8-26); Carbon Dioxide 22 mmol/L (22-30); Chloride 106 mmol/L (98-109); Estimated Glomerular Filt Rate > 60; Glucose 155 mg/dL (70-105); Potassium 3.5 mmol/L (3.5-4.9); Sodium 140 mmol/L (138-146)
[2024-10-25 09:14] VITALS: BP 110/71; PULSE 90; TEMP 36.6; O2SAT 100
[2024-10-25] MEDS: PALONOSETRON HCL 0.25 MG/5 ML VIAL IV PUSH (09:30)
[2024-10-25] MEDS: dexAMETHasone SOD 4 MG/ML INJ 12 MG in SODIUM CHLORIDE 0.9% IV 100 ML 206 MG IVPB (09:32)
[2024-10-25] MEDS: EPOETIN ALFA-EPBX 20,000 UNITS/ML VIAL 20000 UNITS SUB-Q (09:33)
[2024-10-25] MEDS: ATROPINE SULFATE 1 MG/ML VIAL 0.25 MG SUB-Q (09:54)
[2024-10-25 10:04] LABS: Alanine Aminotransferase 16 U/L (6-50); Albumin Level 3.8 g/dL (3.5-5.1); Alkaline Phosphatase 95 U/L (38-126); Anion Gap 11 mmol/L (4-12); Aspartate Amino Transferase 17 U/L (17-59); Bilirubin,Total 0.9 mg/dL (0.2-1.3); Blood Urea Nitrogen 17 mg/dL (9-20); Calcium 8.6 mg/dL (8.4-10.2); Carbon Dioxide 21 mmol/L (22-30); Chloride 106 mmol/L (98-107); Estimated Glomerular Filt Rate > 60; Glucose 147 mg/dL (65-110); Magnesium 1.5 mg/dL (1.6-2.3); Potassium 3.6 mmol/L (3.4-5.0); Sodium 138 mmol/L (137-145)
[2024-10-25] MEDS: SODIUM CHLORIDE 0.9% IVPB (10:17)
[2024-10-25] MEDS: IRINOTECAN HCL IVPB (10:17)
[2024-10-25] MEDS: LEUCOVORIN CALCIUM 800 MG in SODIUM CHLORIDE 0.9% IV 210 ML 125 MG IVPB (10:17)
[2024-10-25 10:31] LABS: Creatinine Urine 113.3 mg/dL
[2024-10-25 10:49] LABS: MALB Creatinine Ratio 370.2 mg/g (0-30); Microalbumin Urine Random 419.4 mg/L (0-16.7)
[2024-10-25 12:07] VITALS: BP 130/83
[2024-10-25] MEDS: FLUOROURACIL 1,000 MG/20 ML VIAL 800 MG IV PUSH (12:16)
[2024-10-25] MEDS: FLUOROURACIL 4,800 MG in SODIUM CHLORIDE 0.9% IV 88 ML IVPB (12:18)
[2024-10-27 10:29] VITALS: BP 111/73; PULSE 72; RESP 16; TEMP 36.4; O2SAT 100
[2024-10-27] MEDS: HEPARIN SODIUM LOCK FLUSH 500 UNITS/5 ML SYRINGE IV PUSH (10:33)
--- NOTE | 2024-10-27 16:06 | PC.NURSE ---
Patient her for pump disconnect
[2024-11-08 08:50] LABS: Basophils Percent Auto 0.5 % (0.2-1.2); Eosinophils Absolute Auto 0.1 K/mm3 (0-0.3); Eosinophils Percent Auto 2.6 % (0-4.4); Hemoglobin 9.8 g/dL (14.0-18.0); Immature Granulocyte Absolute 0.01 K/mm3 (0.00-0.031); Immature Granulocyte Percent A 0.3 % (0-0.5); Lymphocytes Absolute Auto 0.53 K/mm3 (0.9-3.2); Lymphocytes Percent Auto 13.7 % (18.3-44.2); Mean Corpuscular HGB Conc 32.7 g/dl (32-36); Mean Corpuscular Hemoglobin 27.9 pg (26-34); Mean Corpuscular Volume 85.5 fl (80-100); Mean Platelet Volume 9.3 fl (7.4-10.4); Monocytes Absolute Auto 0.3 K/mm3 (0.1-0.6); Monocytes Percent Auto 8.5 % (2.6-8.5); Neutrophils Absolute Auto 2.9 K/mm3 (1.3-6.7); Neutrophils Percent Auto 74.4 % (45.5-73.1); Platelet Count Result 189 k/mm3 (150-375); Red Blood Count 3.51 M/mm3 (4.6-6.20); White Blood Count 3.9 K/mm3 (4.5-10.0)
[2024-11-08 08:54] LABS: Blood Urea Nitrogen 23 mg/dL (8-26); Carbon Dioxide 24 mmol/L (22-30); Chloride 102 mmol/L (98-109); Estimated Glomerular Filt Rate > 60; Glucose 214 mg/dL (70-105); Potassium 3.9 mmol/L (3.5-4.9); Sodium 138 mmol/L (138-146)
[2024-11-08 08:56] VITALS: BP 112/72; PULSE 83; RESP 16; TEMP 36.2; O2SAT 100
[2024-11-08] MEDS: ACETAMINOPHEN 325 MG TABLET 650 MG PO (09:34)
[2024-11-08] MEDS: PALONOSETRON HCL 0.25 MG/5 ML VIAL IV PUSH (09:35)
[2024-11-08] MEDS: diphenhydrAMINE HCl INJ 50 MG/ML VIAL 25 MG IV PUSH (09:37)
[2024-11-08] MEDS: ATROPINE SULFATE 1 MG/ML VIAL 0.25 MG SUB-Q (09:38)
[2024-11-08] MEDS: EPOETIN ALFA-EPBX 20,000 UNITS/ML VIAL 20000 UNITS SUB-Q (09:40)
[2024-11-08] MEDS: dexAMETHasone SOD 4 MG/ML INJ 12 MG in SODIUM CHLORIDE 0.9% IV 100 ML 206 MG IVPB (09:46)
[2024-11-08] MEDS: PANITUMUMAB IVPB (10:22)
[2024-11-08] MEDS: SODIUM CHLORIDE 0.9% IVPB ×2 (10:22→10:56)
[2024-11-08 10:24] LABS: Potassium 4.1 mmol/L (3.4-5.0)
[2024-11-08 10:35] LABS: Alanine Aminotransferase 19 U/L (6-50); Albumin Level 3.9 g/dL (3.5-5.1); Alkaline Phosphatase 117 U/L (38-126); Anion Gap 14 mmol/L (4-12); Aspartate Amino Transferase 21 U/L (17-59); Blood Urea Nitrogen 24 mg/dL (9-20); Calcium 8.8 mg/dL (8.4-10.2); Carbon Dioxide 23 mmol/L (22-30); Chloride 102 mmol/L (98-107); Estimated Glomerular Filt Rate > 60; Glucose 204 mg/dL (65-110); Magnesium 1.9 mg/dL (1.6-2.3); Sodium 139 mmol/L (137-145)
[2024-11-08] MEDS: LEUCOVORIN CALCIUM 800 MG in SODIUM CHLORIDE 0.9% IV 210 ML 166.67 MG IVPB (10:56)
[2024-11-08] MEDS: IRINOTECAN HCL IVPB (10:56)
[2024-11-08] MEDS: FLUOROURACIL 1,000 MG/20 ML VIAL 800 MG IV PUSH (12:48)
[2024-11-08] MEDS: FLUOROURACIL 4,800 MG in SODIUM CHLORIDE 0.9% IV 88 ML IVPB (12:48)
[2024-11-08 12:49] VITALS: BP 119/74
--- NOTE | 2024-11-10 10:55 | PC.NURSE ---
Patient here for pump disconnect
[2024-11-10 10:56] VITALS: BP 107/73; PULSE 78; TEMP 36.4; O2SAT 100
[2024-11-10] MEDS: HEPARIN SODIUM LOCK FLUSH 500 UNITS/5 ML SYRINGE IV PUSH (10:59)
[2024-11-22 08:35] LABS: Basophils Percent Auto 0.5 % (0.2-1.2); Eosinophils Absolute Auto 0.1 K/mm3 (0-0.3); Eosinophils Percent Auto 2.7 % (0-4.4); Hematocrit 30.2 % (42.0-52.0); Hemoglobin 9.8 g/dL (14.0-18.0); Immature Granulocyte Absolute 0.01 K/mm3 (0.00-0.031); Immature Granulocyte Percent A 0.2 % (0-0.5); Lymphocytes Absolute Auto 0.47 K/mm3 (0.9-3.2); Lymphocytes Percent Auto 11.3 % (18.3-44.2); Mean Corpuscular HGB Conc 32.5 g/dl (32-36); Mean Corpuscular Hemoglobin 27.9 pg (26-34); Mean Platelet Volume 9.4 fl (7.4-10.4); Monocytes Absolute Auto 0.3 K/mm3 (0.1-0.6); Monocytes Percent Auto 8.2 % (2.6-8.5); Neutrophils Absolute Auto 3.2 K/mm3 (1.3-6.7); Neutrophils Percent Auto 77.1 % (45.5-73.1); Platelet Count Result 170 k/mm3 (150-375); Red Blood Count 3.51 M/mm3 (4.6-6.20); Red Cell Distribution Width 20.8 % (11.5-14.5); White Blood Count 4.2 K/mm3 (4.5-10.0)
[2024-11-22 08:38] LABS: Blood Urea Nitrogen 23 mg/dL (8-26); Carbon Dioxide 22 mmol/L (22-30); Chloride 103 mmol/L (98-109); Estimated Glomerular Filt Rate > 60; Glucose 209 mg/dL (70-105); Ionized Calcium (POC) 1.21 mmol/L (1.11-1.31); Sodium 137 mmol/L (138-146)
[2024-11-22 09:12] VITALS: BP 127/82; PULSE 87; TEMP 36.4; O2SAT 100
[2024-11-22] MEDS: PALONOSETRON HCL 0.25 MG/5 ML VIAL IV PUSH (09:43)
[2024-11-22] MEDS: ACETAMINOPHEN 325 MG TABLET 650 MG PO (09:43)
[2024-11-22] MEDS: diphenhydrAMINE HCl INJ 50 MG/ML VIAL 25 MG IV PUSH (09:45)
[2024-11-22] MEDS: EPOETIN ALFA-EPBX 20,000 UNITS/ML VIAL 20000 UNITS SUB-Q (09:45)
[2024-11-22] MEDS: ATROPINE SULFATE 1 MG/ML VIAL 0.25 MG SUB-Q (09:45)
[2024-11-22 09:47] LABS: Alanine Aminotransferase 19 U/L (6-50); Albumin Level 3.8 g/dL (3.5-5.1); Alkaline Phosphatase 96 U/L (38-126); Anion Gap 12 mmol/L (4-12); Aspartate Amino Transferase 28 U/L (17-59); Bilirubin,Total 0.8 mg/dL (0.2-1.3); Blood Urea Nitrogen 23 mg/dL (9-20); Calcium 8.8 mg/dL (8.4-10.2); Carbon Dioxide 21 mmol/L (22-30); Chloride 103 mmol/L (98-107); Estimated Glomerular Filt Rate > 60; Glucose 200 mg/dL (65-110); Magnesium 1.4 mg/dL (1.6-2.3); Sodium 136 mmol/L (137-145)
[2024-11-22] MEDS: dexAMETHasone SOD 4 MG/ML INJ 12 MG in SODIUM CHLORIDE 0.9% IV 100 ML 206 MG IVPB (09:54)
[2024-11-22] MEDS: SODIUM CHLORIDE 0.9% IVPB ×2 (10:26→11:17)
[2024-11-22] MEDS: PANITUMUMAB IVPB (10:26)
[2024-11-22] MEDS: LEUCOVORIN CALCIUM 800 MG in SODIUM CHLORIDE 0.9% IV 210 ML 125 MG IVPB (11:16)
[2024-11-22] MEDS: IRINOTECAN HCL IVPB (11:17)
[2024-11-22] MEDS: MAGNESIUM SULF 2 GM/WATER 50ML 2 GM/50 ML BAG IVPB (13:26)
[2024-11-22] MEDS: FLUOROURACIL 1,000 MG/20 ML VIAL 800 MG IV PUSH (14:06)
[2024-11-22] MEDS: FLUOROURACIL 4,800 MG in SODIUM CHLORIDE 0.9% IV 88 ML IVPB (14:06)
[2024-11-24 12:19] VITALS: BP 107/72; PULSE 75; TEMP 36.4; O2SAT 100
--- NOTE | 2024-11-24 12:21 | PC.NURSE ---
Patient here for pump disconnect.
[2024-11-24] MEDS: HEPARIN SODIUM LOCK FLUSH 500 UNITS/5 ML SYRINGE IV PUSH (12:35)
[2024-12-06 08:50] LABS: Basophils Percent Auto 0.4 % (0.2-1.2); Eosinophils Absolute Auto 0.2 K/mm3 (0-0.3); Eosinophils Percent Auto 3.8 % (0-4.4); Hematocrit 29.5 % (42.0-52.0); Hemoglobin 9.7 g/dL (14.0-18.0); Immature Granulocyte Absolute 0.02 K/mm3 (0.00-0.031); Immature Granulocyte Percent A 0.4 % (0-0.5); Lymphocytes Absolute Auto 0.53 K/mm3 (0.9-3.2); Lymphocytes Percent Auto 11.8 % (18.3-44.2); Mean Corpuscular HGB Conc 32.9 g/dl (32-36); Mean Corpuscular Volume 85.3 fl (80-100); Mean Platelet Volume 9.5 fl (7.4-10.4); Monocytes Absolute Auto 0.4 K/mm3 (0.1-0.6); Monocytes Percent Auto 9.2 % (2.6-8.5); Neutrophils Absolute Auto 3.3 K/mm3 (1.3-6.7); Neutrophils Percent Auto 74.4 % (45.5-73.1); Platelet Count Result 171 k/mm3 (150-375); Red Blood Count 3.46 M/mm3 (4.6-6.20); Red Cell Distribution Width 20.5 % (11.5-14.5); White Blood Count 4.5 K/mm3 (4.5-10.0)
[2024-12-06 08:53] LABS: Blood Urea Nitrogen 26 mg/dL (8-26); Carbon Dioxide 23 mmol/L (22-30); Chloride 103 mmol/L (98-109); Estimated Glomerular Filt Rate > 60; Glucose 162 mg/dL (70-105); Ionized Calcium (POC) 1.17 mmol/L (1.11-1.31); Potassium 3.7 mmol/L (3.5-4.9); Sodium 138 mmol/L (138-146)
[2024-12-06 09:05] VITALS: BP 108/72; PULSE 82; TEMP 36.5; O2SAT 100
[2024-12-06] MEDS: ACETAMINOPHEN 325 MG TABLET 650 MG PO (09:24)
[2024-12-06] MEDS: PALONOSETRON HCL 0.25 MG/5 ML VIAL IV PUSH (09:25)
[2024-12-06] MEDS: diphenhydrAMINE HCl INJ 50 MG/ML VIAL 25 MG IV PUSH (09:26)
[2024-12-06] MEDS: dexAMETHasone SOD 4 MG/ML INJ 12 MG in SODIUM CHLORIDE 0.9% IV 100 ML 206 MG IVPB (09:36)
[2024-12-06 09:37] LABS: Alanine Aminotransferase 18 U/L (6-50); Albumin Level 3.8 g/dL (3.5-5.1); Alkaline Phosphatase 93 U/L (38-126); Anion Gap 11 mmol/L (4-12); Aspartate Amino Transferase 27 U/L (17-59); Bilirubin,Total 0.9 mg/dL (0.2-1.3); Blood Urea Nitrogen 29 mg/dL (9-20); Calcium 8.5 mg/dL (8.4-10.2); Carbon Dioxide 22 mmol/L (22-30); Chloride 104 mmol/L (98-107); Estimated Glomerular Filt Rate > 60; Glucose 160 mg/dL (65-110); Magnesium 1.2 mg/dL (1.6-2.3); Potassium 3.7 mmol/L (3.4-5.0); Sodium 137 mmol/L (137-145)
[2024-12-06] MEDS: EPOETIN ALFA-EPBX 20,000 UNITS/ML VIAL 20000 UNITS SUB-Q (09:38)
[2024-12-06] MEDS: ATROPINE SULFATE 1 MG/ML VIAL 0.25 MG SUB-Q (09:40)
[2024-12-06] MEDS: PANITUMUMAB IVPB (10:15)
[2024-12-06] MEDS: SODIUM CHLORIDE 0.9% IVPB ×2 (10:15→10:56)
[2024-12-06] MEDS: LEUCOVORIN CALCIUM 800 MG in SODIUM CHLORIDE 0.9% IV 210 ML 125 MG IVPB (10:55)
[2024-12-06] MEDS: IRINOTECAN HCL IVPB (10:56)
[2024-12-06] MEDS: MAGNESIUM SULF 2 GM/WATER 50ML 2 GM/50 ML BAG IVPB (13:04)
[2024-12-06] MEDS: FLUOROURACIL 4,800 MG in SODIUM CHLORIDE 0.9% IV 88 ML IVPB (13:43)
[2024-12-06] MEDS: FLUOROURACIL 1,000 MG/20 ML VIAL 800 MG IV PUSH (13:43)
[2024-12-08 11:47] VITALS: BP 100/57; PULSE 90; RESP 18; TEMP 36.4; O2SAT 100
[2024-12-08] MEDS: HEPARIN SODIUM LOCK FLUSH 500 UNITS/5 ML SYRINGE IV PUSH ×2 (11:54→14:23)
--- NOTE | 2024-12-08 11:54 | PC.NURSE ---
here for chemo pump disconnect and port deaccess.
[2024-12-20 08:24] LABS: Basophils Percent Auto 0.4 % (0.2-1.2); Eosinophils Absolute Auto 0.2 K/mm3 (0-0.3); Eosinophils Percent Auto 2.9 % (0-4.4); Hematocrit 28.3 % (42.0-52.0); Hemoglobin 9.5 g/dL (14.0-18.0); Immature Granulocyte Absolute 0.01 K/mm3 (0.00-0.031); Immature Granulocyte Percent A 0.2 % (0-0.5); Lymphocytes Absolute Auto 0.74 K/mm3 (0.9-3.2); Lymphocytes Percent Auto 14.3 % (18.3-44.2); Mean Corpuscular HGB Conc 33.6 g/dl (32-36); Mean Corpuscular Hemoglobin 29.1 pg (26-34); Mean Corpuscular Volume 86.8 fl (80-100); Mean Platelet Volume 9.7 fl (7.4-10.4); Monocytes Absolute Auto 0.4 K/mm3 (0.1-0.6); Monocytes Percent Auto 8.5 % (2.6-8.5); Neutrophils Absolute Auto 3.8 K/mm3 (1.3-6.7); Neutrophils Percent Auto 73.7 % (45.5-73.1); Platelet Count Result 182 k/mm3 (150-375); Red Blood Count 3.26 M/mm3 (4.6-6.20); Red Cell Distribution Width 20.5 % (11.5-14.5); White Blood Count 5.2 K/mm3 (4.5-10.0)
[2024-12-20 08:30] LABS: Blood Urea Nitrogen 24 mg/dL (8-26); Carbon Dioxide 22 mmol/L (22-30); Chloride 103 mmol/L (98-109); Estimated Glomerular Filt Rate > 60; Glucose 182 mg/dL (70-105); Ionized Calcium (POC) 1.11 mmol/L (1.11-1.31); Potassium 3.2 mmol/L (3.5-4.9); Sodium 141 mmol/L (138-146)
[2024-12-20 09:04] VITALS: BP 130/80; PULSE 88; RESP 18; TEMP 36.3; O2SAT 100
[2024-12-20] MEDS: ACETAMINOPHEN 325 MG TABLET 650 MG PO (09:25)
[2024-12-20] MEDS: PALONOSETRON HCL 0.25 MG/5 ML VIAL IV PUSH (09:27)
[2024-12-20] MEDS: diphenhydrAMINE HCl INJ 50 MG/ML VIAL 25 MG IV PUSH (09:27)
[2024-12-20] MEDS: ATROPINE SULFATE 1 MG/ML VIAL 0.25 MG SUB-Q (09:34)
[2024-12-20] MEDS: EPOETIN ALFA-EPBX 20,000 UNITS/ML VIAL 20000 UNITS SUB-Q (09:38)
[2024-12-20] MEDS: dexAMETHasone SOD 4 MG/ML INJ 12 MG in SODIUM CHLORIDE 0.9% IV 100 ML 206 MG IVPB (09:40)
[2024-12-20 10:13] LABS: Alanine Aminotransferase 18 U/L (6-50); Albumin Level 3.8 g/dL (3.5-5.1); Alkaline Phosphatase 86 U/L (38-126); Anion Gap 12 mmol/L (4-12); Aspartate Amino Transferase 26 U/L (17-59); Bilirubin,Total 0.6 mg/dL (0.2-1.3); Blood Urea Nitrogen 26 mg/dL (9-20); Calcium 8.1 mg/dL (8.4-10.2); Carbon Dioxide 23 mmol/L (22-30); Chloride 105 mmol/L (98-107); Estimated Glomerular Filt Rate > 60; Glucose 176 mg/dL (65-110); Potassium 3.3 mmol/L (3.4-5.0); Sodium 140 mmol/L (137-145)
[2024-12-20] MEDS: SODIUM CHLORIDE 0.9% IVPB ×2 (10:14→10:47)
[2024-12-20] MEDS: PANITUMUMAB IVPB (10:14)
[2024-12-20] MEDS: LEUCOVORIN CALCIUM 800 MG in SODIUM CHLORIDE 0.9% IV 210 ML 125 MG IVPB (10:47)
[2024-12-20] MEDS: IRINOTECAN HCL IVPB (10:47)
[2024-12-20 10:57] LABS: Carcinoembryonic Antigen 18.7 ng/mL (0.0-3.0)
[2024-12-20] MEDS: MAGNESIUM SULF 4 GM/WATER100ML 4 GM/100 ML BAG IVPB (12:42)
[2024-12-20] MEDS: FLUOROURACIL 1,000 MG/20 ML VIAL 800 MG IV PUSH (14:00)
[2024-12-20] MEDS: FLUOROURACIL 4,800 MG in SODIUM CHLORIDE 0.9% IV 88 ML IVPB (14:00)
[2024-12-20 14:07] VITALS: BP 123/79
[2024-12-22 12:13] VITALS: BP 117/70; PULSE 83; TEMP 36.3; O2SAT 100
[2024-12-22] MEDS: HEPARIN SODIUM LOCK FLUSH 500 UNITS/5 ML SYRINGE IV PUSH (12:18)
--- NOTE | 2024-12-22 16:04 | PC.NURSE ---
Patient here for pump disconnect
[2025-01-03 09:15] LABS: Basophils Percent Auto 0.6 % (0.2-1.2); Eosinophils Absolute Auto 0.1 K/mm3 (0-0.3); Eosinophils Percent Auto 2.5 % (0-4.4); Hematocrit 29.8 % (42.0-52.0); Hemoglobin 9.8 g/dL (14.0-18.0); Immature Granulocyte Absolute 0.02 K/mm3 (0.00-0.031); Immature Granulocyte Percent A 0.4 % (0-0.5); Lymphocytes Absolute Auto 0.64 K/mm3 (0.9-3.2); Lymphocytes Percent Auto 12.5 % (18.3-44.2); Mean Corpuscular HGB Conc 32.9 g/dl (32-36); Mean Corpuscular Volume 88.2 fl (80-100); Mean Platelet Volume 9.3 fl (7.4-10.4); Monocytes Absolute Auto 0.4 K/mm3 (0.1-0.6); Monocytes Percent Auto 7.4 % (2.6-8.5); Neutrophils Absolute Auto 3.9 K/mm3 (1.3-6.7); Neutrophils Percent Auto 76.6 % (45.5-73.1); Platelet Count Result 191 k/mm3 (150-375); Red Blood Count 3.38 M/mm3 (4.6-6.20); Red Cell Distribution Width 19.5 % (11.5-14.5); White Blood Count 5.1 K/mm3 (4.5-10.0)
[2025-01-03 09:19] LABS: Blood Urea Nitrogen 27 mg/dL (8-26); Carbon Dioxide 22 mmol/L (22-30); Chloride 102 mmol/L (98-109); Estimated Glomerular Filt Rate > 60; Glucose 190 mg/dL (70-105); Ionized Calcium (POC) 1.19 mmol/L (1.11-1.31); Potassium 4.3 mmol/L (3.5-4.9); Sodium 138 mmol/L (138-146)
[2025-01-03 09:25] VITALS: BP 110/66; PULSE 88; TEMP 36.7; O2SAT 100
[2025-01-03] MEDS: ACETAMINOPHEN 325 MG TABLET 650 MG PO (09:39)
[2025-01-03] MEDS: diphenhydrAMINE HCl INJ 50 MG/ML VIAL 25 MG IV PUSH (09:41)
[2025-01-03] MEDS: PALONOSETRON HCL 0.25 MG/5 ML VIAL IV PUSH (09:41)
[2025-01-03] MEDS: dexAMETHasone SOD 4 MG/ML INJ 12 MG in SODIUM CHLORIDE 0.9% IV 100 ML 206 MG IVPB (09:52)
[2025-01-03] MEDS: EPOETIN ALFA-EPBX 20,000 UNITS/ML VIAL 20000 UNITS SUB-Q (09:52)
[2025-01-03] MEDS: ATROPINE SULFATE 1 MG/ML VIAL 0.25 MG SUB-Q (09:52)
[2025-01-03 09:56] LABS: Alanine Aminotransferase 21 U/L (6-50); Albumin Level 3.9 g/dL (3.5-5.1); Alkaline Phosphatase 90 U/L (38-126); Anion Gap 10 mmol/L (4-12); Aspartate Amino Transferase 37 U/L (17-59); Bilirubin,Total 0.7 mg/dL (0.2-1.3); Blood Urea Nitrogen 29 mg/dL (9-20); Calcium 8.8 mg/dL (8.4-10.2); Carbon Dioxide 23 mmol/L (22-30); Chloride 104 mmol/L (98-107); Estimated Glomerular Filt Rate > 60; Glucose 176 mg/dL (65-110); Magnesium 1.2 mg/dL (1.6-2.3); Potassium 4.3 mmol/L (3.4-5.0); Sodium 137 mmol/L (137-145)
[2025-01-03] MEDS: SODIUM CHLORIDE 0.9% IVPB ×2 (10:23→11:16)
[2025-01-03] MEDS: PANITUMUMAB IVPB (10:23)
[2025-01-03] MEDS: LEUCOVORIN CALCIUM 800 MG in SODIUM CHLORIDE 0.9% IV 210 ML 125 MG IVPB (11:15)
[2025-01-03] MEDS: IRINOTECAN HCL IVPB (11:16)
[2025-01-03] MEDS: MAGNESIUM SULF 4 GM/WATER100ML 4 GM/100 ML BAG IVPB (13:02)
[2025-01-03 14:00] VITALS: BP 116/73
[2025-01-03] MEDS: FLUOROURACIL 4,800 MG in SODIUM CHLORIDE 0.9% IV 88 ML IVPB (14:07)
[2025-01-03] MEDS: FLUOROURACIL 1,000 MG/20 ML VIAL 800 MG IV PUSH (14:07)
[2025-01-05 12:29] VITALS: BP 112/72; PULSE 84; TEMP 36.2; O2SAT 100
--- NOTE | 2025-01-05 12:31 | PC.NURSE ---
Patient here for pump disconnect
[2025-01-05] MEDS: HEPARIN SODIUM LOCK FLUSH 500 UNITS/5 ML SYRINGE IV PUSH (15:46)
== END 2025-01-10 13:21 ==
LOC: AMCINF 12:30
PROVIDERS: Visit Provider Internal Medicine Hematology & Oncology
DX: Z45.2 Encounter for adjustment and management of vascular access device (principal); C20 Malignant neoplasm of rectum; C78.7 Secondary malignant neoplasm of liver and intrahepatic bile duct; C77.5 Secondary and unspecified malignant neoplasm of intrapelvic lymph nodes; I10 Essential (primary) hypertension; D64.81 Anemia due to antineoplastic chemotherapy; D63.0 Anemia in neoplastic disease; D50.9 Iron deficiency anemia, unspecified; E11.9 Type 2 diabetes mellitus without complications; E78.5 Hyperlipidemia, unspecified; E66.9 Obesity, unspecified
CPT/HCPCS: 36415; 36591; 80047; 80048; 80053; 81001; 81002; 82043; 82378; 82607; 82728; 82746; 83540; 83550; 83735; 85025; 96360; 96361; 96365; 96367; 96368; 96372; 96375; 96411; 96413; 96415; 96416; 96417; 96523; 99212; A9270; G0463; J0461; J0640; J1100; J1200; J1720; J2469; J3475; J7030; J7040; J7050; J7060; J9035; J9190; J9206; J9263; J9303; Q0138; Q5106